=== PATIENT | female | born 1940 | race Caucasian/White ===

== ENCOUNTER → 2016-07-14 | Outpatient (CLI) | payer MEDICARE ==
--- NOTE | 2016-07-14 11:50 | FL ---
EXAMINATION TYPE: FL barium swallow DATE OF EXAM: 07/14/2016 CLINICAL HISTORY: Dysphagia, feels food getting stuck in the upper esophagus overlap month both solid s and liquids. TECHNIQUE: A double contrast esophagram is performed utilizing air and barium. A total of 48 second s of fluoroscopic time was utilized during procedure. COMPARISON: CTA chest July 22, 2013 FINDINGS: The esophagus shows some dysmotility particularly in the semiupright evaluation in emptying into the stomach. No evidence of hiatal hernia or stricture noted. No suspicious intraluminal mass or diverticulum is seen. No significant gastroesophageal reflux was seen during real time performance of this study. IMPRESSION: Some esophageal dysmotility otherwise unremarkable study.
== END | disposition home or self-care (01) ==
LOC: RADFLWHC 10:46
PROVIDERS: ATTEND Family Medicine
DX: K22.4 Dyskinesia of esophagus (principal)
CPT/HCPCS: 74220

== ENCOUNTER 2017-01-22 12:35 | Day surgery (SDC) | payer MEDICARE ==
[2017-01-21 13:31] VITALS: BMI 49.8
[~2017-01-22 12:35] MED LIST: DEXAMETHASONE SOD PHOSPHATE 4 MG/ML 1 ML VIAL IV ONE; FAMOTIDINE 20 MG/2 ML VIAL IV ONE; LACTATED RINGERS 1,000 ML IV SCH; ONDANSETRON 4 MG/2 ML VIAL IVP ONE; ceFAZolin 1,000 MG in DEXTROSE/WATER 1 50ML.BAG IV ONE; fentaNYL (PF) 50 MCG/ML 2 ML AMP IV PRN
[2017-01-22 13:32] LABS: Glucose,Whole Blood 100 mg/dL (75-99)
[2017-01-22 13:33] LABS: Basophils # (A) 0.1 k/uL (0-0.2); Basophils % (A) 1 %; CH 29.2; Eosinophils # (A) 0.4 k/uL (0-0.7); Eosinophils % (A) 4 %; HCT 42.4 % (34.0-46.0); HDW 2.42; HGB 13.6 gm/dL (11.4-16.0); Luc # (Auto) 0.11; Luc % (Auto) 1; Lymphocytes # (A) 2.1 k/uL (1.0-4.8); Lymphocytes % (A) 22 %; MCH 29.3 pg (25.0-35.0); MCV 91.8 fL (80.0-100.0); Mean Platelet Volume 7.3; Monocytes # (A) 0.6 k/uL (0-1.0); Monocytes % (A) 6 %; Neutrophils # (A) 6.4 k/uL (1.3-7.7); Neutrophils % (A) 67 %; RBC 4.62 m/uL (3.80-5.40); RDW 15.4 % (11.5-15.5); WBC 9.6 k/uL (3.8-10.6); WBC (Perox) 10.02
[2017-01-22] MEDS ORDERED: LIDOCAINE 1% 20 ML VIAL (10MG/ML) FOR IV START INTRADERMA ONE (13:33)
[2017-01-22] MEDS ORDERED: DEXAMETHASONE SOD PHOSPHATE 10 MG/ML 1 ML VIAL IV ONE (13:34)
[2017-01-22] MEDS ORDERED: fentaNYL (PF) 50 MCG/ML 2 ML AMP IV ONE (13:36)
[2017-01-22 13:45] LABS: ALT 37 U/L (9-52); AST 25 U/L (14-36); Alkaline Phosphatase 37 U/L (38-126); Anion Gap 9 mmol/L; Blood Urea Nitrogen 13 mg/dL (7-17); Calcium 9.7 mg/dL (8.4-10.2); Carbon Dioxide 30 mmol/L (22-30); Chloride 100 mmol/L (98-107); Glucose 105 mg/dL (74-99); Non-African American GFR(MDRD) >60 (>60 ml/min/1.73 sqM); Potassium 4.4 mmol/L (3.5-5.1); Sodium 139 mmol/L (137-145); Total Bilirubin 0.4 mg/dL (0.2-1.3); Total Protein 6.5 g/dL (6.3-8.2)
[2017-01-22] MEDS ORDERED: SODIUM CHLORIDE 0.9% 50 ML with ceFAZolin 1,000 MG IV ONE ×2 (13:59)
[2017-01-22] MEDS ORDERED: EPINEPHrine 1 MG/ML (MDV) 30 ML VIAL TOPICAL ONE (14:29)
--- NOTE | 2017-01-22 14:54 | P.OP ---
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 No pathology of the lungs were esophagus. No signs of any other tumors or masses of the head and neck. Lymphoma suspect. Procedure(s) Performed: Triple endoscopy with removal of a vallecular mass Anesthesia: GETA Surgeon: Amish Almanzar Estimated Blood Loss (ml): 20 Pathology: other (Vallecular mass) Condition: stable Disposition: PACU Indications for Procedure: This patient has had for aggressive dysphasia with associated cough. Examination reveals a large mass of the vallecula. Removal is recommended. Lymphoma suspect. Panendoscopy with removal of this mass was discussed and the patient wished to proceed forward. All risks, benefits, and alternative therapies were discussed. Consent was obtained and all questions were answered. Operative Findings: Large mass over 2 cm of the vallecula. Hard firm. Suspicious for lymphoma. Description of Procedure: This patient was taken to the operative room and placed in the supine position. A general inhalation anesthetic was administered to the patient by mask and subsequently intubated with a cuffed endotracheal tube by the department of anesthesia with a functioning IV line in place. Patient was monitored throughout the entire case by the department of anesthesia. Tooth guard was placed and a Jako laryngoscope was placed into the patient's mouth with care to avoid any trauma to the lips teeth gums and tongue. Mouth was opened tongue was depressed and the entire Kaveh and hypopharynx was evaluated including the piriform sinus epiglottic folds Ringwood cords postcricoid space vallecula epiglottis etc. this was placed on suspension on a Lewy and this large mass was identified. I removed the entire mass at his space which was attached to the lingual surface of the epiglottis into the vallecula. Hemostasis was obtained with use of topical adrenaline. After this large mass was removed with there is no visible mass left a bronchoscope was inserted into the patient's lungs and the lungs were evaluated with endoscopy. All 12 segments of the lungs were evaluated to the extent of visualization. There is no signs of any endobronchial lesions. The bronchoscope was removed and an esophagoscope was inserted and the entire length of the esophagus was evaluated. The esophagus was visualized from the upper to the lower esophageal sphincter the entire length was covered. All instrumentation was removed tooth guard was removed and the patient tolerated this well. Follow-up will be in the office in one week the patient is to contact me if any problems should arise.
[2017-01-22] MEDS ORDERED: HYDROmorphone 1 MG/ML 1 ML SYRINGE IVP ONE ×2 (15:05→15:24)
[2017-01-22] MEDS ORDERED: KETOROLAC 30 MG/ML 1 ML VIAL IVP ONE (15:06)
[2017-01-22 15:14] LABS: Glucose,Whole Blood 129 mg/dL (75-99)
[2017-01-22] MEDS ORDERED: ALBUTEROL NEBULIZED 2.5 MG/3 ML INHALATION STA (16:41)
[2017-01-22] MEDS ORDERED: ALBUTEROL NEBULIZED 2.5 MG/3 ML INHALATION PRN (17:18)
[2017-01-22] MEDS ORDERED: IBUPROFEN 600 MG TAB PO PRN (17:29)
[2017-01-22] MEDS: ACETAMINOPHEN TAB 500 MG TAB PO PRN (17:34)
[2017-01-22 17:44] LABS: Glucose,Whole Blood 201 mg/dL (75-99)
[2017-01-22] MEDS: INSULIN ASPART 100 UNIT/ML 1 ML 10 ML VIAL SQ SCH (17:55)
[2017-01-22 20:34] LABS: Glucose,Whole Blood 220 mg/dL (75-99)
[2017-01-22] MEDS: GABAPENTIN 400 MG CAP PO SCH ×2 (20:34→21:03)
[2017-01-22] MEDS: AMOXICILLIN 500 MG CAP PO SCH (20:34)
[2017-01-22] MEDS: VERAPAMIL 80 MG TAB PO SCH (20:34)
[2017-01-22] MEDS: OXYBUTYNIN CHLORIDE 5 MG TAB PO SCH (20:35)
[2017-01-22] MEDS: PRAZOSIN 1 MG CAP PO SCH (20:35)
[2017-01-22] MEDS ORDERED: LIDOCAINE VISCOUS 2% 15 ML CUP MUCOUS MEM PRN (20:42)
[2017-01-22] MEDS ORDERED: INSULIN DETEMIR 100 UNIT/ML 10 ML VIAL SQ SCH (21:00)
[2017-01-22] MEDS ORDERED: ATORVASTATIN 10 MG TAB PO SCH (21:00)
[2017-01-22] MEDS: IBUPROFEN 600 MG TAB PO SCH (21:07)
[2017-01-23] MEDS ORDERED: LEVOTHYROXINE 100 MCG TAB PO SCH (06:30)
[2017-01-23] MEDS ORDERED: INSULIN ASPART 100 UNIT/ML 1 ML 10 ML VIAL SQ SCH ×2 (07:30→12:30)
[2017-01-23 07:32] LABS: Glucose,Whole Blood 163 mg/dL (75-99)
[2017-01-23] MEDS: IBUPROFEN 600 MG TAB PO SCH ×2 (08:23→13:56)
[2017-01-23] MEDS: OXYBUTYNIN CHLORIDE 5 MG TAB PO SCH ×2 (08:23→16:29)
[2017-01-23] MEDS: PRAZOSIN 1 MG CAP PO SCH ×2 (08:24→16:29)
[2017-01-23] MEDS: VERAPAMIL 80 MG TAB PO SCH (08:24)
[2017-01-23] MEDS: AMOXICILLIN 500 MG CAP PO SCH (08:24)
[2017-01-23] MEDS: GABAPENTIN 400 MG CAP PO SCH ×2 (08:24→12:35)
[2017-01-23] MEDS ORDERED: FUROSEMIDE 40 MG TAB PO SCH (09:00)
[2017-01-23] MEDS ORDERED: LISINOPRIL 10 MG TAB PO SCH (09:00)
[2017-01-23] MEDS ORDERED: ALLOPURINOL 300 MG TAB PO SCH (09:00)
[2017-01-23] MEDS ORDERED: ATENOLOL 25 MG TAB PO SCH (09:00)
[2017-01-23 11:19] LABS: Glucose,Whole Blood 208 mg/dL (75-99)
[2017-01-23 12:16] LABS: Glucose,Whole Blood 199 mg/dL (75-99)
[2017-01-23 12:28] VITALS: RESP 18; TEMP 98.2
[2017-01-23] MEDS: ACETAMINOPHEN TAB 500 MG TAB PO PRN (12:35)
--- NOTE | 2017-01-23 14:55 | PN ---
PROGRESS NOTE DATE OF SERVICE: 01/23/17. CHIEF COMPLAINT: Respiratory failure. HISTORY OF PRESENT ILLNESS: This lady is feeling fine this morning. She has had no chest pain, shortness of breath, etc. She has had no bleeding. PHYSICAL EXAM: CHEST: Clear. Cardiac exam is normal. The abdomen is soft, nontender. IMPRESSION: 1. Respiratory failure. 2. Pickwickian syndrome. 3. Obesity. 4. Hypertension. 5. Diabetes. PLAN: Await further recommendations from Pulmonology. MMODL / IJN: [id number] /
--- NOTE | 2017-01-23 15:04 | HP ---
HISTORY AND PHYSICAL CHIEF COMPLAINT: Respiratory insufficiency. HISTORY OF PRESENT ILLNESS: This is another admission for this 77-year-old white female. She was in for an outpatient biopsy of a lesion on the epiglottis and had trouble with maintaining a good pulse ox. After surgery it was felt that she should be admitted. REVIEW OF SYSTEMS: She has had no confusion, syncope, neurologic deficits, change in vision or hearing, chest pain, palpitations, abdominal pain, etc. She has had no bleeding. Past medical history, family history, personal and social histories reveal that she has a significant problem with her weight, which causes a lot of difficulties for her. She is ALLERGIC to MACROBID, TETANUS, ISOPTIN AND SULFA. CURRENT MEDICATIONS: 1. Metformin 850 mg t.i.d. 2. Lantus 50 units once a day. 3. Prazosin 1 mg 3 times a day. 4. Glimepiride 4 mg once a day. 5. Levothyroxine 0.1 mg a day. 6. Verapamil CR 240 . 7. Allopurinol 300 mg once a day. 8. Atenolol 25 mg once a day. 9. Benazepril 10 mg once a day. 10.Lasix 20 mg once a day. 11.Lovastatin 20 mg at bedtime. 12.Vicodin 5 b.i.d. p.r.n. 13.Vitamin D 50,000 per month. 14.Humalog 4 units with breakfast, 6 with lunch and 10 with dinner. 15.Prilosec 20 mg once a day. 16.Gabapentin 400 mg 4 times a day. 17.Symbicort 160/4.5 two puffs twice a day. 18.Aspirin 81 mg. 19.Oxybutynin 5 mg 3 times a day. Remainder of the history is unremarkable. She used to smoke, but she does not any longer. PHYSICAL EXAMINATION: BMI is 50.5. Blood pressure is 150/56 with a pulse of 87, respirations of 34. She is afebrile. In general she appeared to be obese and slightly short of breath. Skin was slightly pale. Skin was dry. Head, ears, eyes, nose, mouth and throat were normal. Neck veins were not distended. It could be assessed. Carotids are normal. Ears were clear. Nose, mouth and throat were otherwise unremarkable. There was no blood seen in the throat. Chest was clear to auscultation and percussion. Cardiac exam demonstrated what sounded like sinus rhythm and no murmurs or extra sounds. The abdomen was very protuberant and nontender. Extremities were normal. Neurologically she was intact. ADMITTING DIAGNOSES: She is admitted to the hospital with the diagnoses: 1. Respiratory insufficiency. 2. Low pulse oximetry. 3. Obesity. 4. Possible pickwickian syndrome. 5. Hypertension. 6. Diabetes. PLAN: 1. Bed rest. 2. Monitor pulse ox. 3. Pulmonology consult. MMODL / IJN: [id number] /
--- NOTE | 2017-01-23 15:59 | XR ---
EXAMINATION TYPE: XR chest 1V DATE OF EXAM: 01/23/2017 COMPARISON: 12/27/2016 INDICATION: Hypoxemia TECHNIQUE: Single frontal view of the chest is obtained. FINDINGS: The heart size is enlarged. The pulmonary vasculature is normal. The lungs are clear. No suspicious infiltrates are evident. IMPRESSION: 1. Mild cardiomegaly.
[2017-01-23] MEDS ORDERED: NON-FORMULARY DRUG (Acetaminophen [Tylenol Arthritis] 1,300 MG) PO SCH (16:00)
[2017-01-23 16:05] VITALS: BP 191/80; PULSE 66
[2017-01-23 16:53] LABS: Glucose,Whole Blood 112 mg/dL (75-99)
[2017-01-23] MEDS: INSULIN ASPART 100 UNIT/ML 1 ML 10 ML VIAL SQ SCH (18:29)
--- NOTE | 2017-01-23 18:51 | P.CNPUL ---
History of Present Illness Consult date: 01/23/17 Reason for consult: hypoxemia History of present illness: This is a morbidly obese 77-year-old female patient with known history of obstructive sleep apnea and possibly component of a breast hypoventilation syndrome and history of COPD who was found to have a abnormal large vallecular mass and the patient was taken to the operating room by ENT and the patient underwent upper endoscopy and removal of the mass. The patient was supposed to get discharged home accordingly he was found to be hypoxic and for that reason she was kept in the hospital. If on a consultation was requested. The patient was placed on 2 L of oxygen by nasal cannula. With exertion she was desaturating as low as 83-84%. The patient claims that she has a pulse oximeter at home and typically she pulse ox is around 93-94%. She was a bit congested and she was having some increased wheezing more than the usual. She was not using incentive spirometer on a regular basis. Denied having any chest pain. No pleurisy. No hemoptysis no swelling in the lower extremities. Reported aspiration. An immediate chest x-ray was obtained and showed no acute abnormalities and it showed mild cardiomegaly. In fact by evening today the patient was already feeling better. Pulse ox on room air was up to 94-95%. However, she was still desaturating with activity although 2 L of October was enough to maintain above 90%. Despite all this, the patient was not having any new symptom and she felt rather stable. In terms of her COPD, the patient has been utilizing DuoNeb nebulized treatments around the clock on outpatient basis if she takes also Ventolin rescue inhaler. She has been compliant with her CPAP therapy was she did not bring his CPAP machine with her during this current hospitalization. She does not follow with stave machine tender on outpatient basis. Review of Systems Further review of system was done and the positive findings are almost above in history of present illness Past Medical History Past Medical History: Heart Failure, COPD, Diabetes Mellitus, Fibromyalgia, GERD /Reflux, Hyperlipidemia, Hypertension, Osteoarthritis (OA), Pneumonia, Skin Disorder, Sleep Apnea/CPAP/BIPAP, Thyroid Disorder Additional Past Medical History / Comment(s): COPD, obesity, obesity hypoventilation syndrome, obstructive sleep apnea, hiatal hernia, gout, psoriasis, cystic kidneys, sciatica, chronic back pain, fibromyalgia, diabetes mellitus, fibroid tumors per history, degenerative arthritis., And the patient also has had previous history of recurrent urine checked infections History of Any Multi-Drug Resistant Organisms: None Reported Past Surgical History: Tubal Ligation Additional Past Surgical History / Comment(s): D&C Past Anesthesia/Blood Transfusion Reactions: No Reported Reaction Past Psychological History: Anxiety Additional Psychological History / Comment(s): . Smoking Status: Former smoker Past Alcohol Use History: None Reported Additional Past Alcohol Use History / Comment(s): quit smoking 20 yrs ago, smoked for 30 yrs, 1 PPD Past Drug Use History: None Reported - Past Family History Mother Family Medical History: No Reported History Father Additional Family Medical History / Comment(s): pulmonary fibrosis Medications and Allergies Home Medications Medication Instructions Recorded Confirmed Type Albuterol Nebulized [Ventolin 2.5 mg INHALATION QID PRN 07/21/13 01/21/17 History Nebulized] Allopurinol [Zyloprim] 300 mg PO DAILY 07/21/13 01/21/17 History Atenolol [Tenormin] 25 mg PO DAILY 07/21/13 01/21/17 History Benazepril [Lotensin] 10 mg PO DAILY 07/21/13 01/21/17 History Gabapentin [Neurontin] 400 mg PO QID 07/21/13 01/21/17 History Insulin Glargine,Hum.rec.anlog 40 unit SQ HS 07/21/13 01/21/17 History [Lantus Solostar] Levothyroxine Sodium [Synthroid] 100 mcg PO DAILY 07/21/13 01/21/17 History Lovastatin [Mevacor] 20 mg PO HS 07/21/13 01/21/17 History Prazosin [Minipress] 1 mg PO TID 07/21/13 01/21/17 History Verapamil HCl [Verelan] 240 mg PO BID 07/21/13 01/21/17 History Glimepiride [Amaryl] 8 mg PO DAILY 05/06/14 01/21/17 History Oxybutynin Chloride [Ditropan] 5 mg PO TID 05/06/14 01/21/17 History metFORMIN HCL [Glucophage] 850 mg PO TID 05/06/14 01/21/17 History Acetaminophen [Tylenol Arthritis] 1,300 mg PO Q8HR 01/21/17 01/21/17 History Furosemide [Lasix] 40 mg PO DAILY 01/21/17 01/21/17 History Insulin Aspart [NovoLOG 2 unit SQ W/BRKFST 01/21/17 01/21/17 History (formulary)] Insulin Aspart [NovoLOG 7 unit SQ W/LUNCH 01/21/17 01/21/17 History (formulary)] Insulin Aspart [NovoLOG 10 unit SQ W/SUPPER 01/21/17 01/21/17 History (formulary)] Amoxicillin 1,000 mg PO BID #60 capsule 01/22/17 Rx Ibuprofen [Motrin] 600 mg PO Q6HR PRN #60 tab 01/22/17 Rx predniSONE 10 mg PO DIRECTED 9 Days #18 tab 01/23/17 Rx Allergies Allergy/AdvReac Type Severity Reaction Status Date / Time nitrofurantoin Allergy HIVES Verified 01/22/17 13:07 [From Macrobid] nitrofurantoin Allergy Rash/Hives Verified 01/22/17 13:07 macrocrystalline [From Macrobid] tetanus and diphtheria Allergy Swelling Verified 01/22/17 13:07 toxoids [tetanus & diphtheria toxoids] verapamil [From Isoptin] Allergy Rash/Hives Verified 01/22/17 13:07 Sulfa (Sulfonamide AdvReac Rash/Hives Verified 01/22/17 13:07 Antibiotics) Physical Exam Vitals: Vital Signs Temp Pulse Pulse Resp BP BP Pulse Ox 01/23/17 16:00 98.2 F 66 18 191/80 97 01/23/17 12:30 94 L 01/23/17 12:29 83 L 01/23/17 12:28 90 L 01/23/17 12:00 98.2 F 39 L 18 112/53 90 L 01/23/17 08:07 94 L 01/23/17 08:05 74 L 01/23/17 07:42 98.3 F 65 17 181/81 94 L 01/23/17 03:51 98.4 F 72 16 138/62 95 01/23/17 03:30 16 01/23/17 00:00 16 01/22/17 23:38 98.5 F 59 L 16 158/67 96 01/22/17 22:00 56 L 137/58 01/22/17 21:30 68 144/56 01/22/17 21:00 71 157/72 01/22/17 20:30 74 145/66 01/22/17 20:15 72 149/69 01/22/17 20:00 74 18 140/63 01/22/17 19:45 72 175/78 01/22/17 19:30 97.2 F L 76 18 137/85 95 Intake and Output 01/23/17 01/23/17 01/23/17 06:59 14:59 22:59 Other: Voiding Method Toilet # Voids 1 Obese, comfortable likely distress.Head exam was generally normal. There was no scleral icterus or corneal arcus. Mucous membranes were moist. Neck is short and supple and there is significant crowding of posterior pharynx. There is a little neck masses for now. Lung sounds are diminished bilaterally along with that there is some scattered expiratory wheezes throughout the lung barrios.Cardiac exam revealed the PMI to be normally situated and sized. The rhythm was regular and no extrasystoles were noted during several minutes of auscultation. The first and second heart sounds were normal and physiologic splitting of the second heart sound was noted. There were no murmurs, rubs, clicks, or gallops. Abdomen is obese soft nontender. No organomegaly. No direct tenderness rebound tensile guarding.Examination of the extremities revealed easily palpable radial, femoral and pedal pulses. There was no cyanosis , clubbing or edema. Neurologically the patient is awake and alert and there is no focal neurological deficit. Psychiatric the patient has appropriate mood and affect. Results - Laboratory Findings CBC and BMP: 01/22/17 13:24 01/22/17 13:24 Abnormal lab findings: Abnormal Labs 01/22/17 01/22/17 01/22/17 13:16 13:24 15:11 Glucose 105 H POC Glucose (mg/dL) 100 H 129 H Alkaline Phosphatase 37 L 01/22/17 01/22/17 01/23/17 17:43 20:31 07:28 Glucose POC Glucose (mg/dL) 201 H 220 H 163 H Alkaline Phosphatase 01/23/17 01/23/17 01/23/17 11:13 12:13 16:51 Glucose POC Glucose (mg/dL) 208 H 199 H 112 H Alkaline Phosphatase - Diagnostic Findings Chest x-ray: image reviewed Assessment and Plan Plan: Assessment 1 postoperative hypoxemia. I think that the patient was chronically hypoxemic and she admits that her room air pulse ox prior to her hospitalization was somewhat between drain to 94%. As such she has a component of chronic hypoxic respiratory failure in her oxygenation got worse following the procedure which included triple endoscopy and evacuation and excision of a vallecular lesion on the generator likely that the patient had developed postoperative atelectatic changes in lung bases contributing to her hypoxemia. No reported aspiration. Her COPD is slightly more active than the usual and this could be another contributing factor. Her chronic hypoxemia is most likely secondary to COPD and chronic obesity hypoventilation syndrome. 2 COPD 3 vallecular lesion, post resection awaiting pathology 4 morbid obesity 5 hypertension 6 fibromyalgia 7 diabetes mellitus 8 hypothyroidism 9 history of polycystic kidneys Plan The patient can be discharged home on DuoNeb neb last treatment [id number] , short course of prednisone burst taper starting with 30 mg for 3 days, 20 mg for 3 days and, grams for 3 days. Chest x-ray was reviewed and it shows no acute abnormalities. We'll arrange home O2 for this patient which I think it's ultimately going to be needed knowing that she has a tendency to become hypoxemic due to the above-mentioned comorbid conditions. We'll reevaluate her in the office in 2-3 weeks time and reassess the need for home O2. For now she can be discharged home on O2, portable tanks along with a prednisone burst taper. No evidence of any pneumonia. No evidence of any aspiration. No other comorbidities contributing to shortness of breath. Recommend taken the incentive spirometer home and performing it aggressively and this should also help with her oxygenation.
[2017-01-24] MEDS ORDERED: GLIMEPIRIDE 4 MG TAB PO SCH (09:00)
== END 2017-01-23 19:00 | disposition home health service (06) ==
LOC: OR 12:35 → 3OBS 14:56 → OR 01-23 19:00
PROVIDERS: ATTEND Otolaryngology
DX: J38.7 Other diseases of larynx (principal); E11.9 Type 2 diabetes mellitus without complications; I11.0 Hypertensive heart disease with heart failure; I50.9 Heart failure, unspecified; J96.11 Chronic respiratory failure with hypoxia; G47.33 Obstructive sleep apnea (adult) (pediatric); E66.2 Morbid (severe) obesity with alveolar hypoventilation; M79.7 Fibromyalgia; K21.9 Gastro-esophageal reflux disease without esophagitis; M19.90 Unspecified osteoarthritis, unspecified site; Z87.01 Personal history of pneumonia (recurrent); E07.9 Disorder of thyroid, unspecified; G89.29 Other chronic pain; K44.9 Diaphragmatic hernia without obstruction or gangrene; M10.9 Gout, unspecified; L40.9 Psoriasis, unspecified; N28.1 Cyst of kidney, acquired; M54.9 Dorsalgia, unspecified; Z99.89 Dependence on other enabling machines and devices; Z79.82 Long term (current) use of aspirin; Z79.4 Long term (current) use of insulin; Z79.899 Other long term (current) drug therapy; Z88.1 Allergy status to other antibiotic agents; Z88.2 Allergy status to sulfonamides; Z88.7 Allergy status to serum and vaccine; Z88.8 Allergy status to other drugs, medicaments and biological substances
CPT/HCPCS: 31540; 31622; 43191; 94640; 88305; 80053; 85025; 88342; 88331; 88341; 71010; J0171; J1100; J2405; J3010; J1885; J1170; J0690

== ENCOUNTER → 2017-03-06 | Outpatient (CLI) | payer MEDICARE ==
[2017-03-06 17:37] LABS: Blood Urea Nitrogen 14 mg/dL (7-17)
--- NOTE | 2017-03-07 21:48 | CT ---
EXAMINATION TYPE: CT ChestAbdPelvis w con DATE OF EXAM: 03/06/2017 COMPARISON: CTA chest July 22, 2013. CT abdomen September 28, 2009 HISTORY: Lymphoma. Suspect metastatic disease. Recent abnormal neck CT study with vallecula mass or l ymphoma discovered recently. CT DLP: 2582.5 mGycm. Automated Exposure Control for Dose Reduction was Utilized. CONTRAST: CT scan of the thorax, abdomen and pelvis is performed with IV Contrast, patient injected with 100ml mL of Omnipaque 300. FINDINGS: LUNGS: Dependent atelectasis is present in both lower lobes. There is no suspicious parenchymal nodul e or mass. There is no pleural effusion or pneumothorax seen bilaterally. The tracheobronchial talha e is patent. MEDIASTINUM: There are no greater than 1 cm hilar or mediastinal lymph nodes. There are stable sligh tly prominent but subcentimeter prevascular lymph nodes axial image 23. No pericardial effusion is se en. There is persistent mild cardiomegaly OTHER: No suspicious axillary adenopathy is seen.. LIVER/GB: Liver is diffusely hypodense consistent with fatty infiltration. PANCREAS: No significant abnormality is seen. SPLEEN: No significant abnormality is seen. ADRENALS: No significant abnormality is seen. KIDNEYS: There is some cortical thinning in both kidneys. There is simple appearing 1.5 cm cyst anter iorly mid pole level left kidney axial image 61 series 3 BOWEL: The oral contrast does not reach colonic level. There is no suspicious small or large bowel di latation. A few diverticula are seen in the left and sigmoid colon. There is no CT evidence for acute diverticulitis. GENITAL ORGANS: Heterogeneous slightly lobulated uterus is identified, there is 3.4 cm area likely re flecting subserosal fibroid, right ovarian lesion cannot be excluded on axial image 100. Pelvic ultra sound follow-up is advised to further evaluate. LYMPH NODES: No greater than 1cm abdominal or pelvic lymph nodes are appreciated. No suspicious groin adenopathy is noted. OSSEOUS STRUCTURES: There is exaggerated curvature in the thoracolumbar spine. There is moderate mult ilevel spurring and disc space narrowing. No suspicious destructive or lytic lesions are clearly iden tified. OTHER: No significant additional abnormality is seen. IMPRESSION: No suspicious adenopathy to suggest lymphoma involvement in the thorax abdomen or pelvis. Advise follow-up pelvic ultrasound for uterine or right ovarian abnormality.
== END | disposition home or self-care (01) ==
LOC: RADCTMAIN 16:58
PROVIDERS: ATTEND Internal Medicine Hematology & Oncology
DX: C82.01 Follicular lymphoma grade I, lymph nodes of head, face, and neck (principal)
CPT/HCPCS: 82565; 84520; 71260; 74177; 36415; Q9967

== ENCOUNTER → 2017-06-03 | Outpatient (CLI) | payer MEDICARE ==
--- NOTE | 2017-06-03 15:54 | US ---
EXAMINATION TYPE: US carotid duplex BILAT DATE OF EXAM: 06/03/2017 COMPARISON: NONE CLINICAL HISTORY: R09.89 CAROTID BRUIT. EXAM MEASUREMENTS: RIGHT: Peak Systolic Velocity (PSV) cm/sec ----- Right CCA: 70.6 ----- Right ICA: 178.0 ----- Right ECA: 73.3 ICA/CCA ratio: 2.5 RIGHT: End Diastole cm/sec ----- Right CCA: 14.0 ----- Right ICA: 40.9 ----- Right ECA: 16.3 LEFT: Peak Systolic Velocity (PSV) cm/sec ----- Left CCA: 79.7 ----- Left ICA: 121.5 ----- Left ECA: 121.5 ICA/CCA ratio: 1.5 LEFT: End Diastole cm/sec ----- Left CCA: 15.0 ----- Left ICA: 26.8 ----- Left ECA: 15.6 VERTEBRALS (direction of flow): Right Vertebral: Antegrade Left Vertebral: Antegrade Rhythm: Normal Mild amount of plaque visualized. Tortuous ICAs visualized bilaterally. Elevated velocities visualize d in the right ICA possibly due to tortuous vessel. Within the right neck, there is two hypoechoic areas visualized, the largest measuring 3.9 x 1.5 x 2 .3 cm, possible lymph nodes IMPRESSION: 1. There is plaque noted bilaterally with findings suggestive of a 50-69% stenosis involving the prox imal right ICA. However, there is a tortuous vasculature which can occasionally result in elevated ve locities. Therefore this could be correlated further with CTA of the carotid bifurcation to get a mel e assessment of the degree of stenosis. 2. There is evidence of pathologic lymphadenopathy within the right neck correlate clinically. Criteria for Assigning % of Stenosis / Diameter reduction (Estimation based on the indirect measurements of the internal carotid artery velocities (ICA PSV). 1. Normal (no stenosis)=ICA PSV < 125 cm/s: ratio < 2.0: ICA EDV<40 cm/s. 2. Less than 50% stenosis=ICA PSV < 125 cm/s: ratio < 2.0: ICA EDV<40 cm/s. 3. 50 to 69% stenosis=ICA PSV of 125 to 230 cm/s: ration 2.0 ? 4.0: ICA EDV 40-100 cm/s. 4. Greater than 70% stenosis to near occlusion= ICA PSV > 230 cm/s: ratio > 4.0: ICA EDV > 100 cm/s. 5. Near occlusion= ICA PSV velocities may be low or undetectable: variable ratio and ICA EDV. 6. Total occlusion=unable to detect flow.
== END | disposition home or self-care (01) ==
LOC: RADUSWWP 14:52
PROVIDERS: ATTEND Family Medicine
DX: I65.23 Occlusion and stenosis of bilateral carotid arteries (principal); R09.89 Other specified symptoms and signs involving the circulatory and respiratory systems; Z88.1 Allergy status to other antibiotic agents; Z88.7 Allergy status to serum and vaccine; Z88.8 Allergy status to other drugs, medicaments and biological substances
CPT/HCPCS: 93880

== ENCOUNTER 2017-10-13 12:59 | Emergency (ER) | payer MEDICARE ==
[2017-10-13 13:03] VITALS: RESP 20
[2017-10-13 13:51] LABS: HCT 40.5 % (34.0-46.0); HGB 12.6 gm/dL (11.4-16.0); Hypochromasia Slight; MCH 29.3 pg (25.0-35.0); MCHC 31.2 g/dL (31.0-37.0); MCV 94.2 fL (80.0-100.0); Mean Platelet Volume 6.9; Platelet Count 219 k/uL (150-450); RBC 4.31 m/uL (3.80-5.40); RDW 14.4 % (11.5-15.5); WBC 8.6 k/uL (3.8-10.6)
[2017-10-13 14:01] LABS: ALT 29 U/L (9-52); AST 21 U/L (14-36); Albumin 4.2 g/dL (3.5-5.0); Alkaline Phosphatase 46 U/L (38-126); Anion Gap 13 mmol/L; Blood Urea Nitrogen 23 mg/dL (7-17); Calcium 9.8 mg/dL (8.4-10.2); Carbon Dioxide 30 mmol/L (22-30); Chloride 96 mmol/L (98-107); Glucose 148 mg/dL (74-99); Potassium 4.9 mmol/L (3.5-5.1); Sodium 139 mmol/L (137-145); Total Bilirubin 0.3 mg/dL (0.2-1.3); Total Protein 6.8 g/dL (6.3-8.2)
[2017-10-13] MEDS ORDERED: FUROSEMIDE 10 MG/ML 4 ML VIAL IV STA (14:25)
--- NOTE | 2017-10-13 14:27 | ED ---
General Adult HPI - General Chief complaint: Extremity Problem,Nontraumatic Stated complaint: LEG SWELLING AND RASH Time Seen by Provider: 10/13/17 14:00 Source: patient, RN notes reviewed Mode of arrival: wheelchair Limitations: no limitations - History of Present Illness Initial comments: This is a 77-year-old female presents emergency Department complaining of bilateral leg swelling and redness over the last 4-5 days. Patient states it's progressing slowly getting worse. Patient states she's been trying to stay off her feet so it doesn't get worse but she is not elevating her legs all. Patient is not wearing WANDA hose. Patient is on Lasix are ready 40 mg once a day. Patient denies any fever chills. Patient states the distribution of the redness swelling is equal bilaterally. Patient denies any difficulty breathing or shortness of breath worsened normal. Patient denies any chest pain. Patient denies any lightheadedness dizziness or near syncopal episode. Patient denies any fever chills. - Related Data Home Medications Medication Instructions Recorded Confirmed Albuterol Nebulized [Ventolin 2.5 mg INHALATION RT-QID PRN 07/21/13 10/13/17 Nebulized] Allopurinol [Zyloprim] 300 mg PO DAILY 07/21/13 10/13/17 Atenolol [Tenormin] 25 mg PO DAILY 07/21/13 10/13/17 Benazepril [Lotensin] 10 mg PO DAILY 07/21/13 10/13/17 Gabapentin [Neurontin] 400 mg PO QID 07/21/13 10/13/17 Insulin Glargine,Hum.rec.anlog 40 unit SQ 07/21/13 10/13/17 [Lantus Solostar] Levothyroxine Sodium [Synthroid] 100 mcg PO DAILY 07/21/13 10/13/17 Lovastatin [Mevacor] 20 mg PO HS 07/21/13 10/13/17 Prazosin [Minipress] 1 mg PO TID 07/21/13 10/13/17 Verapamil HCl [Verelan] 240 mg PO BID 07/21/13 10/13/17 Glimepiride [Amaryl] 8 mg PO DAILY 05/06/14 10/13/17 Oxybutynin Chloride [Ditropan] 5 mg PO TID 05/06/14 10/13/17 metFORMIN HCL [Glucophage] 850 mg PO TID 05/06/14 10/13/17 Acetaminophen [Tylenol Arthritis] 1,300 mg PO Q8HR 01/21/17 10/13/17 Furosemide [Lasix] 40 mg PO DAILY 01/21/17 10/13/17 Insulin Aspart [NovoLOG 4 unit SQ W/BRKFST 01/21/17 10/13/17 (formulary)] Insulin Aspart [NovoLOG 7 unit SQ W/LUNCH 01/21/17 10/13/17 (formulary)] Insulin Aspart [NovoLOG 10 unit SQ W/SUPPER 01/21/17 10/13/17 (formulary)] Hydrochlorothiazide 25 mg PO DAILY 10/13/17 10/13/17 Ibuprofen 800 mg PO QID PRN 10/13/17 10/13/17 Omeprazole [PriLOSEC] 20 mg PO DAILY 10/13/17 10/13/17 Zolpidem [Ambien] 5 mg PO HS PRN 10/13/17 10/13/17 Allergies Allergy/AdvReac Type Severity Reaction Status Date / Time nitrofurantoin Allergy HIVES Verified 10/13/17 14:57 [From Macrobid] nitrofurantoin Allergy Rash/Hives Verified 10/13/17 14:57 macrocrystalline [From Macrobid] tetanus and diphtheria Allergy Swelling Verified 10/13/17 14:57 toxoids [tetanus & diphtheria toxoids] verapamil [From Isoptin] Allergy Rash/Hives Verified 10/13/17 14:57 Sulfa (Sulfonamide AdvReac Rash/Hives Verified 10/13/17 14:57 Antibiotics) Review of Systems ROS Statement: Those systems with pertinent positive or pertinent negative responses have been documented in the HPI. ROS Other: All systems not noted in ROS Statement are negative. Past Medical History Past Medical History: Heart Failure, COPD, Diabetes Mellitus, Fibromyalgia, GERD /Reflux, Hyperlipidemia, Hypertension, Osteoarthritis (OA), Pneumonia, Skin Disorder, Sleep Apnea/CPAP/BIPAP, Thyroid Disorder Additional Past Medical History / Comment(s): COPD, obesity, obesity hypoventilation syndrome, obstructive sleep apnea, hiatal hernia, gout, psoriasis, cystic kidneys, sciatica, chronic back pain, fibromyalgia, diabetes mellitus, fibroid tumors per history, degenerative arthritis., And the patient also has had previous history of recurrent urine checked infections History of Any Multi-Drug Resistant Organisms: None Reported Past Surgical History: Tubal Ligation Additional Past Surgical History / Comment(s): D&C Past Anesthesia/Blood Transfusion Reactions: No Reported Reaction Past Psychological History: Anxiety Smoking Status: Former smoker Past Alcohol Use History: None Reported Past Drug Use History: None Reported - Past Family History Mother Family Medical History: No Reported History Father Additional Family Medical History / Comment(s): pulmonary fibrosis General Exam - General Exam Comments Initial Comments: GENERAL: Patient is well-developed and well-nourished. Patient is nontoxic and well- hydrated and is in mild distress. ENT: Neck is soft and supple. No significant lymphadenopathy is noted. Oropharynx is clear. Moist mucous membranes. Neck has full range of motion without eliciting any pain. EYES: The sclera were anicteric and conjunctiva were pink and moist. Extraocular movements were intact and pupils were equal round and reactive to light. Eyelids were unremarkable. PULMONARY: Patient has some crackles in the bases bilaterally CARDIOVASCULAR: There is a regular rate and rhythm without any murmurs gallops or rubs. ABDOMEN: Soft and nontender with normal bowel sounds. No palpable organomegaly was noted. There is no palpable pulsatile mass. SKIN: Patient erythema of both legs from the ankle to about 40 split bilaterally. Patient also has 2+ edema bilaterally NEUROLOGIC: Patient is alert and oriented x3. Cranial nerves II through XII are grossly intact. Motor and sensory are also intact. Normal speech, volume and content. Symmetrical smile. MUSCULOSKELETAL: Normal extremities with adequate strength and full range of motion. LYMPHATICS: No significant lymphadenopathy is noted PSYCHIATRIC: Normal psychiatric evaluation. Limitations: no limitations Course Vital Signs 10/13/17 13:01 Temperature 98.5 F Pulse Rate 60 Respiratory 20 Rate Blood Pressure 150/86 O2 Sat by Pulse 92 L Oximetry Medical Decision Making - Medical Decision Making EKG shows normal sinus rhythm at 60 bpm [place] interval 264 QRS is 76 QT interval 412 QTC is 412. EKG shows no ST segment elevation or depression. Chest x-ray shows no acute abnormality. Patient was given Lasix in the emergency department. - Lab Data Result diagrams: 10/13/17 13:39 10/13/17 13:39 Lab Results 10/13/17 10/13/17 10/13/17 Range/Units 13:39 13:39 13:39 WBC 8.6 (3.8-10.6) k/uL RBC 4.31 (3.80-5.40) m/uL Hgb 12.6 (11.4-16.0) gm/dL Hct 40.5 (34.0-46.0) % MCV 94.2 (80.0-100.0) fL MCH 29.3 (25.0-35.0) pg MCHC 31.2 (31.0-37.0) g/dL RDW 14.4 (11.5-15.5) % Plt Count 219 (150-450) k/uL Hypochromasia Slight Sodium 139 (137-145) mmol/L Potassium 4.9 (3.5-5.1) mmol/L Chloride 96 L (98-107) mmol/L Carbon Dioxide 30 (22-30) mmol/L Anion Gap 13 mmol/L BUN 23 H (7-17) mg/dL Creatinine 0.66 (0.52-1.04) mg/dL Est GFR (CKD-EPI)AfAm >90 (>60 ml/min/1.73 sqM) Est GFR (CKD-EPI)NonAf 85 (>60 ml/min/1.73 sqM) Glucose 148 H (74-99) mg/dL Calcium 9.8 (8.4-10.2) mg/dL Magnesium 1.7 (1.6-2.3) mg/dL Total Bilirubin 0.3 (0.2-1.3) mg/dL AST 21 (14-36) U/L ALT 29 (9-52) U/L Alkaline Phosphatase 46 (38-126) U/L NT-Pro-B Natriuret Pep pg/mL Total Protein 6.8 (6.3-8.2) g/dL Albumin 4.2 (3.5-5.0) g/dL 10/13/17 Range/Units 13:39 WBC (3.8-10.6) k/uL RBC (3.80-5.40) m/uL Hgb (11.4-16.0) gm/dL Hct (34.0-46.0) % MCV (80.0-100.0) fL MCH (25.0-35.0) pg MCHC (31.0-37.0) g/dL RDW (11.5-15.5) % Plt Count (150-450) k/uL Hypochromasia Sodium (137-145) mmol/L Potassium (3.5-5.1) mmol/L Chloride (98-107) mmol/L Carbon Dioxide (22-30) mmol/L Anion Gap mmol/L BUN (7-17) mg/dL Creatinine (0.52-1.04) mg/dL Est GFR (CKD-EPI)AfAm (>60 ml/min/1.73 sqM) Est GFR (CKD-EPI)NonAf (>60 ml/min/1.73 sqM) Glucose (74-99) mg/dL Calcium (8.4-10.2) mg/dL Magnesium (1.6-2.3) mg/dL Total Bilirubin (0.2-1.3) mg/dL AST (14-36) U/L ALT (9-52) U/L Alkaline Phosphatase (38-126) U/L NT-Pro-B Natriuret Pep 202 pg/mL Total Protein (6.3-8.2) g/dL Albumin (3.5-5.0) g/dL Disposition Clinical Impression: Chronic cellulitis, Edema, peripheral Disposition: HOME SELF-CARE Condition: Good Additional Instructions: Patient should increase her Lasix to 40 mg twice a day for 3 days and follow-up with her physician. New. Patient is to return to the emergency department if the swelling is worse if there is any difficulty breathing or if there is any changes in the redness. Is patient prescribed a controlled substance at d/c from ED?: No Referrals: Aguilar Hays MD [Primary Care Provider] - 1-2 days Time of Disposition: 15:20
--- NOTE | 2017-10-13 14:55 | XR ---
EXAMINATION TYPE: XR chest 2V DATE OF EXAM: 10/13/2017 COMPARISON: 01/23/2017 INDICATION: Difficulty breathing TECHNIQUE: Frontal and lateral views of the chest are obtained. FINDINGS: The heart size is enlarged. The pulmonary vasculature is prominent. The lungs are clear. IMPRESSION: 1. No acute pulmonary process. 2. Cardiomegaly
[2017-10-13 16:00] VITALS: BP 156/69; PULSE 78; TEMP 98.3
== END 2017-10-13 15:30 | disposition home or self-care (01) ==
LOC: EC 12:59
DX: L03.116 Cellulitis of left lower limb (principal); L03.115 Cellulitis of right lower limb; I11.0 Hypertensive heart disease with heart failure; I50.9 Heart failure, unspecified; J44.9 Chronic obstructive pulmonary disease, unspecified; M10.9 Gout, unspecified; E11.9 Type 2 diabetes mellitus without complications; M79.7 Fibromyalgia; K21.9 Gastro-esophageal reflux disease without esophagitis; E78.5 Hyperlipidemia, unspecified; M19.90 Unspecified osteoarthritis, unspecified site; G47.33 Obstructive sleep apnea (adult) (pediatric); Z99.89 Dependence on other enabling machines and devices; Z87.2 Personal history of diseases of the skin and subcutaneous tissue; Z87.891 Personal history of nicotine dependence; Z79.4 Long term (current) use of insulin; Z79.899 Other long term (current) drug therapy; Z88.1 Allergy status to other antibiotic agents; Z88.7 Allergy status to serum and vaccine; Z88.8 Allergy status to other drugs, medicaments and biological substances; Z88.2 Allergy status to sulfonamides
CPT/HCPCS: 36415; 93005; 83880; 80053; 83735; 85027; 87040; 71046; 99284; 96374; J1940

== ENCOUNTER → 2017-12-22 | Outpatient (CLI) | payer MEDICARE ==
[2017-12-22 15:28] LABS: Blood Urea Nitrogen 19 mg/dL (7-17); Potassium 4.7 mmol/L (3.5-5.1)
== END | disposition home or self-care (01) ==
LOC: LABPAT 14:41
PROVIDERS: ATTEND Otolaryngology
DX: Z01.812 Encounter for preprocedural laboratory examination (principal); Z98.890 Other specified postprocedural states
CPT/HCPCS: 36415; 82565; 84132; 84520

== ENCOUNTER 2017-12-24 09:05 | Day surgery (SDC) | payer MEDICARE ==
[2017-12-21 11:36] VITALS: BMI 49.8
[~2017-12-24 09:05] MED LIST changes: +DEXAMETHASONE SOD PHOSPHATE 10 MG/ML 1 ML VIAL IV ONE; -DEXAMETHASONE SOD PHOSPHATE 4 MG/ML 1 ML VIAL IV ONE; +LIDOCAINE 1% 20 ML VIAL (10MG/ML) FOR IV START INTRADERMA PRN; +MIDAZOLAM 2 MG/2 ML VIAL IV PRN; +Pre Op ABX Message 1 EACH MISC MISCELLANE ONE; -ceFAZolin 1,000 MG in DEXTROSE/WATER 1 50ML.BAG IV ONE
[2017-12-24 10:30] LABS: Glucose,Whole Blood 135 mg/dL (75-99)
[2017-12-24] MEDS ORDERED: fentaNYL (PF) 50 MCG/ML 2 ML AMP IVP ONE (10:56)
[2017-12-24] MEDS ORDERED: DOXAPRAM 20 MG/ML 20 ML VIAL IV ONE (11:13)
[2017-12-24 12:23] VITALS: TEMP 97.2
--- NOTE | 2017-12-24 12:23 | P.OP ---
Date of Procedure: 12/24/17 Preoperative Diagnosis: Epiglottic mass Postoperative Diagnosis: Same Procedure(s) Performed: Direct microscopic laryngoscopy with removal of epiglottic mass Anesthesia: GETA Surgeon: Amish Almanzar Estimated Blood Loss (ml): 5 Pathology: other (epigottic mass) Condition: stable Disposition: PACU Indications for Procedure: This patient had previously been diagnosed with malignancy. The patient developed a growth on her epiglottis and removal was recommended for biopsy purposes. All risks, benefits, and alternative therapies were discussed. Consent was obtained and all questions were answered. 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 A general inhalation anesthetic was administered to the patient by mask and subsequently intubated with a cuffed endotracheal tube by the department of anesthesia with a functioning IV line in place. The patient was monitored throughout the entire case by the department of anesthesia. A tooth guard was placed over the upper gums and a Jako laryngoscope was placed into the patient' s mouth with care to avoid any trauma to the lips teeth gums or tongue. Mouth was opened to was depressed and the entire oropharynx and hypopharynx was evaluated. The base of tongue vallecula epiglottis lateral pharynx piriform sinuses vocal cords true and false vocal cords postcricoid space etc. was evaluated placed on suspension on a Lewy and under microscopic evaluation this mass was noted. I did remove the entire epiglottic mass in detail and consent as way as a fresh analysis to rule out lymphoma. This was not placed in formalin. The patient tolerated this well and was taken to postanesthesia recovery
[2017-12-24] MEDS ORDERED: ALBUTEROL NEBULIZED 2.5 MG/3 ML INHALATION ONE (12:32)
[2017-12-24] MEDS ORDERED: FUROSEMIDE 10 MG/ML 4 ML VIAL IV ONE (12:34)
[2017-12-24 12:56] LABS: Glucose,Whole Blood 173 mg/dL (75-99)
[2017-12-24 13:23] VITALS: RESP 16
[2017-12-24 14:04] VITALS: BP 138/90; PULSE 68
== END 2017-12-24 14:25 | disposition home or self-care (01) ==
LOC: OR 09:05
PROVIDERS: ATTEND Otolaryngology
DX: J38.7 Other diseases of larynx (principal); Z85.72 Personal history of non-Hodgkin lymphomas; K21.9 Gastro-esophageal reflux disease without esophagitis; M19.90 Unspecified osteoarthritis, unspecified site; E11.9 Type 2 diabetes mellitus without complications; J44.9 Chronic obstructive pulmonary disease, unspecified; E66.9 Obesity, unspecified; Z68.42 Body mass index [BMI] 45.0-49.9, adult; G47.33 Obstructive sleep apnea (adult) (pediatric); E07.9 Disorder of thyroid, unspecified; Z87.891 Personal history of nicotine dependence; I11.0 Hypertensive heart disease with heart failure; I50.9 Heart failure, unspecified; E78.5 Hyperlipidemia, unspecified; Z79.890 Hormone replacement therapy; Z79.4 Long term (current) use of insulin; Z99.81 Dependence on supplemental oxygen; Z79.899 Other long term (current) drug therapy; Z88.1 Allergy status to other antibiotic agents; Z88.2 Allergy status to sulfonamides
CPT/HCPCS: 31535; 88305; J1100; J1940; J2405; J3010

== ENCOUNTER → 2018-03-20 | Outpatient (CLI) | payer MEDICARE | END | disposition home or self-care (01) | LOC: RADPETMAIN 10:28 | PROVIDERS: ATTEND Internal Medicine Hematology & Oncology | DX: Z53.9 Procedure and treatment not carried out, unspecified reason (principal) ==

== ENCOUNTER → 2018-05-21 | Outpatient (CLI) | payer MEDICARE ==
--- NOTE | 2018-05-24 07:54 | PE ---
EXAMINATION TYPE: PET CT fusion skull to thigh DATE OF EXAM: 05/21/2018 COMPARISON: CT chest abdomen and pelvis March 06, 2017. 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 TECHNIQUE: Following the intravenous administration of 15.45 mCi of F-18 FDG, whole body images are performed from the skull base to the midthigh. Images are reviewed on the computer in the coronal, a xial, and sagittal planes. Reconstructed rotating images are created on independent workstation and reviewed on the computer. A noncontrast CT is performed in conjunction with the PET scan. Blood glucose level 168 SCAN: Initial Scan FINDINGS: Exam noted suboptimal secondary to patient's large body habitus. Mediastinal mean SUV: 1.24 Liver mean SUV: 2.76 SKULL BASE AND NECK: No areas of suspicious hypermetabolic uptake or adenopathy identified. CHEST, MEDIASTINUM, AND HILAR REGION: No areas of restricted hypermetabolic uptake. ABDOMEN AND PELVIS: Uptake in bowel and bladder is present. There is leakage of urine inferior to gerri dder noted. No suspicious adenopathy or hypermetabolic lymph nodes clearly are present. Liver and spl een are noted normal in size without suspicious focal hypermetabolic uptake. OSSEOUS STRUCTURES: No suspicious hypermetabolic uptake is present. OTHER CT: There is cardiomegaly. Dependent atelectasis bilateral lower lobes is present. Some cortical thinning in both kidneys is redemonstrated. Abdominal aorta is small in caliber with mild to moderate calcified plaque along the periphery. Some scattered pelvic phleboliths are present. Lobulated uterus is redemonstrated. Exaggerated kyphosis of thoracolumbar spine is redemonstrated with multilevel spurring. There is disc space narrowing and vacuum disc phenomenon at several levels in the lumbar spine. IMPRESSION: No suspicious adenopathy or hypermetabolic uptake to suggest metastatic disease or active neoplasm.
== END | disposition home or self-care (01) ==
LOC: RADPETMAIN 16:15
PROVIDERS: ATTEND Internal Medicine Hematology & Oncology
DX: C82.01 Follicular lymphoma grade I, lymph nodes of head, face, and neck (principal)
CPT/HCPCS: 78815; A9552

== ENCOUNTER 2018-08-19 14:53 | Inpatient (IN) | payer MEDICARE ==
[2018-08-19 14:58] LABS: Glucose,Whole Blood 66 mg/dL (75-99)
--- NOTE | 2018-08-19 15:37 | ED ---
General Adult HPI - General Chief complaint: Altered Mental Status Stated complaint: Hypoglycemia, altered Time Seen by Provider: 08/19/18 15:00 Source: patient, family, EMS, RN notes reviewed Mode of arrival: EMS Limitations: no limitations - History of Present Illness Initial comments: This is a 78-year-old female presents emergency Department with a past medical history significant for diabetes. Patient comes in today because she was altered mentally. Patient had the ambulance called by her son and EMS arrived they did a blood glucose and found her level to be 41. Patient does admit that she was not eating enough because she has lost her appetite recently. Patient states she took her insulin but then did not eat a very big lunch. Patient denies any symptoms prior to or after. Patient denies chest pain difficulty breathing shortness of breath. Patient denies any abdominal pain patient denies any nausea or vomiting per patient denies headache patient denies numbness weakness per patient denies lightheadedness or dizziness. Patient states she has pedal edema but she always does and is normal today. Patient states currently she feels at her baseline. - Related Data Home Medications Medication Instructions Recorded Confirmed Albuterol Nebulized [Ventolin 2.5 mg INHALATION RT-QID PRN 07/21/13 08/19/18 Nebulized] Allopurinol [Zyloprim] 300 mg PO DAILY 07/21/13 08/19/18 Atenolol [Tenormin] 25 mg PO DAILY 07/21/13 08/19/18 Benazepril [Lotensin] 10 mg PO DAILY 07/21/13 08/19/18 Gabapentin [Neurontin] 400 mg PO QID 07/21/13 08/19/18 Insulin Glargine,Hum.rec.anlog 30 unit SQ 07/21/13 08/19/18 [Lantus Solostar] Levothyroxine Sodium [Synthroid] 100 mcg PO DAILY 07/21/13 08/19/18 Lovastatin [Mevacor] 20 mg PO 07/21/13 08/19/18 Prazosin [Minipress] 1 mg PO TID 07/21/13 08/19/18 Glimepiride [Amaryl] 4 mg PO AC-BID 05/06/14 08/19/18 metFORMIN HCL [Glucophage] 850 mg PO TID 05/06/14 08/19/18 Furosemide [Lasix] 40 mg PO DAILY 01/21/17 08/19/18 Omeprazole [PriLOSEC] 20 mg PO BID 10/13/17 08/19/18 INSULIN LISPRO (HumaLOG) [HumaLOG] 10 units SQ AC-TID 08/19/18 08/19/18 Verapamil HCl [Verapamil ER] 240 mg PO BID 08/19/18 08/19/18 Allergies Allergy/AdvReac Type Severity Reaction Status Date / Time nitrofurantoin Allergy Rash/Hives Verified 08/19/18 15:57 Sulfa (Sulfonamide Allergy Rash/Hives Verified 08/19/18 15:57 Antibiotics) STEROIDS AdvReac Hallucinati Uncoded 08/19/18 15:57 ons Review of Systems ROS Statement: Those systems with pertinent positive or pertinent negative responses have been documented in the HPI. ROS Other: All systems not noted in ROS Statement are negative. Past Medical History Past Medical History: Cancer, Heart Failure, COPD, Diabetes Mellitus, Fibromyalg ia, GERD/Reflux, Hyperlipidemia, Hypertension, Osteoarthritis (OA), Pneumonia, Skin Disorder, Sleep Apnea/CPAP/BIPAP, Thyroid Disorder Additional Past Medical History / Comment(s): COPD, obesity, obesity hypoventilation syndrome, lymphoma, obstructive sleep apnea, hiatal hernia, gout, psoriasis, cystic kidneys, sciatica, chronic back pain, , diabetes mellitus, fibroid tumors per history, degenerative arthritis., And the patient also has had previous history of recurrent urine infections History of Any Multi-Drug Resistant Organisms: None Reported Past Surgical History: Tubal Ligation Additional Past Surgical History / Comment(s): D&C, tumor removed from throat Past Anesthesia/Blood Transfusion Reactions: No Reported Reaction, Postoperative Nausea & Vomiting (PONV) Past Psychological History: Anxiety Smoking Status: Former smoker Past Alcohol Use History: None Reported Past Drug Use History: None Reported - Past Family History Mother Family Medical History: No Reported History Father Additional Family Medical History / Comment(s): pulmonary fibrosis General Exam - General Exam Comments Initial Comments: GENERAL: Patient is well-developed and well-nourished. Patient is nontoxic and well- hydrated and is in no acute distress. ENT: Neck is soft and supple. No significant lymphadenopathy is noted. Oropharynx is clear. Moist mucous membranes. Neck has full range of motion without eliciting any pain. EYES: The sclera were anicteric and conjunctiva were pink and moist. Extraocular movements were intact and pupils were equal round and reactive to light. Eyelids were unremarkable. PULMONARY: Unlabored respirations. Good breath sounds bilaterally. No audible rales rhonchi or wheezing was noted. CARDIOVASCULAR: Patient is bradycardic at 50 beats a minute ABDOMEN: Soft and nontender with normal bowel sounds. Patient is morbidly obese SKIN: Skin is clear with no lesions or rashes and otherwise unremarkable. NEUROLOGIC: Patient is alert and oriented x3. Cranial nerves II through XII are grossly intact. Motor and sensory are also intact. Normal speech, volume and content. Symmetrical smile. MUSCULOSKELETAL: Normal extremities with adequate strength and full range of motion. 2+ edema bilaterally LYMPHATICS: No significant lymphadenopathy is noted PSYCHIATRIC: Normal psychiatric evaluation. Limitations: no limitations Course Vital Signs 08/19/18 08/19/18 08/19/18 14:57 15:03 16:26 Temperature 97.4 F L 97.4 F L Pulse Rate 52 L 52 L 53 L Respiratory 16 16 18 Rate Blood Pressure 122/44 122/44 109/44 O2 Sat by Pulse 99 99 98 Oximetry 08/19/18 08/19/18 17:00 18:15 Temperature Pulse Rate 50 L 55 L Respiratory 18 18 Rate Blood Pressure 109/45 109/70 O2 Sat by Pulse 98 98 Oximetry Medical Decision Making - Medical Decision Making EKG shows a third-degree block with a junctional rhythm at 53 bpm QRS is 90 QT interval 418 QTC is 392. Patient's EKG shows no ST segment elevation or depr ession. Patient was able to the emergency department keep her sugar up. I spoke with Dr. Lopez and he agreed to admit the patient admitted the patient I spoke with Dr. Rangel he will see the patient for the third-degree heart block and wanted me to stop the beta david and verapamil - Lab Data Result diagrams: 08/19/18 15:13 08/19/18 15:13 Lab Results 08/19/18 08/19/18 08/19/18 Range/Units 14:55 15:13 15:13 WBC 10.4 (3.8-10.6) k/uL RBC 3.74 L (3.80-5.40) m/uL Hgb 10.7 L (11.4-16.0) gm/dL Hct 35.0 (34.0-46.0) % MCV 93.6 (80.0-100.0) fL MCH 28.6 (25.0-35.0) pg MCHC 30.6 L (31.0-37.0) g/dL RDW 15.6 H (11.5-15.5) % Plt Count 214 (150-450) k/uL Neutrophils % 80 % Lymphocytes % 13 % Monocytes % 5 % Eosinophils % 1 % Basophils % 0 % Neutrophils # 8.3 H (1.3-7.7) k/uL Lymphocytes # 1.3 (1.0-4.8) k/uL Monocytes # 0.5 (0-1.0) k/uL Eosinophils # 0.1 (0-0.7) k/uL Basophils # 0.0 (0-0.2) k/uL Hypochromasia Moderate PT (9.0-12.0) sec INR (<1.2) APTT (22.0-30.0) sec Sodium 139 (137-145) mmol/L Potassium 5.4 H (3.5-5.1) mmol/L Chloride 103 (98-107) mmol/L Carbon Dioxide 25 (22-30) mmol/L Anion Gap 11 mmol/L BUN 51 H (7-17) mg/dL Creatinine 1.16 H (0.52-1.04) mg/dL Est GFR (CKD-EPI)AfAm 52 (>60 ml/min/1.73 sqM) Est GFR (CKD-EPI)NonAf 45 (>60 ml/min/1.73 sqM) Glucose 32 L* (74-99) mg/dL POC Glucose (mg/dL) 66 L (75-99) mg/dL POC Glu Piping Drafter ID Fior Muhammad Calcium 8.3 L (8.4-10.2) mg/dL Total Bilirubin 0.3 (0.2-1.3) mg/dL AST 26 (14-36) U/L ALT 21 (9-52) U/L Alkaline Phosphatase 48 (38-126) U/L Troponin I (0.000-0.034) ng/mL Total Protein 5.8 L (6.3-8.2) g/dL Albumin 3.5 (3.5-5.0) g/dL Urine Color Urine Appearance (Clear) Urine pH (5.0-8.0) Ur Specific [place] (1.001-1.035) Urine Protein (Negative) Urine Glucose (UA) (Negative) Urine Ketones (Negative) Urine Blood (Negative) Urine Nitrite (Negative) Urine Bilirubin (Negative) Urine Urobilinogen (<2.0) mg/dL Ur Leukocyte Esterase (Negative) Urine RBC (0-5) /hpf Urine WBC (0-5) /hpf Ur Squamous Epith Cells (0-4) /hpf Urine Bacteria (None) /hpf Hyaline Casts (0-2) /lpf Urine Mucus (None) /hpf Urine Opiates Screen (NotDetected) Ur Oxycodone Screen (NotDetected) Urine Methadone Screen (NotDetected) Ur Propoxyphene Screen (NotDetected) Ur Barbiturates Screen (NotDetected) U Tricyclic Antidepress (NotDetected) Ur Phencyclidine Scrn (NotDetected) Ur Amphetamines Screen (NotDetected) U Methamphetamines Scrn (NotDetected) U Benzodiazepines Scrn (NotDetected) Urine Cocaine Screen (NotDetected) U Marijuana (THC) Screen (NotDetected) 08/19/18 08/19/18 08/19/18 Range/Units 15:13 15:13 16:19 WBC (3.8-10.6) k/uL RBC (3.80-5.40) m/uL Hgb (11.4-16.0) gm/dL Hct (34.0-46.0) % MCV (80.0-100.0) fL MCH (25.0-35.0) pg MCHC (31.0-37.0) g/dL RDW (11.5-15.5) % Plt Count (150-450) k/uL Neutrophils % % Lymphocytes % % Monocytes % % Eosinophils % % Basophils % % Neutrophils # (1.3-7.7) k/uL Lymphocytes # (1.0-4.8) k/uL Monocytes # (0-1.0) k/uL Eosinophils # (0-0.7) k/uL Basophils # (0-0.2) k/uL Hypochromasia PT 10.2 (9.0-12.0) sec INR 0.9 (<1.2) APTT 23.2 (22.0-30.0) sec Sodium (137-145) mmol/L Potassium (3.5-5.1) mmol/L Chloride (98-107) mmol/L Carbon Dioxide (22-30) mmol/L Anion Gap mmol/L BUN (7-17) mg/dL Creatinine (0.52-1.04) mg/dL Est GFR (CKD-EPI)AfAm (>60 ml/min/1.73 sqM) Est GFR (CKD-EPI)NonAf (>60 ml/min/1.73 sqM) Glucose (74-99) mg/dL POC Glucose (mg/dL) 52 L (75-99) mg/dL POC Glu Piping Drafter ID Mitzi Cole Calcium (8.4-10.2) mg/dL Total Bilirubin (0.2-1.3) mg/dL AST (14-36) U/L ALT (9-52) U/L Alkaline Phosphatase (38-126) U/L Troponin I <0.012 (0.000-0.034) ng/mL Total Protein (6.3-8.2) g/dL Albumin (3.5-5.0) g/dL Urine Color Urine Appearance (Clear) Urine pH (5.0-8.0) Ur Specific [place] (1.001-1.035) Urine Protein (Negative) Urine Glucose (UA) (Negative) Urine Ketones (Negative) Urine Blood (Negative) Urine Nitrite (Negative) Urine Bilirubin (Negative) Urine Urobilinogen (<2.0) mg/dL Ur Leukocyte Esterase (Negative) Urine RBC (0-5) /hpf Urine WBC (0-5) /hpf Ur Squamous Epith Cells (0-4) /hpf Urine Bacteria (None) /hpf Hyaline Casts (0-2) /lpf Urine Mucus (None) /hpf Urine Opiates Screen (NotDetected) Ur Oxycodone Screen (NotDetected) Urine Methadone Screen (NotDetected) Ur Propoxyphene Screen (NotDetected) Ur Barbiturates Screen (NotDetected) U Tricyclic Antidepress (NotDetected) Ur Phencyclidine Scrn (NotDetected) Ur Amphetamines Screen (NotDetected) U Methamphetamines Scrn (NotDetected) U Benzodiazepines Scrn (NotDetected) Urine Cocaine Screen (NotDetected) U Marijuana (THC) Screen (NotDetected) 08/19/18 08/19/18 08/19/18 Range/Units 16:45 16:45 16:56 WBC (3.8-10.6) k/uL RBC (3.80-5.40) m/uL Hgb (11.4-16.0) gm/dL Hct (34.0-46.0) % MCV (80.0-100.0) fL MCH (25.0-35.0) pg MCHC (31.0-37.0) g/dL RDW (11.5-15.5) % Plt Count (150-450) k/uL Neutrophils % % Lymphocytes % % Monocytes % % Eosinophils % % Basophils % % Neutrophils # (1.3-7.7) k/uL Lymphocytes # (1.0-4.8) k/uL Monocytes # (0-1.0) k/uL Eosinophils # (0-0.7) k/uL Basophils # (0-0.2) k/uL Hypochromasia PT (9.0-12.0) sec INR (<1.2) APTT (22.0-30.0) sec Sodium (137-145) mmol/L Potassium (3.5-5.1) mmol/L Chloride (98-107) mmol/L Carbon Dioxide (22-30) mmol/L Anion Gap mmol/L BUN (7-17) mg/dL Creatinine (0.52-1.04) mg/dL Est GFR (CKD-EPI)AfAm (>60 ml/min/1.73 sqM) Est GFR (CKD-EPI)NonAf (>60 ml/min/1.73 sqM) Glucose (74-99) mg/dL POC Glucose (mg/dL) 108 H (75-99) mg/dL POC Glu Piping Drafter ID Calcium (8.4-10.2) mg/dL Total Bilirubin (0.2-1.3) mg/dL AST (14-36) U/L ALT (9-52) U/L Alkaline Phosphatase (38-126) U/L Troponin I (0.000-0.034) ng/mL Total Protein (6.3-8.2) g/dL Albumin (3.5-5.0) g/dL Urine Color Yellow Urine Appearance Clear (Clear) Urine pH 5.0 (5.0-8.0) Ur Specific [place] 1.014 (1.001-1.035) Urine Protein Negative (Negative) Urine Glucose (UA) Negative (Negative) Urine Ketones Negative (Negative) Urine Blood Negative (Negative) Urine Nitrite Positive H (Negative) Urine Bilirubin Negative (Negative) Urine Urobilinogen <2.0 (<2.0) mg/dL Ur Leukocyte Esterase Small H (Negative) Urine RBC 1 (0-5) /hpf Urine WBC 12 H (0-5) /hpf Ur Squamous Epith Cells 2 (0-4) /hpf Urine Bacteria Rare H (None) /hpf Hyaline Casts 24 H (0-2) /lpf Urine Mucus Rare H (None) /hpf Urine Opiates Screen Not Detected (NotDetected) Ur Oxycodone Screen Not Detected (NotDetected) Urine Methadone Screen Not Detected (NotDetected) Ur Propoxyphene Screen Not Detected (NotDetected) Ur Barbiturates Screen Not Detected (NotDetected) U Tricyclic Antidepress Not Detected (NotDetected) Ur Phencyclidine Scrn Not Detected (NotDetected) Ur Amphetamines Screen Not Detected (NotDetected) U Methamphetamines Scrn Not Detected (NotDetected) U Benzodiazepines Scrn Not Detected (NotDetected) Urine Cocaine Screen Not Detected (NotDetected) U Marijuana (THC) Screen Not Detected (NotDetected) 08/19/18 Range/Units 17:52 WBC (3.8-10.6) k/uL RBC (3.80-5.40) m/uL Hgb (11.4-16.0) gm/dL Hct (34.0-46.0) % MCV (80.0-100.0) fL MCH (25.0-35.0) pg MCHC (31.0-37.0) g/dL RDW (11.5-15.5) % Plt Count (150-450) k/uL Neutrophils % % Lymphocytes % % Monocytes % % Eosinophils % % Basophils % % Neutrophils # (1.3-7.7) k/uL Lymphocytes # (1.0-4.8) k/uL Monocytes # (0-1.0) k/uL Eosinophils # (0-0.7) k/uL Basophils # (0-0.2) k/uL Hypochromasia PT (9.0-12.0) sec INR (<1.2) APTT (22.0-30.0) sec Sodium (137-145) mmol/L Potassium (3.5-5.1) mmol/L Chloride (98-107) mmol/L Carbon Dioxide (22-30) mmol/L Anion Gap mmol/L BUN (7-17) mg/dL Creatinine (0.52-1.04) mg/dL Est GFR (CKD-EPI)AfAm (>60 ml/min/1.73 sqM) Est GFR (CKD-EPI)NonAf (>60 ml/min/1.73 sqM) Glucose (74-99) mg/dL POC Glucose (mg/dL) 102 H (75-99) mg/dL POC Glu Piping Drafter ID Fior Muhammad Calcium (8.4-10.2) mg/dL Total Bilirubin (0.2-1.3) mg/dL AST (14-36) U/L ALT (9-52) U/L Alkaline Phosphatase (38-126) U/L Troponin I (0.000-0.034) ng/mL Total Protein (6.3-8.2) g/dL Albumin (3.5-5.0) g/dL Urine Color Urine Appearance (Clear) Urine pH (5.0-8.0) Ur Specific [place] (1.001-1.035) Urine Protein (Negative) Urine Glucose (UA) (Negative) Urine Ketones (Negative) Urine Blood (Negative) Urine Nitrite (Negative) Urine Bilirubin (Negative) Urine Urobilinogen (<2.0) mg/dL Ur Leukocyte Esterase (Negative) Urine RBC (0-5) /hpf Urine WBC (0-5) /hpf Ur Squamous Epith Cells (0-4) /hpf Urine Bacteria (None) /hpf Hyaline Casts (0-2) /lpf Urine Mucus (None) /hpf Urine Opiates Screen (NotDetected) Ur Oxycodone Screen (NotDetected) Urine Methadone Screen (NotDetected) Ur Propoxyphene Screen (NotDetected) Ur Barbiturates Screen (NotDetected) U Tricyclic Antidepress (NotDetected) Ur Phencyclidine Scrn (NotDetected) Ur Amphetamines Screen (NotDetected) U Methamphetamines Scrn (NotDetected) U Benzodiazepines Scrn (NotDetected) Urine Cocaine Screen (NotDetected) U Marijuana (THC) Screen (NotDetected) Critical Care Time Critical Care Time: Yes Total Critical Care Time: 35 Disposition Clinical Impression: Hypoglycemia, Urinary tract infection, Third degree heart block Disposition: ADMITTED IP TO THIS HOSP Referrals: Aguilar Hays MD [Primary Care Provider] - 1-2 days Time of Disposition: 18:42
[2018-08-19 16:03] LABS: Basophils % (A) 0 %; Eosinophils # (A) 0.1 k/uL (0-0.7); Eosinophils % (A) 1 %; HGB 10.7 gm/dL (11.4-16.0); Hypochromasia Moderate; Lymphocytes # (A) 1.3 k/uL (1.0-4.8); Lymphocytes % (A) 13 %; MCH 28.6 pg (25.0-35.0); MCHC 30.6 g/dL (31.0-37.0); MCV 93.6 fL (80.0-100.0); Mean Platelet Volume 7.3; Monocytes # (A) 0.5 k/uL (0-1.0); Monocytes % (A) 5 %; Neutrophils # (A) 8.3 k/uL (1.3-7.7); Neutrophils % (A) 80 %; Platelet Count 214 k/uL (150-450); RBC 3.74 m/uL (3.80-5.40); RDW 15.6 % (11.5-15.5); WBC 10.4 k/uL (3.8-10.6)
[2018-08-19 16:09] LABS: Albumin 3.5 g/dL (3.5-5.0); Calcium 8.3 mg/dL (8.4-10.2); Total Bilirubin 0.3 mg/dL (0.2-1.3); Total Protein 5.8 g/dL (6.3-8.2)
[2018-08-19 16:12] LABS: INR 0.9 (<1.2); Partial Thromboplastin Time 23.2 sec (22.0-30.0); Prothrombin Time 10.2 sec (9.0-12.0)
[2018-08-19 16:15] LABS: Potassium 5.4 mmol/L (3.5-5.1)
[2018-08-19 16:20] LABS: Glucose,Whole Blood 52 mg/dL (75-99)
[2018-08-19] MEDS ORDERED: DEXTROSE 50% SYRINGE 50 ML IVP STA (16:20)
[2018-08-19] MEDS ORDERED: ACETAMINOPHEN TAB 325 MG TAB PO STA (16:25)
--- NOTE | 2018-08-19 16:41 | XR ---
EXAMINATION TYPE: XR chest 2V DATE OF EXAM: 08/19/2018 COMPARISON: 10/13/2017 HISTORY: Hypoglycemia. Altered mental status. TECHNIQUE: Frontal and lateral views of the chest are obtained. FINDINGS: Heart appears enlarged. There is mild pulmonary congestion. There are chest leads. There i s no definite pleural effusion. There is some coarsening of the lung markings. IMPRESSION: Cardiomegaly and mild pulmonary fibrosis. No overt heart failure. No significant change.
[2018-08-19 16:57] LABS: Glucose,Whole Blood 108 mg/dL (75-99)
[2018-08-19 17:15] LABS: Appearance,Urine Clear (Clear); Bacteria,Urine Rare /hpf; Bilirubin,Urine Negative (Negative); Blood,Urine Negative (Negative); Color,Urine Yellow; Glucose,Urine (UA) Negative (Negative); Hyaline Casts,Urine 24 /lpf (0-2); Ketones,Urine Negative (Negative); Leukocyte Esterase,Urine Small (Negative); Mucus,Urine Rare /hpf; Nitrite,Urine Positive (Negative); Protein,Urine Negative (Negative); RBC,Urine 1 /hpf (0-5); Specific Gravity,Urine 1.014 (1.001-1.035); Squamous Epithelial Cell,Urine 2 /hpf (0-4); Urobilinogen,Urine <2.0 mg/dL (<2.0); WBC,Urine 12 /hpf (0-5)
[2018-08-19 17:17] LABS: Amphetamine Screen,Urine Not Detected (NotDetected); Barbiturate Screen,Urine Not Detected (NotDetected); Benzodiazepines Screen,Urine Not Detected (NotDetected); Cocaine Screen,Urine Not Detected (NotDetected); Methadone Screen, Urine Not Detected (NotDetected); Opiate Screen,Urine Not Detected (NotDetected); Oxycodone Screen, Urine Not Detected (NotDetected); Phencyclidine Screen,Urine Not Detected (NotDetected); Tricyclic Antidepressant,Urine Not Detected (NotDetected); Urn Cannabinoid Scrn Not Detected (NotDetected)
[2018-08-19] MEDS ORDERED: cefTRIAXone IN SWFI 1,000 MG/10 ML SYRINGE IVP STA (17:24)
[2018-08-19 17:53] LABS: Glucose,Whole Blood 102 mg/dL (75-99)
[2018-08-19] MEDS ORDERED: SODIUM CHLORIDE 0.9% 1,000 ML IV ONE (19:04)
[2018-08-19 20:17] LABS: T4, Free (Free Thyroxine) 1.08 ng/dL (0.78-2.19)
[2018-08-19 20:48] LABS: Glucose,Whole Blood 113 mg/dL (75-99)
[2018-08-19 21:39] LABS: Glucose,Whole Blood 107 mg/dL (75-99)
[2018-08-19] MEDS ORDERED: ACETAMINOPHEN TAB 500 MG TAB PO PRN (22:04)
[2018-08-19] MEDS: metFORMIN 850 MG TAB PO SCH (22:31)
[2018-08-19] MEDS ORDERED: Magnesium Replacement Protocol 1 EACH MISC MISCELLANE PRN (22:50)
[2018-08-19] MEDS: MAGNESIUM SULFATE-D5W PMX 1 GM in DEXTROSE/WATER 1 100ML.BAG IVPB SCH (23:09)
[2018-08-19] MEDS: GABAPENTIN 400 MG CAP PO SCH (23:09)
[2018-08-20] MEDS: MAGNESIUM SULFATE-D5W PMX 1 GM in DEXTROSE/WATER 1 100ML.BAG IVPB SCH ×2 (00:50→02:00)
[2018-08-20 00:57] LABS: Glucose,Whole Blood 137 mg/dL (75-99)
[2018-08-20] MEDS: ALBUTEROL NEBULIZED 2.5 MG/3 ML INHALATION PRN ×3 (01:08→11:20)
[2018-08-20] MEDS ORDERED: FUROSEMIDE 10 MG/ML 4 ML VIAL IV STA (05:47)
[2018-08-20 06:03] LABS: Glucose,Whole Blood 101 mg/dL (75-99)
[2018-08-20] MEDS: LEVOTHYROXINE 100 MCG TAB PO SCH (06:03)
--- NOTE | 2018-08-20 08:53 | P.CRDCN ---
History of Present Illness Consult date: 08/20/18 Requesting physician: Aguilar Hays Reason for Consult (text): Complete heart block Chief complaint: Mental status changes History of present illness: This is a pleasant 78-year-old female with history of hypertension, diabetes, hyperlipidemia, sleep apnea, COPD, psoriasis, presented to the hospital with altered mental status. Her son called EMS, on arrival her blood sugar was checked which came back to be in the range of 40. Patient had taken her insulin but had not been eating enough at home because of decreased appetite. She denies any symptoms of abdominal discomfort, no chest discomfort or palpitations, denies any dizziness or lightheadedness. Chest x-ray showed cardiomegaly and mild pulmonary fibrosis. EKG on presentation here showed a significant sinus bradycardia with evidence of a junctional escape beats . Blood pressure on arrival 120/40 with a heart rate of 50, 99% on room air. White blood cell count 10.4, hemoglobin 10.7, platelet count 214, sodium 139, potassium 5.4, BUN 51 and creatinine 1.1. Glucose on arrival 32, magnesium 1.4, 2.3 this morning. Troponin 0.012. TSH 5.3 free T4 1.0. at the time of my examination this morning, patient is alert and oriented, symptom-free. This morning patient is in a normal sinus rhythm. Past Medical History Past Medical History: Cancer, Heart Failure, COPD, Diabetes Mellitus, Fibromyalgia, GERD/Reflux, Hyperlipidemia, Hypertension, Osteoarthritis (OA), Pneumonia, Skin Disorder, Sleep Apnea/CPAP/BIPAP, Thyroid Disorder Additional Past Medical History / Comment(s): COPD, obesity, obesity hypoventilation syndrome, lymphoma, obstructive sleep apnea, hiatal hernia, gout, psoriasis, cystic kidneys, sciatica, chronic back pain, , diabetes mellitus, fibroid tumors per history, degenerative arthritis., And the patient also has had previous history of recurrent urine infections History of Any Multi-Drug Resistant Organisms: None Reported Past Surgical History: Tubal Ligation Additional Past Surgical History / Comment(s): D&C, tumor removed from throat Past Anesthesia/Blood Transfusion Reactions: No Reported Reaction, Postoperative Nausea & Vomiting (PONV) Past Psychological History: Anxiety Additional Psychological History / Comment(s): . Smoking Status: Former smoker Past Alcohol Use History: None Reported Additional Past Alcohol Use History / Comment(s): quit smoking 20 yrs ago, smoked for 30 yrs, 1 PPD Past Drug Use History: None Reported - Past Family History Mother Family Medical History: No Reported History Father Additional Family Medical History / Comment(s): pulmonary fibrosis Medications and Allergies Home Medications Medication Instructions Recorded Confirmed Type Albuterol Nebulized [Ventolin 2.5 mg INHALATION RT-QID PRN 07/21/13 08/19/18 History Nebulized] Allopurinol [Zyloprim] 300 mg PO DAILY 07/21/13 08/19/18 History Atenolol [Tenormin] 25 mg PO DAILY 07/21/13 08/19/18 History Benazepril [Lotensin] 10 mg PO DAILY 07/21/13 08/19/18 History Gabapentin [Neurontin] 400 mg PO QID 07/21/13 08/19/18 History Insulin Glargine,Hum.rec.anlog 30 unit SQ HS 07/21/13 08/19/18 History [Lantus Solostar] Levothyroxine Sodium [Synthroid] 100 mcg PO DAILY 07/21/13 08/19/18 History Lovastatin [Mevacor] 20 mg PO HS 07/21/13 08/19/18 History Prazosin [Minipress] 1 mg PO TID 07/21/13 08/19/18 History Glimepiride [Amaryl] 4 mg PO AC-BID 05/06/14 08/19/18 History metFORMIN HCL [Glucophage] 850 mg PO TID 05/06/14 08/19/18 History Furosemide [Lasix] 40 mg PO DAILY 01/21/17 08/19/18 History Omeprazole [PriLOSEC] 20 mg PO BID 10/13/17 08/19/18 History Acetaminophen [Tylenol] 500 mg PO Q6H PRN 08/19/18 08/19/18 History Ascorbic Acid [Vitamin C] 1 tab PO DAILY 08/19/18 08/19/18 History Cyclobenzaprine [Flexeril] 1 tab PO Q8HR PRN 08/19/18 08/19/18 History INSULIN LISPRO (HumaLOG) [HumaLOG] 10 units SQ AC-TID 08/19/18 08/19/18 History Verapamil HCl [Verapamil ER] 240 mg PO BID 08/19/18 08/19/18 History Allergies Allergy/AdvReac Type Severity Reaction Status Date / Time nitrofurantoin Allergy Rash/Hives Verified 08/19/18 15:57 Sulfa (Sulfonamide Allergy Rash/Hives Verified 08/19/18 15:57 Antibiotics) STEROIDS AdvReac Hallucinati Uncoded 08/19/18 15:57 ons Physical Exam Vitals: Vital Signs Temp Pulse Pulse Resp BP BP Pulse Ox 08/20/18 06:26 73 18 08/20/18 06:19 77 18 08/20/18 04:10 97.9 F 69 22 166/84 98 08/20/18 01:15 62 16 08/20/18 01:08 64 16 08/19/18 23:49 63 21 107/57 98 08/19/18 22:12 97.8 F 43 L 22 98/59 99 08/19/18 20:48 98 F 53 L 16 117/36 99 08/19/18 19:57 97.8 F 43 L 22 98/59 99 08/19/18 18:15 55 L 18 109/70 98 08/19/18 17:00 50 L 18 109/45 98 08/19/18 16:26 53 L 18 109/44 98 08/19/18 15:03 97.4 F L 52 L 16 122/44 99 08/19/18 14:57 97.4 F L 52 L 16 122/44 99 Intake and Output 08/19/18 08/20/18 08/20/18 22:59 06:59 14:59 Intake Total 530 300 Balance 530 300 Intake: IV 50 Sodium Chloride 0.9% 1, 50 000 ml @ 50 mls/hr IV . Q20H [facility] Rx#:[id number] Intake, IV Titration 300 Amount Magnesium Sulfate-D5w Pmx 300 1 gm In Dextrose/Water 1 100ml.bag @ 100 mls/hr IVPB Q1H [facility] Rx#: [id number] Oral 480 Other: Voiding Method Bedside Commode # Voids 1 # Bowel Movements 1 Weight 120.5 kg PHYSICAL EXAMINATION: GENERAL: This is a 78-year-old female in no acute distress at the time of my examination HEENT: Head is atraumatic, normocephalic. Pupils equal, round. Sclera anicteric. Conjunctiva are clear. Mucous membranes of the mouth are moist. Neck is supple. There is no elevated jugular venous pressure.No carotid bruit is heard. HEART EXAMINATION: Heart S1, S2 soft systolic murmur is heard . CHEST EXAMINATION: Lungs are clear to auscultation and precussion. No chest wall tenderness is noted on palpation or with deep breathing. ABDOMEN: Soft, obese, nontender. Bowel sounds are heard. No organomegaly noted. EXTREMITIES: 2+ peripheral pulses with evidence of peripheral edema and no calf tenderness noted. NEUROLOGIC patient is awake, alert and oriented 3 . . Results 08/19/18 15:13 08/19/18 15:13 Cardiac Enzymes 08/19/18 08/19/18 Range/Units 15:13 15:13 AST 26 (14-36) U/L Troponin I <0.012 (0.000-0.034) ng/mL Coagulation 08/19/18 Range/Units 15:13 PT 10.2 (9.0-12.0) sec APTT 23.2 (22.0-30.0) sec CBC 08/19/18 Range/Units 15:13 WBC 10.4 (3.8-10.6) k/uL RBC 3.74 L (3.80-5.40) m/uL Hgb 10.7 L (11.4-16.0) gm/dL Hct 35.0 (34.0-46.0) % Plt Count 214 (150-450) k/uL Comprehensive Metabolic Panel 08/19/18 Range/Units 15:13 Sodium 139 (137-145) mmol/L Potassium 5.4 H (3.5-5.1) mmol/L Chloride 103 (98-107) mmol/L Carbon Dioxide 25 (22-30) mmol/L BUN 51 H (7-17) mg/dL Creatinine 1.16 H (0.52-1.04) mg/dL Glucose 32 L* (74-99) mg/dL Calcium 8.3 L (8.4-10.2) mg/dL AST 26 (14-36) U/L ALT 21 (9-52) U/L Alkaline Phosphatase 48 (38-126) U/L Total Protein 5.8 L (6.3-8.2) g/dL Albumin 3.5 (3.5-5.0) g/dL Current Medications Generic Name Dose Route Start Last Admin Trade Name Freq PRN Reason Stop Dose Admin Acetaminophen 650 mg 08/20/18 01:02 Tylenol Tab PO Q6HR PRN Fever and/ or Pain Albuterol Sulfate 2.5 mg 08/19/18 22:04 08/20/18 06:18 Ventolin Nebulized INHALATION 2.5 mg RT-QID PRN Administration Shortness Of Breath Allopurinol 300 mg 08/20/18 09:00 Zyloprim PO DAILY [facility] Gabapentin 400 mg 08/19/18 22:15 08/19/18 23:09 Neurontin PO 400 mg QID [facility] Administration Ceftriaxone Sodium 1 gm/ 50 mls @ 100 mls/hr 08/20/18 09:00 Sodium Chloride IVPB Q24HR [facility] Sodium Chloride 1,000 mls @ 50 mls/hr 08/19/18 19:04 08/19/18 20:57 Saline 0.9% IV 08/20/18 15:03 50 mls/hr .Q20H [facility] Administration Levothyroxine Sodium 100 mcg 08/20/18 06:30 08/20/18 06:03 Synthroid PO 100 mcg DAILY@0630 [facility] Administration Metformin HCl 850 mg 08/19/18 22:30 08/19/18 22:31 Glucophage PO Not Given TID [facility] Miscellaneous Information 1 each 08/19/18 22:50 Magnesium Per Protocol MISCELLANE DAILY PRN Per Protocol Protocol Pantoprazole Sodium 40 mg 08/20/18 09:00 Protonix PO BID [facility] Intake and Output 08/19/18 08/20/18 08/20/18 22:59 06:59 14:59 Intake Total 530 300 Balance 530 300 Intake: IV 50 Sodium Chloride 0.9% 1, 50 000 ml @ 50 mls/hr IV . Q20H [facility] Rx#:[id number] Intake, IV Titration 300 Amount Magnesium Sulfate-D5w Pmx 300 1 gm In Dextrose/Water 1 100ml.bag @ 100 mls/hr IVPB Q1H [facility] Rx#: [id number] Oral 480 Other: Voiding Method Bedside Commode # Voids 1 # Bowel Movements 1 Weight 120.5 kg 08/19/18 15:13 08/19/18 15:13 EKG Interpretations (text) Initial EKG on presentation here showed a complete heart block Assessment and Plan Plan: Assessment and plan #1 hyperglycemia with associated mental status changes #2 severe sinus bradycardia with evidence of a junctional escape beats #3 hypothyroidism #4 hypertension #5 hyperlipidemia #6 diabetes #7 sleep apnea #8 COPD #9 GERD #10 hypomagnesemia Plan TSH level came back at 5.3, recommend increasing the dose of Synthroid. Beta david and verapamil have been placed on hold. Obtain echocardiogram with Doppler study. Further recommendations to follow. DNP note has been reviewed, I agree with a documented findings and plan of care. Patient was seen and examined.
[2018-08-20] MEDS: ACETAMINOPHEN TAB 325 MG TAB PO PRN ×2 (10:10→22:57)
[2018-08-20] MEDS: PANTOPRAZOLE 40 MG TABLET PO SCH ×2 (10:11→20:59)
[2018-08-20] MEDS: ALLOPURINOL 300 MG TAB PO SCH (10:11)
[2018-08-20] MEDS: GABAPENTIN 400 MG CAP PO SCH ×4 (10:11→20:59)
[2018-08-20] MEDS: metFORMIN 850 MG TAB PO SCH ×3 (10:11→20:59)
--- NOTE | 2018-08-20 11:23 | PN ---
PROGRESS NOTE CHIEF COMPLAINTS: 1. Bradycardia and idioventricular rhythm. 2. Hypoglycemia. HISTORY OF PRESENT ILLNESS: This lady is improved in the sense that her pulse is now up in the 60s and her blood pressure is elevated. She is extremely dyspneic, however. She was given a dose of IV Lasix and is now diuresing profusely. PHYSICAL EXAM: Skin is dry. She is pale. Chest demonstrates extensive rales and rhonchi throughout with inspiratory and expiratory wheezing and prolonged expiratory phase. Cardiac exam is unchanged. IMPRESSION: 1. Hypoglycemia. 2. Arrhythmia. 3. Acute congestive heart failure. 4. Chronic congestive heart failure. PLAN: 1. Continue with diuresis. 2. Await Cardiology evaluation. MMODL / IJN: [id number] /
--- NOTE | 2018-08-20 11:29 | HP ---
HISTORY AND PHYSICAL CHIEF COMPLAINT: Weakness, hypoglycemia and bradycardia. HISTORY OF PRESENT ILLNESS: This is another admission for this 78-year-old white female. She is an insulin dependent diabetic. She has had a history of lymphoma of the throat. She came into the emergency room with a blood sugar of 30, but she is also found to have a pulse between 30 and 40 and looked like idioventricular rhythm according to the emergency room physician. She denied any chest pain, shortness of breath, etc. She was admitted. REVIEW OF SYSTEMS: She has had no focal neurologic deficits, change in vision or hearing, chest pain, cough, hemoptysis, sputum production, murmurs, rheumatic fever, orthopnea, PND, abdominal pain, nausea, vomiting, hematemesis, melena, hematochezia, jaundice, hematuria, frequency, urgency, renal failure, etc. Past medical history, family history and personal and social histories reveal that she cannot take Macrobid, tetanus, sulfa. She is on Humalog 4 units for breakfast, 6 at lunch and 10 bedtime along with metformin 850 mg t.i.d., levothyroxine 0.1 mg once a day, paresis 1 mg t.i.d., glimepiride 4 mg twice a day, lovastatin 20 at bedtime, verapamil 240 mg twice a day, atenolol 25 mg once a day, Benazepril 10 mg once a day, Allopurinol 300 mg once a day, Pepcid 20 mg once a day, vitamin D, Lasix 40 mg once a day, Lantus 50 units once a day, omeprazole 20 mg once a day, gabapentin 400 four times a day, Symbicort 160/4.5 two puffs twice a day, aspirin 81 mg a day, oxybutynin 5 mg t.i.d. Remainder of her history is unremarkable. She used to smoke but does not any longer. She does not abuse alcohol. She is quite obese. She is very immobile. PHYSICAL EXAM: Blood pressure is 101/60 with a pulse now in the 60s. She is afebrile and respirations were 36. In general, she appeared to be pale, obese and very short of breath. Skin was dry, lymph nodes not enlarged. Head, ears, eyes, nose, mouth, and throat were normal. Neck veins could not be assessed. Thyroid was not enlarged. Carotids seem to be normal. Chest demonstrated inspiratory and expiratory wheezing with extensive rales and rhonchi. Cardiac exam demonstrated a grade 1/6 systolic murmur with a rate in the 60s now. S3 and S4 could not be appreciated. The abdomen is protuberant and soft. The extremities demonstrated about 3+ edema. Neurologically. she is intact. She is admitted to the hospital diagnoses: 1. Hypoglycemia. 2. Insulin-dependent type 2 diabetes mellitus. 3. Bradycardia and DTO ventricular rhythm. 4. Probable acute congestive heart failure. 5. Chronic congestive heart failure. 6. Obesity. PLAN: 1. Bed rest. 2. IV fluids. 3. Correct hypoglycemia with IV glucose infusion. 4. Cardiology consult. 5. Echocardiogram. 6. BNP. MMMARIANGELL / YUMIKON: [id number] /
[2018-08-20 11:59] LABS: Glucose,Whole Blood 209 mg/dL (75-99)
[2018-08-20 16:29] LABS: Glucose,Whole Blood 151 mg/dL (75-99)
[2018-08-20 19:12] LABS: Hemoglobin A1C 5.9 % (4.0-6.0)
[2018-08-20 20:48] LABS: Glucose,Whole Blood 137 mg/dL (75-99)
[2018-08-21] MEDS: ALBUTEROL NEBULIZED 2.5 MG/3 ML INHALATION PRN (02:03)
[2018-08-21] MEDS: ACETAMINOPHEN TAB 325 MG TAB PO PRN ×2 (04:53→10:36)
[2018-08-21 06:18] LABS: Glucose,Whole Blood 109 mg/dL (75-99)
[2018-08-21] MEDS: LEVOTHYROXINE 100 MCG TAB PO SCH (08:33)
[2018-08-21] MEDS: GABAPENTIN 400 MG CAP PO SCH ×4 (08:50→20:37)
[2018-08-21] MEDS: metFORMIN 850 MG TAB PO SCH ×3 (08:50→20:37)
[2018-08-21] MEDS: PANTOPRAZOLE 40 MG TABLET PO SCH ×2 (08:50→20:37)
[2018-08-21] MEDS: ALLOPURINOL 300 MG TAB PO SCH (08:50)
[2018-08-21] MEDS ORDERED: SPIRONOLACTONE 25 MG TAB PO STA (09:52)
[2018-08-21] MEDS ORDERED: SACUBITRIL/VALSARTAN 24 MG-26 MG TABLET PO SCH (10:00)
[2018-08-21] MEDS ORDERED: amLODIPine 10 MG TAB PO SCH (10:45)
[2018-08-21] MEDS: ALBUTEROL NEBULIZED 2.5 MG/3 ML INHALATION SCH ×3 (11:26→20:47)
[2018-08-21 11:36] LABS: Basophils % (A) 0 %; Eosinophils # (A) 0.1 k/uL (0-0.7); Eosinophils % (A) 1 %; HCT 34.1 % (34.0-46.0); HGB 10.2 gm/dL (11.4-16.0); Hypochromasia Moderate; Lymphocytes % (A) 11 %; MCH 28.2 pg (25.0-35.0); MCHC 29.9 g/dL (31.0-37.0); MCV 94.3 fL (80.0-100.0); Mean Platelet Volume 6.8; Monocytes # (A) 0.4 k/uL (0-1.0); Monocytes % (A) 5 %; Neutrophils # (A) 7.4 k/uL (1.3-7.7); Neutrophils % (A) 82 %; Platelet Count 227 k/uL (150-450); RBC 3.62 m/uL (3.80-5.40); WBC 9.1 k/uL (3.8-10.6)
[2018-08-21 11:42] LABS: ALT 21 U/L (9-52); AST 16 U/L (14-36); African American GFR (CKD) >90 (>60 ml/min/1.73 sqM); Albumin 3.4 g/dL (3.5-5.0); Alkaline Phosphatase 48 U/L (38-126); Anion Gap 7 mmol/L; Blood Urea Nitrogen 20 mg/dL (7-17); Carbon Dioxide 34 mmol/L (22-30); Chloride 99 mmol/L (98-107); Glucose 285 mg/dL (74-99); Potassium 5.5 mmol/L (3.5-5.1); Sodium 140 mmol/L (137-145); Total Bilirubin 0.3 mg/dL (0.2-1.3); Total Protein 5.6 g/dL (6.3-8.2)
[2018-08-21 11:58] LABS: Glucose,Whole Blood 229 mg/dL (75-99)
--- NOTE | 2018-08-21 12:08 | XR ---
EXAMINATION TYPE: XR chest 2V DATE OF EXAM: 08/21/2018 COMPARISON: 08/19/2018 INDICATION: CHF TECHNIQUE: Frontal and lateral views of the chest are obtained. FINDINGS: The heart size is mildly prominent. The pulmonary vasculature is mildly prominent. No suspicious consolidations are evident. There is mild increased diffuse lung markings which could b e related to some mild pulmonary edema.. Clinical correlation recommended. IMPRESSION: 1. Clinical correlation recommended for mild CHF. Findings are slightly progressive from comparison.
--- NOTE | 2018-08-21 12:25 | PN ---
PROGRESS NOTE CHIEF COMPLAINT: Hypoglycemia, arrhythmia, and shortness of breath with heart failure. HISTORY OF PRESENT ILLNESS: This lady remains quite dyspneic, although she does feel a little bit better. She is diuresing slowly. Blood sugars are adequate. BNP is slightly elevated. Echocardiogram is pending. REVIEW OF SYSTEMS: She denies headaches, chest pain, abdominal pain, nausea, vomiting, etc. She is still very dyspneic. PHYSICAL EXAM: Vital signs are normal. Head, ears, eyes, nose, mouth, and throat are normal. Chest demonstrates rales and rhonchi bilaterally with expiratory wheezing and rhonchi. Cardiac exam is now sinus rhythm with a murmur. Abdomen is protuberant and soft. Extremities are unchanged. IMPRESSION: 1. Hypoglycemia. 2. Type 2 diabetes mellitus. 3. Bradycardia with idioventricular rhythm. 4. Obesity. 5. History of lymphoma of the larynx. 6. Reactive airway disease. 7. Acute congestive heart failure, probably diastolic. PLAN: 1. Updrafts. 2. Order physical therapy. 3. Repeat chest x-ray and labs. 4. Daily weights. 5. DVT prophylaxis with heparin. 6. Start Lasix orally. 7. Entresto b.i.d. 8. Aldactone 25 once a day. MMODL / IJN: [id number] /
--- NOTE | 2018-08-21 13:05 | P.PN ---
Subjective Progress Note Date: 08/21/18 This is a pleasant 78-year-old female with history of hypertension, diabetes, hyperlipidemia, sleep apnea, COPD, psoriasis, presented to the hospital with altered mental status. Her son called EMS, on arrival her blood sugar was checked which came back to be in the range of 40. Patient had taken her insulin but had not been eating enough at home because of decreased appetite. She denies any symptoms of abdominal discomfort, no chest discomfort or palpitations, denies any dizziness or lightheadedness. Chest x-ray showed cardiomegaly and mild pulmonary fibrosis. EKG on presentation here showed a significant sinus bradycardia with evidence of a junctional escape beats . Blood pressure on arrival 120/40 with a heart rate of 50, 99% on room air. White blood cell count 10.4, hemoglobin 10.7, platelet count 214, sodium 139, potassium 5.4, BUN 51 and creatinine 1.1. Glucose on arrival 32, magnesium 1.4, 2.3 this morning. Troponin 0.012. TSH 5.3 free T4 1.0. at the time of my exam ination this morning, patient is alert and oriented, symptom-free. This morning patient is in a normal sinus rhythm. 08/21: Patient complains of continued shortness of breath and lower extremity edema. She states she does not feel that the edema has improved She denies any chest pain. She states that she has been urinating with female catheter in place and this was emptied frequently yesterday and through the night. Daily weight today is not documented. She has been afebrile, heart rate 87, pulse ox 90% on 3 L nasal cannula, blood pressure 167/70. infrastructure developer overnight has been a heart rate in the 80s to low 100s. Sinus rhythm and sinus tachycardia. Bradycardia seems to have resolved. Gen: This is a 78-year-old morbidly obese female. She is sitting on the edge of the bed. No acute distress is noted. HEENT: Head is atraumatic, normocephalic. Pupils equal, round. Sclerae is anicteric. NECK: Supple. No JVD. No lymphadenopathy. No thyromegaly. LUNGS: Clear to auscultation. No intercostal retractions. HEART: Regular rate and rhythm. Systolic murmur. ABDOMEN: Soft. Bowel sounds are present. No masses. No tenderness. EXTREMITIES: 2+ pedal edema. No calf tenderness. Dorsalis pedis +2 bilaterally. Chronic skin changes noted to the lower extremities. NEUROLOGICAL: Patient is awake, alert and oriented x3. Cranial nerves 2 through 12 are grossly intact. Assessment: Sinus bradycardia with evidence of junctional escape beats, improved Hyperglycemia with associated mental status changes Hypertension Hyperlipidemia Diabetes mellitus type 2 Sleep apnea on CPAP Plan: Agree with Lasix transitioned to oral 40 mg twice daily Discontinue Entresto and spironolactone as they are contraindicated with hyperkalemia. Depending on repeat lab work, Aldactone may be resumed tomorrow. Start amlodipine 10 mg daily. Patient may require beta david to be resumed, we will continue to monitor. A follow-up on echocardiogram results TSH and free T4 Of further regimen patient's follow based upon clinical course. Nurse practitioner note has been reviewed, I agree with documented findings and plan of care. Patient was seen and examined. Objective - Vital Signs Vital signs: Vital Signs Temp 99.4 F 08/21/18 08:00 Pulse 87 08/21/18 08:00 Resp 20 08/21/18 08:00 BP 167/70 08/21/18 08:00 Pulse Ox 90 L 08/21/18 08:00 Intake & Output 08/20/18 08/21/18 08/21/18 18:59 06:59 18:59 Intake Total 720 240 Output Total 1500 500 Balance -780 -500 240 Intake: Oral 720 240 Output: Urine 1500 500 - Labs CBC & Chem 7: 08/21/18 11:01 08/21/18 11:01 Labs: Abnormal Lab Results - Last 24 Hours (Table) 08/20/18 08/20/18 08/20/18 Range/Units 11:32 16:21 20:46 POC Glucose (mg/dL) 209 H 151 H 137 H (75-99) mg/dL 08/21/18 Range/Units 06:17 POC Glucose (mg/dL) 109 H (75-99) mg/dL
[2018-08-21 13:09] LABS: T4, Free (Free Thyroxine) 0.87 ng/dL (0.78-2.19)
[2018-08-21] MEDS: HEPARIN SODIUM,PORCINE 5,000 UNIT/ML 1 ML VIAL SQ SCH (15:24)
[2018-08-21] MEDS: FUROSEMIDE 40 MG TAB PO SCH (15:24)
[2018-08-21 16:50] LABS: Glucose,Whole Blood 179 mg/dL (75-99)
[2018-08-21] MEDS: CARVEDILOL 6.25 MG TAB PO SCH (17:24)
[2018-08-21 20:35] LABS: Glucose,Whole Blood 163 mg/dL (75-99)
[2018-08-22] MEDS: HEPARIN SODIUM,PORCINE 5,000 UNIT/ML 1 ML VIAL SQ SCH ×4 (01:11→23:59)
[2018-08-22 05:41] LABS: Glucose,Whole Blood 181 mg/dL (75-99)
[2018-08-22] MEDS: CARVEDILOL 6.25 MG TAB PO SCH ×2 (06:26→17:31)
[2018-08-22] MEDS: LEVOTHYROXINE 100 MCG TAB PO SCH (06:26)
[2018-08-22 07:02] LABS: African American GFR (CKD) >90 (>60 ml/min/1.73 sqM); Anion Gap 8 mmol/L; Blood Urea Nitrogen 17 mg/dL (7-17); Carbon Dioxide 32 mmol/L (22-30); Chloride 99 mmol/L (98-107); Glucose 165 mg/dL (74-99); Sodium 139 mmol/L (137-145)
--- NOTE | 2018-08-22 08:11 | P.PN ---
Subjective Progress Note Date: 08/22/18 This is a pleasant 78-year-old female with history of hypertension, diabetes, hyperlipidemia, sleep apnea, COPD, psoriasis, presented to the hospital with altered mental status. Her son called EMS, on arrival her blood sugar was checked which came back to be in the range of 40. Patient had taken her insulin but had not been eating enough at home because of decreased appetite. She denies any symptoms of abdominal discomfort, no chest discomfort or palpitations, denies any dizziness or lightheadedness. Chest x-ray showed cardiomegaly and mild pulmonary fibrosis. EKG on presentation here showed a significant sinus bradycardia with evidence of a junctional escape beats . Blood pressure on arrival 120/40 with a heart rate of 50, 99% on room air. White blood cell count 10.4, hemoglobin 10.7, platelet count 214, sodium 139, potassium 5.4, BUN 51 and creatinine 1.1. Glucose on arrival 32, magnesium 1.4, 2.3 this morning. Troponin 0.012. TSH 5.3 free T4 1.0. at the time of my exam ination this morning, patient is alert and oriented, symptom-free. This morning patient is in a normal sinus rhythm. 08/21: Patient complains of continued shortness of breath and lower extremity edema. She states she does not feel that the edema has improved She denies any chest pain. She states that she has been urinating with female catheter in place and this was emptied frequently yesterday and through the night. Daily weight today is not documented. She has been afebrile, heart rate 87, pulse ox 90% on 3 L nasal cannula, blood pressure 167/70. threat monitoring analyst overnight has been a heart rate in the 80s to low 100s. Sinus rhythm and sinus tachycardia. Bradycardia seems to have resolved. 08/22: Patient continues to complain of shortness of breath with continued lower extremity edema. Patient is found sitting at the edge of the bed. She does not appear to be dyspneic at rest. Yesterday afternoon, blood pressure was up to 197/79 despite use of amlodipine and Coreg 6.125 mg twice daily was added. Blood pressure this morning is still elevated at 156/89, heart rate in the 70s, playground monitor has been a sinus rhythm in the 80s and 90s overnight. Amlodipine will be discontinued and patient started on Procardia XL 90 mg daily. Pulse ox 96% on 4 L. Patient's baseline is 3 L at home. Patient is finding the bed and recliner very uncomfortable for her back and knees and is anxious to be discharged home. Chest x-ray from yesterday reveals mild CHF. Finding slightly progressive from comparison. Daughter relates that patient seems to have more shortness of breath when using the CPAP and states that the mask is loose on her face. Advised that this needs to be evaluated and new mask most likely provided by [place]. No hypoxic episodes were noted at nighttime. Repeat lab work reveals sodium 139, potassium not reported as specimen hemolyzed, chloride 99, CO2 32, BUN 17 creatinine 0.59. TSH 4.860, free T4 0.87, cortisol level 31. Gen: This is a 78-year-old morbidly obese female. She is sitting on the edge of the bed. No acute distress is noted. daughter is at bedside. HEENT: Head is atraumatic, normocephalic. Pupils equal, round. Sclerae is anicteric. NECK: Supple. No JVD. No lymphadenopathy. No thyromegaly. LUNGS: Fine crackles to the bilateral bases. No intercostal retractions. HEART: Regular rate and rhythm. Systolic murmur. ABDOMEN: Soft. Bowel sounds are present. No masses. No tenderness. EXTREMITIES: 2+ pedal edema. No calf tenderness. Dorsalis pedis +2 bilaterally. Chronic skin changes noted to the lower extremities. NEUROLOGICAL: Patient is awake, alert and oriented x3. Cranial nerves 2 through 12 are grossly intact. Assessment: Sinus bradycardia with evidence of junctional escape beats, improved Hyperglycemia with associated mental status changes Hypertension Hyperlipidemia Diabetes mellitus type 2 Sleep apnea on CPAP Plan: Continue Lasix oral 40 mg twice daily Discontinue Entresto and spironolactone as they are contraindicated with hyperkalemia. Depending on repeat lab work, Aldactone may be resumed tomorrow. Discontinue amlodipine 10 mg daily. Continue Coreg 6.25 mg twice daily as started yesterday afternoon, and start Procardia XL 90 mg daily. Follow-up on echocardiogram results TSH and free T4 abnormal, primary to address. Further recommendations to follow based upon clinical course. Nurse practitioner note has been reviewed, I agree with documented findings and plan of care. Patient was seen and examined. Objective - Vital Signs Vital signs: Vital Signs Temp 98.4 F 08/22/18 04:00 Pulse 86 08/22/18 04:00 Resp 20 08/22/18 04:00 BP 156/89 08/22/18 04:00 Pulse Ox 96 08/22/18 04:00 Intake & Output 08/21/18 08/22/18 08/22/18 18:59 06:59 18:59 Intake Total 830 Output Total 1001 Balance 830 -1001 Intake: IV 60 Sodium Chloride 0.9% 1, 60 000 ml @ 50 mls/hr IV . Q20H [facility] Rx#:[id number] Intake, IV Titration 50 Amount cefTRIAXone 1 gm In 50 Sodium Chloride 0.9% 50 ml @ 100 mls/hr IVPB Q24HR [facility] Rx#:[id number] Oral 720 Output: Urine 1001 Other: Voiding Method Bedside Commode - Labs CBC & Chem 7: 08/21/18 11:01 08/22/18 05:30 Labs: Abnormal Lab Results - Last 24 Hours (Table) 08/21/18 08/21/18 08/21/18 Range/Units 11:01 11:01 11:57 RBC 3.62 L (3.80-5.40) m/uL Hgb 10.2 L (11.4-16.0) gm/dL MCHC 29.9 L (31.0-37.0) g/dL RDW 16.0 H (11.5-15.5) % Potassium 5.5 H (3.5-5.1) mmol/L Carbon Dioxide 34 H (22-30) mmol/L BUN 20 H (7-17) mg/dL Glucose 285 H (74-99) mg/dL POC Glucose (mg/dL) 229 H (75-99) mg/dL Total Protein 5.6 L (6.3-8.2) g/dL Albumin 3.4 L (3.5-5.0) g/dL TSH 4.860 H (0.465-4.680) mIU/L 08/21/18 08/21/18 08/22/18 Range/Units 16:49 20:34 05:30 RBC (3.80-5.40) m/uL Hgb (11.4-16.0) gm/dL MCHC (31.0-37.0) g/dL RDW (11.5-15.5) % Potassium (3.5-5.1) mmol/L Carbon Dioxide 32 H (22-30) mmol/L BUN (7-17) mg/dL Glucose 165 H (74-99) mg/dL POC Glucose (mg/dL) 179 H 163 H (75-99) mg/dL Total Protein (6.3-8.2) g/dL Albumin (3.5-5.0) g/dL TSH (0.465-4.680) mIU/L 08/22/18 Range/Units 05:40 RBC (3.80-5.40) m/uL Hgb (11.4-16.0) gm/dL MCHC (31.0-37.0) g/dL RDW (11.5-15.5) % Potassium (3.5-5.1) mmol/L Carbon Dioxide (22-30) mmol/L BUN (7-17) mg/dL Glucose (74-99) mg/dL POC Glucose (mg/dL) 181 H (75-99) mg/dL Total Protein (6.3-8.2) g/dL Albumin (3.5-5.0) g/dL TSH (0.465-4.680) mIU/L
[2018-08-22] MEDS: PANTOPRAZOLE 40 MG TABLET PO SCH ×2 (08:18→20:53)
[2018-08-22] MEDS: FUROSEMIDE 40 MG TAB PO SCH ×2 (08:18→16:44)
[2018-08-22] MEDS: ALLOPURINOL 300 MG TAB PO SCH (08:18)
[2018-08-22] MEDS: ACETAMINOPHEN TAB 325 MG TAB PO PRN ×2 (08:18→20:53)
[2018-08-22] MEDS: metFORMIN 850 MG TAB PO SCH ×3 (08:18→20:52)
[2018-08-22] MEDS: NIFEdipine XL 90 MG TAB.ER.24 PO SCH (08:18)
[2018-08-22] MEDS: GABAPENTIN 400 MG CAP PO SCH ×4 (08:18→20:53)
[2018-08-22] MEDS: ALBUTEROL NEBULIZED 2.5 MG/3 ML INHALATION SCH ×4 (09:50→20:35)
[2018-08-22 12:15] LABS: Glucose,Whole Blood 165 mg/dL (75-99)
[2018-08-22 17:15] LABS: Glucose,Whole Blood 178 mg/dL (75-99)
[2018-08-22 20:08] LABS: Glucose,Whole Blood 214 mg/dL (75-99)
[2018-08-23] MEDS: ALBUTEROL NEBULIZED 2.5 MG/3 ML INHALATION PRN (02:33)
[2018-08-23 06:06] LABS: Glucose,Whole Blood 181 mg/dL (75-99)
[2018-08-23] MEDS: CARVEDILOL 6.25 MG TAB PO SCH ×2 (06:08→17:24)
[2018-08-23] MEDS: LEVOTHYROXINE 100 MCG TAB PO SCH (06:08)
[2018-08-23] MEDS: ALBUTEROL NEBULIZED 2.5 MG/3 ML INHALATION SCH ×4 (08:42→19:41)
[2018-08-23] MEDS: HEPARIN SODIUM,PORCINE 5,000 UNIT/ML 1 ML VIAL SQ SCH ×2 (09:26→16:14)
[2018-08-23] MEDS: GABAPENTIN 400 MG CAP PO SCH ×4 (09:26→21:03)
[2018-08-23] MEDS: FUROSEMIDE 40 MG TAB PO SCH ×2 (09:26→16:14)
[2018-08-23] MEDS: metFORMIN 850 MG TAB PO SCH ×3 (09:26→21:03)
[2018-08-23] MEDS: ALLOPURINOL 300 MG TAB PO SCH (09:26)
[2018-08-23] MEDS: PANTOPRAZOLE 40 MG TABLET PO SCH ×2 (09:26→21:03)
[2018-08-23] MEDS: NIFEdipine XL 90 MG TAB.ER.24 PO SCH (09:26)
--- NOTE | 2018-08-23 09:55 | ECHOF ---
Referral Reason:heart block MEASUREMENTS -------- HEIGHT: 129.5 cm WEIGHT: 120.2 kg BP: RVIDd: 3.7 cm (< 3.3) IVSd: 1.2 cm (0.6 - 1.1) LVIDd: 4.8 cm (3.9 - 5.3) LVPWd: 1.4 cm (0.6 - 1.1) IVSs: 1.5 cm LVIDs: 2.3 cm LVPWs: 1.5 cm LAESV Index (A-L): 38.40 ml/m Ao Diam: 2.6 cm (2.0 - 3.7) AV Cusp: 1.4 cm (1.5 - 2.6) LA Diam: 3.7 cm (2.7 - 3.8) MV EXCURSION: 23.080 mm (> 18.000) MV EF SLOPE: 97 mm/s (70 - 150) EPSS: 0.8 cm MV E Agusto: 0.97 m/s MV DecT: 159 ms MV A Agusto: 0.97 m/s MV E/A Ratio: 1.00 AV maxP.37 mmHg AV meanP.48 mmHg RAP: 5.00 mmHg RVSP: 55.73 mmHg FINDINGS -------- Sinus rhythm. This was a technically adequate study. The left ventricular size is normal. There is mild concentric left ventricular hypertrophy. Overa ll left ventricular systolic function is normal with, an EF between 55 - 60 %. Increased LAP Grade 2 Diastolic Dysfunction. The right ventricle is mildly enlarged. LA is moderately dilated 34-39 ml/m2 The right atrial size is normal. Aortic valve is trileaflet and is moderately thickened. There is moderate aortic stenosis present. Peak/mean gradient across the Aortic Valve is 44.37mmHg / 21.48mmHg. The mitral valve is normal. The mitral valve leaflets are mildly thickened. Mild mitral regurgita tion is present. The tricuspid valve appears structurally normal. Mild tricuspid regurgitation present. There is m oderate pulmonary hypertension. The right ventricular systolic pressure, as measured by Doppler, is 55.73mmHg. There is no pulmonic regurgitation present. The aortic root size is normal. Normal inferior vena cava with normal inspiratory collapse consistent with estimated right atrial pre ssure of 5 mmHg. There is no pericardial effusion. CONCLUSIONS -------- 1. Sinus rhythm. 2. This was a technically adequate study. 3. The left ventricular size is normal. 4. There is mild concentric left ventricular hypertrophy. 5. Overall left ventricular systolic function is normal with, an EF between 55 - 60 %. 6. Increased LAP Grade 2 Diastolic Dysfunction. 7. The right ventricle is mildly enlarged. 8. LA is moderately dilated 34-39 ml/m2 9. The right atrial size is normal. 10. Aortic valve is trileaflet and is moderately thickened. 11. There is moderate aortic stenosis present. 12. Peak/mean gradient across the Aortic Valve is 44.37mmHg / 21.48mmHg. 13. The mitral valve is normal. 14. The mitral valve leaflets are mildly thickened. 15. Mild mitral regurgitation is present. 16. The tricuspid valve appears structurally normal. 17. Mild tricuspid regurgitation present. 18. There is moderate pulmonary hypertension. 19. The right ventricular systolic pressure, as measured by Doppler, is 55.73mmHg. 20. There is no pulmonic regurgitation present. 21. The aortic root size is normal. 22. Normal inferior vena cava with normal inspiratory collapse consistent with estimated right atrial pressure of 5 mmHg. 23. There is no pericardial effusion. MEDICAL TECHNOLOGIST: Renata Escamilla RDCS
[2018-08-23 12:03] LABS: Glucose,Whole Blood 195 mg/dL (75-99)
--- NOTE | 2018-08-23 14:28 | CDI ---
Documentation Clarification Form Date: 08/23/2018 2:06:48 PM From: Amaya Barahona RN, CCDS Phone: [phone] Admit Date: 08/19/2018 7:04:00 PM Patient Name: Sierra Marquez Visit Number: [id number] Discharge Date: ATTENTION: The Clinical Documentation Specialists (CDI) and [facility] Coding Staff appreciate your assistance in clarifying documentation. Please respond to the clarification below the line at the bottom and electronically sign. The CDI & [facility] Coding staff will review the response and follow-up if needed. Please note: Queries are made part of the Legal Health Record. If you have any questions, please contact the author of this message via ITS. Dr. Aguilar Hays Altered Mental Status was documented in the ED and Cardiology evaluation and further clarification is needed. History/Risk Factors: Heart Failure, COPD, Diabetes Mellitus, Hypertension, Clinical Indicators: 78-year-old female who present to ED because she was altered mentally. Her blood glucose was found by EMS to be 41. Patient does admit to not eating enough because she has lost her appetite recently. Vital signs on admission 122/44 52 16 97.4 99 % RA EKG shows a third-degree block with a junctional rhythm at 53 bpm Labs: Glucose 32, 66, 102, 107, 137, 101 Treatment: Monitor BS Glucophage PO In your professional opinion, please clarify the etiology of the Altered Mental Status, if known. Metabolic Encephalopathy due to Hypoglycemia Other condition (please specify) Unable to determine (Last Revision: May 2017) MTDD
--- NOTE | 2018-08-23 15:21 | P.PN ---
Subjective 78-year-old female presenting with altered mental status and low blood sugar. However she was also bradycardic at that time with junctional escape beats secondary to sick sinus syndrome blood pressure is normal TSH 5.3, dose of Synthroid increased. Beta blockers and verapamil were discontinued Started on carvedilol 6.25 mg twice daily, Lasix 40 mg by mouth twice a day and nifedipine 90 mg by mouth daily long-acting 147/62 mmHg Breath sounds are clear no rhonchi no crackles but she is not short of breath now. Pulse rate in the 80s Heart sounds are normal is a ejection systolic murmur is audible Abdomen soft Extremity is warm Hemoglobin 10.2, platelet count 227,000 Sodium 139 potassium 4.9 BUN 17 and creatinine 0.59 Impression Altered mental status secondary to hypoglycemia She was also bradycardic on beta blockers and Central blockers Metoprolol and verapamil was stopped. Procardia plus carvedilol was used She has a resting comfortably in bed today. She does not appear short of breath she has no chest discomfort dizziness or lightheadedness 2-D echo and Doppler study shows mild left ventricular hypertrophy with preserved LV systolic function 55-60% RV is mildly enlarged Moderate aortic stenosis. Gradient 40 Marcus and his mercury mean gradient 21 mmHg Suggest Watch blood pressure and if needed the dose of Procardia may be increased 120 mg by mouth daily Continue monitoring on telemetry for bradycardia Follow Dr. Licona as an outpatient Patient go home from a cardiac standpoint for the next 24-48 hours Objective - Vital Signs Vital signs: Vital Signs Temp 98.6 F 08/23/18 07:40 Pulse 82 08/23/18 15:16 Resp 18 08/23/18 11:48 BP 151/63 08/23/18 11:48 Pulse Ox 93 L 08/23/18 11:48 Intake & Output 08/22/18 08/23/18 08/23/18 18:59 06:59 18:59 Intake Total 240 240 480 Output Total 200 1700 500 Balance 40 -1460 -20 Weight 125.5 kg Intake: Oral 240 240 480 Output: Urine 200 1700 500 Other: Voiding Method Incontinent Incontinent - Labs CBC & Chem 7: 08/21/18 11:01 08/22/18 16:39 Labs: Abnormal Lab Results - Last 24 Hours (Table) 08/22/18 08/22/18 08/23/18 Range/Units 17:14 20:06 06:05 POC Glucose (mg/dL) 178 H 214 H 181 H (75-99) mg/dL 08/23/18 Range/Units 12:00 POC Glucose (mg/dL) 195 H (75-99) mg/dL
--- NOTE | 2018-08-23 16:20 | PN ---
PROGRESS NOTE DATE OF SERVICE: 08/22/2018 CHIEF COMPLAINT: Persistent shortness of breath. HISTORY OF PRESENT ILLNESS: This lady is still having a lot of difficulty with dyspnea. She has had no pain. She has had no fever, chills, hemoptysis, etc. We are still waiting on the echocardiogram report. PHYSICAL EXAMINATION: Breath sounds are very poor throughout. She has poor inspiratory effort. There are scattered rales throughout and occasional rhonchi. Cardiac exam is unchanged. Her heart rate is in the 60s and 70s. The abdomen is very protuberant, soft and nontender. Extremities are normal. IMPRESSION: 1. Hypoglycemia. 2. ventricular rhythm with bradycardia. 3. Congestive heart failure. 4. Morbid obesity. PLAN: 1. Await results of echocardiogram. 2. Continue efforts to try to increase her activity. REGGIEL / YUMIKON: [id number] /
[2018-08-23 17:04] LABS: Glucose,Whole Blood 184 mg/dL (75-99)
--- NOTE | 2018-08-23 18:26 | PN ---
PROGRESS NOTE CHIEF COMPLAINT: Persistent shortness of breath. HISTORY OF PRESENT ILLNESS: This lady has continued to feel extremely dyspneic. She apparently had acute difficulty breathing during the night. She denies any cough, hemoptysis, pleuritic chest pain, palpitations, etc. PHYSICAL EXAMINATION: Her vital signs are normal. Pulse is good. She is afebrile. On exam, she has extremely poor breath sounds throughout on both sides with extensive rales, rhonchi and prolonged expiratory phase with wheezing. Cardiac exam is unremarkable. The abdomen is protuberant, soft, nontender. She is very inactive. IMPRESSION: 1. Hypoglycemia. 2. Bradycardia with idioventricular rhythm. 3. Morbid obesity. 4. Congestive heart failure. PLAN: Continue efforts to try to improve her respiratory function while considering whether she will be able to go back home or not after this hospitalization. MICHI / ELENA: [id number] /
[2018-08-23 20:37] LABS: Glucose,Whole Blood 218 mg/dL (75-99)
[2018-08-23] MEDS: ACETAMINOPHEN TAB 325 MG TAB PO PRN (21:03)
[2018-08-24] MEDS: HEPARIN SODIUM,PORCINE 5,000 UNIT/ML 1 ML VIAL SQ SCH ×4 (01:13→23:05)
[2018-08-24 05:55] LABS: Glucose,Whole Blood 158 mg/dL (75-99)
[2018-08-24] MEDS: LEVOTHYROXINE 100 MCG TAB PO SCH (06:09)
[2018-08-24] MEDS: CARVEDILOL 6.25 MG TAB PO SCH ×2 (06:10→17:10)
[2018-08-24] MEDS: ALBUTEROL NEBULIZED 2.5 MG/3 ML INHALATION SCH ×4 (08:45→21:46)
[2018-08-24] MEDS: GABAPENTIN 400 MG CAP PO SCH ×4 (09:02→21:49)
[2018-08-24] MEDS: PANTOPRAZOLE 40 MG TABLET PO SCH ×2 (09:02→21:49)
[2018-08-24] MEDS: NIFEdipine XL 90 MG TAB.ER.24 PO SCH (09:02)
[2018-08-24] MEDS: ALLOPURINOL 300 MG TAB PO SCH (09:02)
[2018-08-24] MEDS: FUROSEMIDE 40 MG TAB PO SCH ×2 (09:03→16:42)
[2018-08-24] MEDS: metFORMIN 850 MG TAB PO SCH ×3 (09:03→21:49)
--- NOTE | 2018-08-24 10:59 | CDI ---
Documentation Clarification Form Date: 08/24/2018 10:33:51 AM From: Amaya Barahona RN, CCDS Admit Date: 08/19/2018 7:04:00 PM Patient Name: Sierra Marquez Visit Number: [id number] Discharge Date: ATTENTION: The Clinical Documentation Specialists (CDI) and [facility] Coding Staff appreciate your assistance in clarifying documentation. Please respond to the clarification below the line at the bottom and electronically sign. The CDI & [facility] Coding staff will review the response and follow-up if needed. Please note: Queries are made part of the Legal Health Record. If you have any questions, please contact the author of this message via ITS. Dr. Aguilar Hays The patient presented with the following respiratory symptoms: extremely dyspnea and difficulty breathing. History/Risk Factors: Morbid obesity, Congestive heart failure diastolic, COPD, Diabetes Mellitus, Hypertension, Sleep Apnea/CPAP/BIBAP, Former smoker Clinical Indicators: 78-year-old female who presents with hypoglycemia. On 08/21/18 Patient complains of continued shortness of breath and lower extremity edema, pulse ox 90 % on 3/L nasal cannula, blood pressure 167/70. She had 2+ pedal edema. Chest demonstrates extensive rales and rhonchi throughout with inspiratory and expiratory wheezing and prolonged expiratory phase. Pulse ox: 84 % 5/L NC, 93 % 4/L NC, 92 % 3/L NC HR 103 Chest x-ray: : Clinical correlation recommended for mild CHF. Treatment: IV Lasix (change to po) Breathing tx: Ventolin Nebulized Monitor O2 Sat's In your professional opinion, can you please clarify if these findings signify one of the following conditions? Acute Hypoxic Respiratory Failure Acute Hypercapnia Respiratory Failure Other Diagnosis, please specify Unable to determine (Last Revision: May 2017) MTDD
[2018-08-24 12:17] LABS: Glucose,Whole Blood 175 mg/dL (75-99)
--- NOTE | 2018-08-24 12:57 | PN ---
PROGRESS NOTE CHIEF COMPLAINT: Hypoglycemia and arrhythmia. HISTORY OF PRESENT ILLNESS: This lady is doing much better. Shortness of breath is improved. She is increasing her activity. REVIEW OF SYSTEMS: She has had no chest pain, fever, chills, etc. She has had no nausea, vomiting. She has been having some cramps in the lower extremities. Echocardiogram is back and demonstrates aortic stenosis with diastolic dysfunction, but a good ejection fraction. PHYSICAL EXAM: Chest is improved. There are fewer rales and rhonchi. Breath sounds are greatly improved posteriorly. Cardiac exam is unchanged. Abdomen is soft, nontender. IMPRESSION: 1. Hypoglycemia. 2. Type 2 diabetes. 3. Bradycardia with idioventricular rhythm-resolved. 4. Diastolic heart failure. 5. Aortic stenosis. 6. Obesity. PLAN: Continue to progress her activity and discharge once she is less short of breath and more ambulatory. MICHI / ELENA: [id number] /
--- NOTE | 2018-08-24 14:41 | P.PN ---
Subjective Progress Note Date: 08/24/18 This is a pleasant 78-year-old female with history of hypertension, diabetes, hyperlipidemia, sleep apnea, COPD, psoriasis, presented to the hospital with altered mental status. Her son called EMS, on arrival her blood sugar was checked which came back to be in the range of 40. Patient had taken her insulin but had not been eating enough at home because of decreased appetite. She denies any symptoms of abdominal discomfort, no chest discomfort or palpitations, denies any dizziness or lightheadedness. Chest x-ray showed cardiomegaly and mild pulmonary fibrosis. EKG on presentation here showed a significant sinus bradycardia with evidence of a junctional escape beats . Blood pressure on arrival 120/40 with a heart rate of 50, 99% on room air. White blood cell count 10.4, hemoglobin 10.7, platelet count 214, sodium 139, potassium 5.4, BUN 51 and creatinine 1.1. Glucose on arrival 32, magnesium 1.4, 2.3 this morning. Troponin 0.012. TSH 5.3 free T4 1.0. at the time of my exam ination this morning, patient is alert and oriented, symptom-free. This morning patient is in a normal sinus rhythm. 08/24/2018 Patient was seen and examined this morning, overall doing well. Blood pressure 140/60 with a heart rate in the 80s. Objective - Vital Signs Vital signs: Vital Signs Temp 98.3 F 08/24/18 11:13 Pulse 86 08/24/18 12:45 Resp 20 08/24/18 11:13 BP 178/65 08/24/18 11:13 Pulse Ox 93 L 08/24/18 11:13 Intake & Output 08/23/18 08/24/18 08/24/18 18:59 06:59 18:59 Intake Total 702 290 Output Total 500 250 600 Balance 202 -250 -310 Weight 120.5 kg Intake: Intake, IV Titration 50 Amount cefTRIAXone 1 gm In 50 Sodium Chloride 0.9% 50 ml @ 100 mls/hr IVPB Q24HR [facility] Rx#:[id number] Oral 702 240 Output: Urine 500 250 600 Other: Voiding Method Incontinent # Voids 1 # Bowel Movements 1 - Exam PHYSICAL EXAMINATION: GENERAL: This is a 78-year-old female in no acute distress at the time of my examination HEENT: Head is atraumatic, normocephalic. Pupils equal, round. Sclera anicteric. Conjunctiva are clear. Mucous membranes of the mouth are moist. Neck is supple. There is no elevated jugular venous pressure.No carotid bruit is heard. HEART EXAMINATION: Heart S1, S2 soft systolic murmur is heard . CHEST EXAMINATION: Lungs are clear to auscultation and precussion. No chest wall tenderness is noted on palpation or with deep breathing. ABDOMEN: Soft, obese, nontender. Bowel sounds are heard. No organomegaly noted. EXTREMITIES: 2+ peripheral pulses with evidence of peripheral edema and no calf tenderness noted. NEUROLOGIC patient is awake, alert and oriented 3 . - Labs CBC & Chem 7: 08/21/18 11:01 08/22/18 16:39 Labs: Abnormal Lab Results - Last 24 Hours (Table) 08/23/18 08/23/18 08/24/18 Range/Units 16:58 20:36 05:54 POC Glucose (mg/dL) 184 H 218 H 158 H (75-99) mg/dL 08/24/18 Range/Units 12:12 POC Glucose (mg/dL) 175 H (75-99) mg/dL Assessment and Plan Plan: Assessment and plan #1 hyperglycemia with associated mental status changes #2 severe sinus bradycardia with evidence of a junctional escape beats #3 hypothyroidism #4 hypertension #5 hyperlipidemia #6 diabetes #7 sleep apnea #8 COPD #9 GERD #10 hypomagnesemia Plan Cardiology's perspective, we'll recommend to continue the patient on current medications. She may be able to be discharged home once cleared by primary, we will make a follow-up appointment in the office post discharge. DNP note has been reviewed, I agree with a documented findings and plan of care. Patient was seen and examined.
[2018-08-24 17:29] LABS: Glucose,Whole Blood 169 mg/dL (75-99)
[2018-08-24 21:43] LABS: Glucose,Whole Blood 184 mg/dL (75-99)
[2018-08-24] MEDS: ACETAMINOPHEN TAB 325 MG TAB PO PRN (21:50)
[2018-08-25] MEDS: LEVOTHYROXINE 100 MCG TAB PO SCH (06:59)
[2018-08-25] MEDS: CARVEDILOL 6.25 MG TAB PO SCH (06:59)
[2018-08-25 07:17] LABS: Glucose,Whole Blood 165 mg/dL (75-99)
[2018-08-25] MEDS: ALBUTEROL NEBULIZED 2.5 MG/3 ML INHALATION SCH ×2 (07:55→11:36)
[2018-08-25 09:31] VITALS: RESP 16; TEMP 98.2
[2018-08-25] MEDS: FUROSEMIDE 40 MG TAB PO SCH (09:40)
[2018-08-25] MEDS: GABAPENTIN 400 MG CAP PO SCH ×2 (09:40→13:08)
[2018-08-25] MEDS: HEPARIN SODIUM,PORCINE 5,000 UNIT/ML 1 ML VIAL SQ SCH (09:40)
[2018-08-25] MEDS: PANTOPRAZOLE 40 MG TABLET PO SCH (09:40)
[2018-08-25] MEDS: NIFEdipine XL 90 MG TAB.ER.24 PO SCH (09:40)
[2018-08-25] MEDS: metFORMIN 850 MG TAB PO SCH (09:41)
[2018-08-25] MEDS: ALLOPURINOL 300 MG TAB PO SCH (09:41)
[2018-08-25] MEDS: ACETAMINOPHEN TAB 325 MG TAB PO PRN (09:45)
[2018-08-25 11:33] VITALS: BMI 53.8
[2018-08-25 12:01] LABS: Glucose,Whole Blood 208 mg/dL (75-99)
[2018-08-25 12:29] VITALS: BP 167/75; PULSE 80
--- NOTE | 2018-08-25 14:47 | P.PN ---
Subjective Progress Note Date: 08/25/18 This is a pleasant 78-year-old female with history of hypertension, diabetes, hyperlipidemia, sleep apnea, COPD, psoriasis, presented to the hospital with altered mental status. Her son called EMS, on arrival her blood sugar was checked which came back to be in the range of 40. Patient had taken her insulin but had not been eating enough at home because of decreased appetite. She denies any symptoms of abdominal discomfort, no chest discomfort or palpitations, denies any dizziness or lightheadedness. Chest x-ray showed cardiomegaly and mild pulmonary fibrosis. EKG on presentation here showed a significant sinus bradycardia with evidence of a junctional escape beats . Blood pressure on arrival 120/40 with a heart rate of 50, 99% on room air. White blood cell count 10.4, hemoglobin 10.7, platelet count 214, sodium 139, potassium 5.4, BUN 51 and creatinine 1.1. Glucose on arrival 32, magnesium 1.4, 2.3 this morning. Troponin 0.012. TSH 5.3 free T4 1.0. at the time of my exam ination this morning, patient is alert and oriented, symptom-free. This morning patient is in a normal sinus rhythm. 08/24/2018 Patient was seen and examined this morning, overall doing well. Blood pressure 140/60 with a heart rate in the 80s. 08/25/2018 Patient seen and examined this morning, hemodynamically stable. Cleared for discharge. Objective - Vital Signs Vital signs: Vital Signs Temp 98.2 F 08/25/18 08:25 Pulse 80 08/25/18 12:05 Resp 16 08/25/18 12:05 BP 167/75 08/25/18 12:05 Pulse Ox 97 08/25/18 12:05 Intake & Output 08/24/18 08/25/18 08/25/18 18:59 06:59 18:59 Intake Total 512 360 Output Total 600 900 Balance -88 -540 Weight 121 kg 121 kg Intake: Intake, IV Titration 50 Amount cefTRIAXone 1 gm In 50 Sodium Chloride 0.9% 50 ml @ 100 mls/hr IVPB Q24HR [facility] Rx#:[id number] Oral 462 360 Output: Urine 600 900 Other: Voiding Method Incontinent Incontinent # Voids 1 # Bowel Movements 1 - Exam PHYSICAL EXAMINATION: GENERAL: This is a 78-year-old female in no acute distress at the time of my examination HEENT: Head is atraumatic, normocephalic. Pupils equal, round. Sclera anicteric. Conjunctiva are clear. Mucous membranes of the mouth are moist. Neck is supple. There is no elevated jugular venous pressure.No carotid bruit is heard. HEART EXAMINATION: Heart S1, S2 soft systolic murmur is heard . CHEST EXAMINATION: Lungs are clear to auscultation and precussion. No chest wall tenderness is noted on palpation or with deep breathing. ABDOMEN: Soft, obese, nontender. Bowel sounds are heard. No organomegaly noted. EXTREMITIES: 2+ peripheral pulses with evidence of peripheral edema and no calf tenderness noted. NEUROLOGIC patient is awake, alert and oriented 3 . - Labs CBC & Chem 7: 08/21/18 11:01 08/22/18 16:39 Labs: Abnormal Lab Results - Last 24 Hours (Table) 08/24/18 08/24/18 08/25/18 Range/Units 17:23 21:41 06:50 POC Glucose (mg/dL) 169 H 184 H 165 H (75-99) mg/dL 08/25/18 Range/Units 11:56 POC Glucose (mg/dL) 208 H (75-99) mg/dL Assessment and Plan Plan: Assessment and plan #1 hyperglycemia with associated mental status changes #2 severe sinus bradycardia with evidence of a junctional escape beats #3 hypothyroidism #4 hypertension #5 hyperlipidemia #6 diabetes #7 sleep apnea #8 COPD #9 GERD #10 hypomagnesemia Plan Cardiology's perspective, we'll recommend to continue the patient on current medications. She may be able to be discharged home once cleared by primary, we will make a follow-up appointment in the office post discharge. DNP note has been reviewed, I agree with a documented findings and plan of care. Patient was seen and examined.
--- NOTE | 2018-08-26 05:38 | DS ---
DISCHARGE SUMMARY CHIEF COMPLAINT: Hypoglycemia, idioventricular rhythm with bradycardia. HISTORY OF PRESENT ILLNESS AND PHYSICAL EXAM: The details of this lady's history and physical can be found in the initial workup. LABORATORY STUDIES: While she was in a hospital she had laboratory studies, details of which can be found in the laboratory section of her chart. COURSE IN HOSPITAL: After admission, she was placed on bedrest, started on intravenous fluids. Her hypoglycemia was corrected and she reverted to normal sinus rhythm with a normal pulse rate. She continued to have difficulty with shortness of breath, which was thought more to be due to congestive heart failure than anything else. This steadily was managed and breathing improved and she started to move about and doing much better and it was felt that she could go home on . She will go home on her usual diet and activity. She will be sent home without any medications for her blood sugar at this time. She will be set up with home nursing and we will see her in several days in the office. FINAL DIAGNOSES: 1. Hypoglycemia, iatrogenic. 2. Idioventricular rhythm with bradycardia. 3. Congestive heart failure. 4. Obesity. OPERATIONS: None. CONSULTATION: Cardiology. She is improved. MMODL / IJN: [id number] /
--- NOTE | 2018-08-26 07:24 | MISC ---
MISCELLANOUS REPORT QUERY Altered mental status. Other condition would be hypoglycemia. Could be acute hypoxic respiratory failure. MMODL / IJN: [id number] /
== END 2018-08-25 14:08 | disposition home or self-care (01) | DRG 637 ==
LOC: EC 14:53 → 3SCARD 19:04
PROVIDERS: ADMIT Family Medicine; ATTEND Family Medicine
DX: E11.649 Type 2 diabetes mellitus with hypoglycemia without coma (principal); I50.31 Acute diastolic (congestive) heart failure; J96.01 Acute respiratory failure with hypoxia; I44.2 Atrioventricular block, complete; N39.0 Urinary tract infection, site not specified; Z68.43 Body mass index [BMI] 50.0-59.9, adult; I11.0 Hypertensive heart disease with heart failure; E66.01 Morbid (severe) obesity due to excess calories; I49.5 Sick sinus syndrome; R00.1 Bradycardia, unspecified; E03.9 Hypothyroidism, unspecified; E78.5 Hyperlipidemia, unspecified; E83.42 Hypomagnesemia; G47.33 Obstructive sleep apnea (adult) (pediatric); I35.0 Nonrheumatic aortic (valve) stenosis; J44.9 Chronic obstructive pulmonary disease, unspecified; J84.10 Pulmonary fibrosis, unspecified; K21.9 Gastro-esophageal reflux disease without esophagitis; L40.9 Psoriasis, unspecified; M19.90 Unspecified osteoarthritis, unspecified site; Z79.4 Long term (current) use of insulin; Z79.890 Hormone replacement therapy; Z79.899 Other long term (current) drug therapy; Z85.72 Personal history of non-Hodgkin lymphomas; Z87.891 Personal history of nicotine dependence; Z88.0 Allergy status to penicillin; Z88.2 Allergy status to sulfonamides; Z88.8 Allergy status to other drugs, medicaments and biological substances; Z98.51 Tubal ligation status; Z83.6 Family history of other diseases of the respiratory system
CPT/HCPCS: 36415; 71046; 80048; 80053; 80306; 81001; 82533; 83036; 83735; 83880; 84132; 84439; 84443; 84484; 85025; 85610; 85730; 93005; 93306; 94640; 94760; 96374; 96375; 99291

== ENCOUNTER 2019-12-22 08:08 | Emergency (ER) | payer MEDICARE ==
--- NOTE | 2019-12-22 09:27 | CT ---
EXAMINATION TYPE: CT lumbar spine wo con DATE OF EXAM: 12/22/2019 9:19 AM COMPARISON: PET CT May 21, 2018. Prior whole-body CT March 06, 2017 HISTORY: Back pain. History of lymphoma. CT DLP: 1957.6 mGycm Automated exposure control for dose reduction was used. Unenhanced CT of the lumbar spine was performed. Bone and soft tissue window settings are submitted as well as coronal and sagittal reconstructions. There are 5 lumbar-type vertebra. Dextroconvex scoliosis centered at L3 level. There is slight grade 1 retrolisthesis L2 on L3 and L3 on L4. There is slight grade 1 anterolisthesis L5 on S1. Vertebral b tristan heights are maintained. Moderate to advanced disc space narrowing with vacuum disc phenomenon summer ng with endplate sclerosis and moderate to severe spurring seen left L3-L4 level. Mild disc space loida rowing posterior L5-S1 level. Multilevel vacuum disc phenomenon near the thoracolumbar junction. Mild -to-moderate multilevel anterior and lateral spurring. More moderate spurring in the lower thoracic s pine. No acute fracture or dislocation seen. Axial images at T12-L1 level show posterior bony projection or spur effacing the anterior thecal sac correlating with sagittal image 31. Patent bilateral neural foramina. Axial images at L1-L2 and L2-L3 levels are within normal limits. Axial images at L3-L4 level show spondylolisthesis with broad-based posterior spur disc complex effac ing anterior thecal sac. There is mild facet arthropathy and ligamentum flavum hypertrophy. There is effacement of the posterior lateral thecal sac on axial image 50. There is fairly moderate bilateral neural foraminal narrowing. Axial images at L4-L5 level show moderate facet degenerative changes and ligament flavum hypertrophy placing posterior lateral thecal sac. There is [id number] broad disc bulge effacing anterior th ecal sac. There is mild bilateral anterior inferior neural foraminal narrowing. Axial images at L5-S1 level show moderate to advanced facet arthropathy bilaterally. There is small c entral disc protrusion. Patent bilateral neural foramina. IMPRESSION: Multilevel degenerative changes greatest at L3-L4 level as detailed above. No acute findings are evident.
[2019-12-22] MEDS ORDERED: hydrALAZINE HCL 20 MG/ML 1 ML VIAL IVP STA (09:50)
[2019-12-22 10:07] LABS: Basophils # (A) 0.1 k/uL (0-0.2); Basophils % (A) 0 %; Eosinophils # (A) 0.3 k/uL (0-0.7); Eosinophils % (A) 2 %; HCT 41.5 % (34.0-46.0); HGB 13.4 gm/dL (11.4-16.0); Lymphocytes # (A) 1.7 k/uL (1.0-4.8); Lymphocytes % (A) 13 %; MCH 30.2 pg (25.0-35.0); MCHC 32.2 g/dL (31.0-37.0); MCV 93.9 fL (80.0-100.0); Mean Platelet Volume 7.3; Monocytes # (A) 0.5 k/uL (0-1.0); Monocytes % (A) 4 %; Neutrophils # (A) 10.5 k/uL (1.3-7.7); Neutrophils % (A) 80 %; Platelet Count 233 k/uL (150-450); RBC 4.42 m/uL (3.80-5.40); RDW 13.9 % (11.5-15.5); WBC 13.1 k/uL (3.8-10.6)
--- NOTE | 2019-12-22 10:11 | ED ---
Fall HPI - General Chief Complaint: Fall Stated Complaint: L lower leg weakness Time Seen by Provider: 12/22/19 08:19 Source: patient, EMS Mode of arrival: EMS - History of Present Illness Initial Comments: 79 yo female presenting for cc of leg swelling, leg weakness, recent fall. Patient states she has chronic left leg weaknes, she statse it has been that way for years. She states approximately 2 nights ago she woke up and was wearing a very smooth night gown causing her to slide out of the bed onto her bottom. Patient states that she did not hit her head, have LOC, or neck injury. States that she had new low back pain. Patient states her leg weakness seems about the same, but her legs are starting to feel heavy from increasing swelling that has been developing over the past year, patient states that her PCP is aware and she takes lasix, she denies known heart failure. denies new SOB, states chronic with ambulatino, denies chest pain, loss of bowel/bladder control, urinary retention sensation deficits or inability to ambulate. Patient denies cancer, IVDU or fevers. Denies URI symptoms or urinary symptoms. Pt feels the leg weakness may be due to the increased swelling. She is pleasant on arrival in no acute distress. - Related Data Home Medications Medication Instructions Recorded Confirmed Allopurinol [Zyloprim] 300 mg PO DAILY 07/21/13 12/22/19 Gabapentin [Neurontin] 400 mg PO QID 07/21/13 12/22/19 Insulin Glargine,Hum.rec.anlog 50 unit SQ HS 07/21/13 12/22/19 [Lantus Solostar] Levothyroxine Sodium [Synthroid] 100 mcg PO DAILY 07/21/13 12/22/19 Lovastatin [Mevacor] 20 mg PO HS 07/21/13 12/22/19 metFORMIN HCL [Glucophage] 850 mg PO TID 05/06/14 12/22/19 Furosemide [Lasix] 40 mg PO BID 01/21/17 12/22/19 Omeprazole [PriLOSEC] 20 mg PO BID 10/13/17 12/22/19 Acetaminophen [Tylenol] 500 mg PO TID PRN 08/19/18 12/22/19 INSULIN LISPRO (HumaLOG) [humaLOG] 14 units SQ AC-TID 08/19/18 12/22/19 Ergocalciferol (Vitamin D2) 1,250 mcg PO QMONTHLY 12/22/19 12/22/19 [Drisdol] Glimepiride [Amaryl] 8 mg PO DAILY 12/22/19 12/22/19 Losartan Potassium [Cozaar] 25 mg PO DAILY 12/22/19 12/22/19 NIFEdipine [NIFEdipine ER 90 mg PO DAILY 12/22/19 12/22/19 (Osmotic)] Naproxen [Naprosyn] 500 mg PO Q12HR PRN 12/22/19 12/22/19 Spironolactone [Aldactone] 25 mg PO DAILY 12/22/19 12/22/19 Zolpidem [Ambien] 5 mg PO HS PRN 12/22/19 12/22/19 carvediloL [Carvedilol] 25 mg PO BID 12/22/19 12/22/19 traMADol HCl [Ultram] 50 mg PO Q6HR PRN 12/22/19 12/22/19 traZODone HCL [Desyrel] 50 - 100 mg PO HS 12/22/19 12/22/19 Previous Rx's Medication Instructions Recorded HYDROcodone/APAP 5-325MG [Howe 1 tab PO Q6HR PRN 3 Days #12 tab 12/22/19 5-325] Allergies Allergy/AdvReac Type Severity Reaction Status Date / Time nitrofurantoin Allergy Rash/Hives Verified 12/22/19 09:56 Sulfa (Sulfonamide Allergy Rash/Hives Verified 12/22/19 09:56 Antibiotics) STEROIDS AdvReac Hallucinati Uncoded 12/22/19 09:56 ons Review of Systems ROS Statement: Those systems with pertinent positive or pertinent negative responses have been documented in the HPI. ROS Other: All systems not noted in ROS Statement are negative. Past Medical History Past Medical History: Cancer, Heart Failure, COPD, Diabetes Mellitus, Fibromyalgia, GERD/Reflux, Hyperlipidemia, Hypertension, Osteoarthritis (OA), Pneumonia, Skin Disorder, Sleep Apnea/CPAP/BIPAP, Thyroid Disorder Additional Past Medical History / Comment(s): COPD, obesity, obesity hypoventilation syndrome, lymphoma, obstructive sleep apnea, hiatal hernia, gout, psoriasis, cystic kidneys, sciatica, chronic back pain, , diabetes mellit us, fibroid tumors per history, degenerative arthritis., And the patient also has had previous history of recurrent urine infections History of Any Multi-Drug Resistant Organisms: None Reported Past Surgical History: Tubal Ligation Additional Past Surgical History / Comment(s): D&C, tumor removed from throat Past Anesthesia/Blood Transfusion Reactions: No Reported Reaction, Postoperative Nausea & Vomiting (PONV) Past Psychological History: Anxiety Smoking Status: Never smoker Past Alcohol Use History: None Reported Past Drug Use History: None Reported - Past Family History Mother Family Medical History: No Reported History Father Additional Family Medical History / Comment(s): pulmonary fibrosis General Exam - General Exam Comments Initial Comments: General: The patient is awake and alert, in no distress Eye: +3 mm pupils are equal, round and reactive to light, extra-ocular movements are intact. No nystagmus. There is normal conjunctiva bilaterally. No signs of icterus. Ears, nose, mouth and throat: There are moist mucous membranes and no oral lesions. Neck: The neck is supple, there is no tenderness or JVD. Cardiovascular: There is a regular rate and rhythm. No murmur, rub or gallop is appreciated. Respiratory: Lungs are clear to auscultation, respirations are non-labored, breath sounds are equal. No wheezes, stridor, rales, or rhonchi. Gastrointestinal: Soft, non-distended, non-tender abdomen without masses or organomegaly noted. There is no rebound or guarding present. : Normal rectal tone, normal sensation perineum Musculoskeletal: Normal inspection of the back, no midline tenderness, some mild paraspinal of lumbarNormal ROM, no tenderness. Strength 5/5 of the LE b/l,. Sensation intact of the LE b/l including the saddle region. Radial pulses equal bilaterally 2+. Can weight bear and ambulate with a walker. Neurological: A&O x 3. CN II-XII intact grossly, There are no obvious motor or sensory deficits. Coordination appears grossly intact. Speech is normal. Skin: Skin is warm and dry and no rashes or lesions are noted. Psychiatric: Cooperative, appropriate mood & affect, normal judgment. Limitations: physical limitation Course Vital Signs 12/22/19 12/22/19 12/22/19 08:19 09:21 09:30 Temperature 98.3 F Pulse Rate 68 Respiratory 20 Rate Blood Pressure 176/70 163/107 163/107 O2 Sat by Pulse 95 98 Oximetry 12/22/19 12/22/19 12/22/19 09:36 10:00 10:02 Temperature Pulse Rate 67 67 Respiratory 18 15 Rate Blood Pressure 163/107 163/107 161/76 O2 Sat by Pulse 98 99 Oximetry 12/22/19 12/22/19 12/22/19 10:30 11:00 11:34 Temperature 97.6 F Pulse Rate 71 74 Respiratory 18 16 Rate Blood Pressure 161/76 159/68 179/87 O2 Sat by Pulse 99 97 Oximetry Medical Decision Making - Medical Decision Making 79yo presenting for fall, back and hip pain. NO fx. Some mid disc herniation noted. No weakness appreciated on exam, pt can weight bear and ambulate. SHe does think the edema is causing increased leg weight and causing her to feel weak. No CP/SOB. CXR clear. BNP wnl. Patient has rectal tone, leg sensation, perineum and saddle sensation. Patient pain improved and I feel she is stable for discharge with pcp f/u. Diego agreeable, wants to go home. Dr. Subramanian agreeable to care plan. Ventricular rate 67 bpm, NC interval 166 small seconds, QRS ration 84 ms, QT/QTC 396/418 ms. This is normal sinus there is no ST elevation or depression nonspecific changes - Lab Data Result diagrams: 12/22/19 09:31 12/22/19 09:31 Lab Results 12/22/19 12/22/19 12/22/19 Range/Units 09:31 09:31 09:31 WBC 13.1 H (3.8-10.6) k/uL RBC 4.42 (3.80-5.40) m/uL Hgb 13.4 (11.4-16.0) gm/dL Hct 41.5 (34.0-46.0) % MCV 93.9 (80.0-100.0) fL MCH 30.2 (25.0-35.0) pg MCHC 32.2 (31.0-37.0) g/dL RDW 13.9 (11.5-15.5) % Plt Count 233 (150-450) k/uL MPV 7.3 Neutrophils % 80 % Lymphocytes % 13 % Monocytes % 4 % Eosinophils % 2 % Basophils % 0 % Neutrophils # 10.5 H (1.3-7.7) k/uL Lymphocytes # 1.7 (1.0-4.8) k/uL Monocytes # 0.5 (0-1.0) k/uL Eosinophils # 0.3 (0-0.7) k/uL Basophils # 0.1 (0-0.2) k/uL PT 10.2 (9.0-12.0) sec INR 1.0 (<1.2) APTT 23.1 (22.0-30.0) sec Sodium 135 L (137-145) mmol/L Potassium 4.4 (3.5-5.1) mmol/L Chloride 93 L (98-107) mmol/L Carbon Dioxide 36 H (22-30) mmol/L Anion Gap 6 mmol/L BUN 15 (7-17) mg/dL Creatinine 0.63 (0.52-1.04) mg/dL Est GFR (CKD-EPI)AfAm >90 (>60 ml/min/1.73 sqM) Est GFR (CKD-EPI)NonAf 85 (>60 ml/min/1.73 sqM) Glucose 224 H (74-99) mg/dL Calcium 9.4 (8.4-10.2) mg/dL Magnesium 1.5 L (1.6-2.3) mg/dL Total Bilirubin 0.6 (0.2-1.3) mg/dL AST 28 (14-36) U/L ALT 15 (4-34) U/L Alkaline Phosphatase 52 (38-126) U/L Troponin I (0.000-0.034) ng/mL NT-Pro-B Natriuret Pep pg/mL Total Protein 6.9 (6.3-8.2) g/dL Albumin 4.2 (3.5-5.0) g/dL 12/22/19 12/22/19 Range/Units 09:31 09:31 WBC (3.8-10.6) k/uL RBC (3.80-5.40) m/uL Hgb (11.4-16.0) gm/dL Hct (34.0-46.0) % MCV (80.0-100.0) fL MCH (25.0-35.0) pg MCHC (31.0-37.0) g/dL RDW (11.5-15.5) % Plt Count (150-450) k/uL MPV Neutrophils % % Lymphocytes % % Monocytes % % Eosinophils % % Basophils % % Neutrophils # (1.3-7.7) k/uL Lymphocytes # (1.0-4.8) k/uL Monocytes # (0-1.0) k/uL Eosinophils # (0-0.7) k/uL Basophils # (0-0.2) k/uL PT (9.0-12.0) sec INR (<1.2) APTT (22.0-30.0) sec Sodium (137-145) mmol/L Potassium (3.5-5.1) mmol/L Chloride (98-107) mmol/L Carbon Dioxide (22-30) mmol/L Anion Gap mmol/L BUN (7-17) mg/dL Creatinine (0.52-1.04) mg/dL Est GFR (CKD-EPI)AfAm (>60 ml/min/1.73 sqM) Est GFR (CKD-EPI)NonAf (>60 ml/min/1.73 sqM) Glucose (74-99) mg/dL Calcium (8.4-10.2) mg/dL Magnesium (1.6-2.3) mg/dL Total Bilirubin (0.2-1.3) mg/dL AST (14-36) U/L ALT (4-34) U/L Alkaline Phosphatase (38-126) U/L Troponin I <0.012 (0.000-0.034) ng/mL NT-Pro-B Natriuret Pep 85 pg/mL Total Protein (6.3-8.2) g/dL Albumin (3.5-5.0) g/dL Disposition Clinical Impression: Low back pain, Fall, Leg swelling Disposition: HOME SELF-CARE Condition: Good Instructions (If sedation given, give patient instructions): Leg Edema (ED), Lumbar Radiculopathy (ED) Additional Instructions: Please use medication as discussed. Please follow-up with family doctor in the next 2 days. Recommend orthopedic spine follow-up. Please return to emergency room if the symptoms increase or worsen or for any other concerns. Prescriptions: HYDROcodone/APAP 5-325MG [Howe 5-325] 1 tab PO Q6HR PRN 3 Days #12 tab PRN Reason: Pain Is patient prescribed a controlled substance at d/c from ED?: Yes When asked, does pt state using other controlled substances?: No If prescribed controlled substance>3 days was MAPS reviewed?: Prescribed <3 Days If opioid is for acute pain is fill amount 7 days or less?: Yes If Rx opioid, was Start Talking consent form obtained?: Yes Referrals: Aguilar Hays MD [Primary Care Provider] - 1-2 days Sim Narvaez DO [Doctor of Osteopathic Medicine] - 1-2 days Time of Disposition: 11:30
[2019-12-22 10:20] LABS: ALT 15 U/L (4-34); AST 28 U/L (14-36); African American GFR (CKD) >90 (>60 ml/min/1.73 sqM); Albumin 4.2 g/dL (3.5-5.0); Alkaline Phosphatase 52 U/L (38-126); Anion Gap 6 mmol/L; Blood Urea Nitrogen 15 mg/dL (7-17); Calcium 9.4 mg/dL (8.4-10.2); Carbon Dioxide 36 mmol/L (22-30); Chloride 93 mmol/L (98-107); Glucose 224 mg/dL (74-99); Magnesium 1.5 mg/dL (1.6-2.3); Non-African American GFR(CKD) 85 (>60 ml/min/1.73 sqM); Potassium 4.4 mmol/L (3.5-5.1); Sodium 135 mmol/L (137-145); Total Bilirubin 0.6 mg/dL (0.2-1.3); Total Protein 6.9 g/dL (6.3-8.2)
[2019-12-22 10:33] LABS: Partial Thromboplastin Time 23.1 sec (22.0-30.0); Prothrombin Time 10.2 sec (9.0-12.0)
--- NOTE | 2019-12-22 10:48 | XR ---
EXAMINATION TYPE: XR chest 2V DATE OF EXAM: 12/22/2019 COMPARISON: Chest x-ray August 21, 2018. HISTORY: CHF and shortness of breath. TECHNIQUE: Frontal and lateral views of the chest are obtained. FINDINGS: There is chronic medical changes without suspicious new focal air space opacity, pleural e ffusion, or pneumothorax seen. Cardiomegaly redemonstrated. Multilevel spurring of thoracic spine aga in seen. IMPRESSION: Cardiomegaly and chronic changes without acute pulmonary process.
[2019-12-22] MEDS ORDERED: HYDROcodone/APAP 5-325MG 1 EACH TAB PO STA (10:52)
--- NOTE | 2019-12-22 10:52 | XR ---
EXAMINATION TYPE: XR Hip LT and AP Pelvis DATE OF EXAM: 12/22/2019 COMPARISON: CT 03/06/2017 PET/CT 05/21/2018 HISTORY: Lymphoma, metastasis TECHNIQUE: A single AP view of the pelvis is obtained. Two views of the left hip are obtained. FINDINGS: There is no acute fracture/dislocation evident in the pelvis. The hip and sacroiliac join ts appear symmetric and unremarkable. The overlying soft tissue appears unremarkable. Two views of left hip show no acute fracture or dislocation. No focal lytic or sclerotic lesion seen in the proximal left femur. The overlying soft tissue is unremarkable. Degenerative disc changes n oted in the lower lumbar spine. IMPRESSION: There is no acute fracture or dislocation in the pelvis or left hip. Bone scan may be of increased sensitivity or alternatively consider MRI
[2019-12-22 11:37] VITALS: TEMP 97.6
[2019-12-22 12:50] VITALS: BP 154/72; PULSE 70; RESP 18
== END 2019-12-22 12:57 | disposition home or self-care (01) ==
LOC: EC 08:08
DX: M51.26 Other intervertebral disc displacement, lumbar region (principal); R60.0 Localized edema; F41.9 Anxiety disorder, unspecified; E11.9 Type 2 diabetes mellitus without complications; M79.7 Fibromyalgia; K21.9 Gastro-esophageal reflux disease without esophagitis; M10.9 Gout, unspecified; I50.9 Heart failure, unspecified; E78.5 Hyperlipidemia, unspecified; I11.0 Hypertensive heart disease with heart failure; M19.90 Unspecified osteoarthritis, unspecified site; G47.33 Obstructive sleep apnea (adult) (pediatric); E07.9 Disorder of thyroid, unspecified; Z99.89 Dependence on other enabling machines and devices; Z79.4 Long term (current) use of insulin; Z79.890 Hormone replacement therapy; Z79.899 Other long term (current) drug therapy; Z79.1 Long term (current) use of non-steroidal anti-inflammatories (NSAID); W06.XXXA Fall from bed, initial encounter; Y92.003 Bedroom of unspecified non-institutional (private) residence as the place of occurrence of the external cause; Z88.2 Allergy status to sulfonamides; Z88.8 Allergy status to other drugs, medicaments and biological substances; E66.9 Obesity, unspecified; Z68.43 Body mass index [BMI] 50.0-59.9, adult
CPT/HCPCS: 36415; 93005; 83880; 80053; 83735; 84484; 85025; 85610; 85730; 73502; 71046; 72131; 96374; 99284; J0360

== ENCOUNTER 2019-12-26 13:39 | Observation (INO) | payer MEDICARE ==
[2019-12-26] MEDS ORDERED: METOCLOPRAMIDE 5 MG/ML 2 ML VIAL IVP STA (13:46)
[2019-12-26] MEDS ORDERED: MECLIZINE 12.5 MG TAB PO STA (13:46)
--- NOTE | 2019-12-26 13:48 | ED ---
General Adult HPI - General Stated complaint: Nausea, Dizzy Time Seen by Provider: 12/26/19 13:41 Source: patient, EMS Mode of arrival: EMS Limitations: physical limitation - History of Present Illness Initial comments: Dictation was produced using [employer] dictation software. please excuse any grammatical, word or spelling errors. This patient was cared for during a federal and state declared state of emergency secondary to Covid 19 Chief Complaint: 79-year-old female presents with dizziness and nausea History of Present Illness: 79-year-old female she presents today with dizziness and nausea. Patient states she's been feeling this way for 2-3 weeks. She called her primary care physician on the phone today and was told to come to the emergency department. She called EMS and patient was brought here. She denies any new pain complaints per she has history of chronic knee pain and back pain that she states has not changed recently. She hasn't had any vomiting. No diarrhea. No abdominal pain. She does report that the room feels it spinning and also that she feels as though she feels lightheaded. Patient reports being in the hospital recently for knee pain. The ROS documented in this emergency department record has been reviewed and con firmed by me. Those systems with pertinent positive or negative responses have been documented in the HPI. All other systems are other negative and/or noncontributory. PHYSICAL EXAM: General Impression: Alert and oriented x3, not in acute distress HEENT: Normocephalic atraumatic, extra-ocular movements intact, pupils equal and reactive to light bilaterally, mucous membranes moist. Cardiovascular: Heart regular rate and rhythm Chest: Able to complete full sentences, no retractions, no tachypnea Abdomen: abdomen soft, non-tender, non-distended, no organomegaly Musculoskeletal: Pulses present and equal in all extremities, no peripheral edema Motor: no focal deficits noted Neurological: CN II-XII grossly intact, no focal motor or sensory deficits noted, no nystagmus, no truncal ataxia, no extremity ataxia Skin: Intact with no visualized rashes Psych: Normal affect and mood ED course: 79 y old female presents today with dizziness and nausea. [vital signs] Vital signs upon arrival are within acceptable limits. Laboratory evaluation obtained. CBC within acceptable limits. Metabolic panel is within acceptable limits however magnesium slightly depressed at 1.4. Patient given magnesium oxide tabs. Case is discussed with Dr. Hays who reports that patient has been having frequent falls at home. She is a fall risk and he would prefer the patient be admitted to the hospital for likely placement with assistance. - Related Data Home Medications Medication Instructions Recorded Confirmed Allopurinol [Zyloprim] 300 mg PO DAILY 07/21/13 12/26/19 Gabapentin [Neurontin] 400 mg PO QID 07/21/13 12/26/19 Insulin Glargine,Hum.rec.anlog 45 unit SQ HS 07/21/13 12/26/19 [Lantus Solostar] Levothyroxine Sodium [Synthroid] 100 mcg PO DAILY 07/21/13 12/26/19 Lovastatin [Mevacor] 20 mg PO HS 07/21/13 12/26/19 metFORMIN HCL [Glucophage] 850 mg PO TID 05/06/14 12/26/19 Furosemide [Lasix] 40 mg PO BID 01/21/17 12/26/19 Omeprazole [PriLOSEC] 20 mg PO BID 10/13/17 12/26/19 Acetaminophen [Tylenol] 500 mg PO TID PRN 08/19/18 12/26/19 INSULIN LISPRO (HumaLOG) [humaLOG] 15 units SQ AC-TID 08/19/18 12/26/19 Ergocalciferol (Vitamin D2) 1,250 mcg PO QMONTHLY 12/22/19 12/26/19 [Drisdol] Glimepiride [Amaryl] 8 mg PO DAILY 12/22/19 12/26/19 Losartan Potassium [Cozaar] 25 mg PO HS 12/22/19 12/26/19 NIFEdipine [NIFEdipine ER 90 mg PO DAILY 12/22/19 12/26/19 (Osmotic)] Spironolactone [Aldactone] 25 mg PO DAILY 12/22/19 12/26/19 carvediloL [Carvedilol] 25 mg PO BID 12/22/19 12/26/19 traMADol HCl [Ultram] 50 mg PO HS PRN 12/22/19 12/26/19 traZODone HCL [Desyrel] 50 - 100 mg PO HS 12/22/19 12/26/19 Previous Rx's Medication Instructions Recorded HYDROcodone/APAP 5-325MG [[place] 1 tab PO Q6HR PRN 3 Days #12 tab 12/22/19 5-325] Allergies Allergy/AdvReac Type Severity Reaction Status Date / Time nitrofurantoin Allergy Rash/Hives Verified 12/26/19 13:47 Sulfa (Sulfonamide Allergy Rash/Hives Verified 12/26/19 13:47 Antibiotics) STEROIDS AdvReac Hallucinati Uncoded 12/26/19 13:47 ons Review of Systems ROS Statement: Those systems with pertinent positive or pertinent negative responses have been documented in the HPI. ROS Other: All systems not noted in ROS Statement are negative. Past Medical History Past Medical History: Cancer, Heart Failure, COPD, Diabetes Mellitus, Fibromyalgia, GERD/Reflux, Hyperlipidemia, Hypertension, Osteoarthritis (OA), Pneumonia, Skin Disorder, Sleep Apnea/CPAP/BIPAP, Thyroid Disorder Additional Past Medical History / Comment(s): COPD, obesity, obesity hypoventilation syndrome, lymphoma, obstructive sleep apnea, hiatal hernia, g out, psoriasis, cystic kidneys, sciatica, chronic back pain, , diabetes mellitus, fibroid tumors per history, degenerative arthritis., And the patient also has had previous history of recurrent urine infections History of Any Multi-Drug Resistant Organisms: None Reported Past Surgical History: Tubal Ligation Additional Past Surgical History / Comment(s): D&C, tumor removed from throat Past Anesthesia/Blood Transfusion Reactions: No Reported Reaction, Postoperative Nausea & Vomiting (PONV) Past Psychological History: Anxiety Smoking Status: Former smoker Past Alcohol Use History: None Reported Past Drug Use History: None Reported - Past Family History Mother Family Medical History: No Reported History Father Additional Family Medical History / Comment(s): pulmonary fibrosis General Exam Limitations: physical limitation Course Vital Signs 12/26/19 13:40 Temperature 99.3 F Pulse Rate 73 Respiratory 18 Rate Blood Pressure 159/65 O2 Sat by Pulse 97 Oximetry Medical Decision Making - Lab Data Result diagrams: 12/26/19 14:01 12/26/19 14:01 Lab Results 12/26/19 12/26/19 Range/Units 14:01 14:01 WBC 11.5 H (3.8-10.6) k/uL RBC 4.71 (3.80-5.40) m/uL Hgb 13.7 (11.4-16.0) gm/dL Hct 43.4 (34.0-46.0) % MCV 92.1 (80.0-100.0) fL MCH 29.2 (25.0-35.0) pg MCHC 31.7 (31.0-37.0) g/dL RDW 14.3 (11.5-15.5) % Plt Count 276 (150-450) k/uL MPV 7.7 Neutrophils % 75 % Lymphocytes % 17 % Monocytes % 4 % Eosinophils % 2 % Basophils % 1 % Neutrophils # 8.6 H (1.3-7.7) k/uL Lymphocytes # 2.0 (1.0-4.8) k/uL Monocytes # 0.5 (0-1.0) k/uL Eosinophils # 0.3 (0-0.7) k/uL Basophils # 0.1 (0-0.2) k/uL Sodium 136 L (137-145) mmol/L Potassium 4.2 (3.5-5.1) mmol/L Chloride 93 L (98-107) mmol/L Carbon Dioxide 33 H (22-30) mmol/L Anion Gap 10 mmol/L BUN 10 (7-17) mg/dL Creatinine 0.62 (0.52-1.04) mg/dL Est GFR (CKD-EPI)AfAm >90 (>60 ml/min/1.73 sqM) Est GFR (CKD-EPI)NonAf 86 (>60 ml/min/1.73 sqM) Glucose 178 H (74-99) mg/dL Calcium 9.4 (8.4-10.2) mg/dL Magnesium 1.4 L (1.6-2.3) mg/dL Total Bilirubin 0.7 (0.2-1.3) mg/dL AST 28 (14-36) U/L ALT 18 (4-34) U/L Alkaline Phosphatase 59 (38-126) U/L Total Protein 7.3 (6.3-8.2) g/dL Albumin 4.5 (3.5-5.0) g/dL Disposition Clinical Impression: Dizziness Disposition: ADMITTED IP TO THIS [facility] Condition: Fair Referrals: Aguilar Hays MD [Primary Care Provider] - 1-2 days Decision Time: 15:16
[2019-12-26 14:23] LABS: Basophils # (A) 0.1 k/uL (0-0.2); Basophils % (A) 1 %; Eosinophils # (A) 0.3 k/uL (0-0.7); Eosinophils % (A) 2 %; HCT 43.4 % (34.0-46.0); HGB 13.7 gm/dL (11.4-16.0); Lymphocytes % (A) 17 %; MCH 29.2 pg (25.0-35.0); MCHC 31.7 g/dL (31.0-37.0); MCV 92.1 fL (80.0-100.0); Mean Platelet Volume 7.7; Monocytes # (A) 0.5 k/uL (0-1.0); Monocytes % (A) 4 %; Neutrophils # (A) 8.6 k/uL (1.3-7.7); Neutrophils % (A) 75 %; Platelet Count 276 k/uL (150-450); RBC 4.71 m/uL (3.80-5.40); RDW 14.3 % (11.5-15.5); WBC 11.5 k/uL (3.8-10.6)
[2019-12-26 14:34] LABS: ALT 18 U/L (4-34); AST 28 U/L (14-36); African American GFR (CKD) >90 (>60 ml/min/1.73 sqM); Albumin 4.5 g/dL (3.5-5.0); Alkaline Phosphatase 59 U/L (38-126); Anion Gap 10 mmol/L; Blood Urea Nitrogen 10 mg/dL (7-17); Calcium 9.4 mg/dL (8.4-10.2); Carbon Dioxide 33 mmol/L (22-30); Chloride 93 mmol/L (98-107); Glucose 178 mg/dL (74-99); Magnesium 1.4 mg/dL (1.6-2.3); Non-African American GFR(CKD) 86 (>60 ml/min/1.73 sqM); Potassium 4.2 mmol/L (3.5-5.1); Sodium 136 mmol/L (137-145); Total Bilirubin 0.7 mg/dL (0.2-1.3); Total Protein 7.3 g/dL (6.3-8.2)
[2019-12-26] MEDS ORDERED: MAGNESIUM OXIDE 400 MG TAB PO STA (14:55)
[2019-12-26] MEDS ORDERED: ONDANSETRON 4 MG/2 ML VIAL IVP STA (14:59)
[2019-12-26] MEDS ORDERED: NALOXONE 0.4 MG/ML 1 ML VIAL IV PRN (15:14)
[2019-12-26] MEDS ORDERED: ACETAMINOPHEN TAB 500 MG TAB PO PRN ×2 (15:34→21:00)
[2019-12-26] MEDS: ACETAMINOPHEN TAB 325 MG TAB PO PRN (15:39)
[2019-12-26 17:14] LABS: Glucose,Whole Blood 166 mg/dL (75-99)
[2019-12-26] MEDS ORDERED: GABAPENTIN 400 MG CAP PO SCH (18:00)
[2019-12-26] MEDS ORDERED: traMADol 50 MG TAB PO PRN (21:00)
[2019-12-26 21:18] LABS: Glucose,Whole Blood 124 mg/dL (75-99)
[2019-12-26] MEDS: metFORMIN 850 MG TAB PO SCH (22:42)
[2019-12-26] MEDS: GABAPENTIN 400 MG CAP PO SCH (22:42)
[2019-12-27] MEDS ORDERED: LEVOTHYROXINE 100 MCG TAB PO SCH (06:30)
[2019-12-27 06:32] LABS: Glucose,Whole Blood 131 mg/dL (75-99)
[2019-12-27] MEDS: ACETAMINOPHEN TAB 325 MG TAB PO PRN (06:33)
[2019-12-27] MEDS ORDERED: carvediloL 12.5 MG TAB PO SCH (07:30)
[2019-12-27] MEDS: INSULIN ASPART (NovoLOG) 100 UNIT/ML VIAL SQ SCH ×2 (08:49→12:58)
[2019-12-27] MEDS: GABAPENTIN 400 MG CAP PO SCH ×2 (08:49→12:59)
[2019-12-27] MEDS: metFORMIN 850 MG TAB PO SCH (08:50)
[2019-12-27] MEDS ORDERED: NIFEdipine XL 90 MG TAB.ER.24 PO SCH (09:00)
[2019-12-27] MEDS ORDERED: FUROSEMIDE 40 MG TAB PO SCH (09:00)
[2019-12-27] MEDS ORDERED: SPIRONOLACTONE 25 MG TAB PO SCH (09:00)
[2019-12-27] MEDS ORDERED: HYDROcodone/APAP 5-325MG 1 EACH TAB PO PRN (09:00)
[2019-12-27] MEDS ORDERED: GLIMEPIRIDE 4 MG TAB PO SCH (09:00)
[2019-12-27 10:08] VITALS: TEMP 98
[2019-12-27 12:43] LABS: Glucose,Whole Blood 162 mg/dL (75-99)
[2019-12-27 15:25] VITALS: BP 152/78; PULSE 74; RESP 18
--- NOTE | 2019-12-27 17:27 | HP ---
HISTORY AND PHYSICAL CHIEF COMPLAINT: Failure to thrive with frequent falls. HISTORY OF PRESENT ILLNESS: This is another admission for this 79-year-old obese and poorly motivated white female with congestive heart failure, hypertension and diabetes. She is extremely inactive. She is becoming progressively more weak and frequently falls at home. Whenever she does, nobody can get her up and they have to either call the ambulance or the Fire Department. Apparently, this has been going on over a period of several days and I was asked to call and talk to the patient. She admitted that she was not able to manage at home and she agreed to go to the hospital for admission, physical therapy and she was told that she would have to go into facility for rehab. REVIEW OF SYSTEMS: She has had no focal neurologic deficits, syncope, difficulty with vision, hearing, chest pain, cough, hemoptysis, angina, orthopnea, PND, abdominal pain, nausea, vomiting, hematemesis, melena, hematochezia, jaundice, hepatitis, renal failure, incontinence, nocturia, frequency, urgency, dysuria, hematuria, etc. Past medical history, family history and personal and social histories are otherwise all unremarkable and noncontributory other than the the extensive list of medications that she is on. She does not smoke or drink. PHYSICAL EXAMINATION: Blood pressure is 142/80 with a pulse of 70, respirations of 16, she is afebrile. In general, she appeared to be obese. Skin color is normal, skin was dry. Head, ears, eyes, nose, mouth, and throat were normal. The chest is clear. Breath sounds are poor. Cardiac exam demonstrates sinus rhythm and no murmurs or extra sounds. The abdomen is protuberant, soft. There are no masses or tenderness. Extremities demonstrate stasis dermatitis. Neurologically she is intact. She is admitted to the hospital diagnosis: 1. Frequent falls. 2. Obesity. 3. Poor physical conditioning and failure to thrive. 4. Hypertension. 5. Diabetes. 6. Congestive heart failure. PLAN: 1. Bed rest. 2. IV fluids. 3. Physical therapy. 4. Discharge planning. MMNIKOLE / ELENA: [id number] /
--- NOTE | 2019-12-27 19:32 | DS ---
DISCHARGE SUMMARY CHIEF COMPLAINT: Frequent falling and general debility with obesity. HISTORY OF PRESENT ILLNESS AND PHYSICAL EXAMINATION: Details of this lady's history and physical can be found in the initial workup. LABORATORY STUDIES: While she was in the hospital, she had laboratory studies, details of which can be found in the laboratory section of her chart. COURSE IN THE HOSPITAL: After admission, she was placed on bedrest, started on intravenous fluids and it was planned that she would have physical therapy and an evaluation to look for other reasons for her falling after which she was told that she should go to [facility] for physical therapy and rehabilitation. She had agreed to this before coming to the hospital, but once in, she has steadfastly refused. Arrangements were made for her to go home with the care of her family and visiting nurses. FINAL DIAGNOSES: 1. Frequent falls. 2. General debility. 3. Obesity. 4. Congestive heart failure. 5. Diabetes. 6. Hypertension. OPERATIONS: None. CONSULTATIONS: None. She was not improved. MMNIKOLE / YUMIKON: [id number] /
[2019-12-27] MEDS ORDERED: LOSARTAN 25 MG TAB PO SCH (21:00)
[2019-12-27] MEDS ORDERED: INSULIN DETEMIR (LEVEMIR) 100 UNIT/ML SYR SQ SCH (21:00)
[2019-12-27] MEDS ORDERED: traZODone HCL 50 MG TAB PO SCH (21:00)
== END 2019-12-27 17:51 | disposition home health service (06) ==
LOC: EC 13:39 → 3NCARDOBS 15:40
PROVIDERS: ADMIT Family Medicine; ATTEND Family Medicine
DX: R42 Dizziness and giddiness (principal); R11.0 Nausea; R62.7 Adult failure to thrive; G89.29 Other chronic pain; M54.9 Dorsalgia, unspecified; M25.569 Pain in unspecified knee; E83.42 Hypomagnesemia; R29.6 Repeated falls; I11.0 Hypertensive heart disease with heart failure; I50.9 Heart failure, unspecified; J44.9 Chronic obstructive pulmonary disease, unspecified; E11.9 Type 2 diabetes mellitus without complications; M79.7 Fibromyalgia; K21.9 Gastro-esophageal reflux disease without esophagitis; E78.5 Hyperlipidemia, unspecified; M19.90 Unspecified osteoarthritis, unspecified site; K44.9 Diaphragmatic hernia without obstruction or gangrene; M10.9 Gout, unspecified; L40.9 Psoriasis, unspecified; Q61.9 Cystic kidney disease, unspecified; M54.30 Sciatica, unspecified side; F41.9 Anxiety disorder, unspecified; R53.1 Weakness; I87.2 Venous insufficiency (chronic) (peripheral); R53.81 Other malaise; Z79.899 Other long term (current) drug therapy; Z79.890 Hormone replacement therapy; Z79.4 Long term (current) use of insulin; Z79.891 Long term (current) use of opiate analgesic; Z88.2 Allergy status to sulfonamides; Z88.1 Allergy status to other antibiotic agents; Z87.01 Personal history of pneumonia (recurrent); Z99.89 Dependence on other enabling machines and devices; E66.2 Morbid (severe) obesity with alveolar hypoventilation; Z68.43 Body mass index [BMI] 50.0-59.9, adult; Z87.891 Personal history of nicotine dependence; Z85.72 Personal history of non-Hodgkin lymphomas; Z91.81 History of falling; Z83.6 Family history of other diseases of the respiratory system
CPT/HCPCS: 96374; 96375; 99285; 36415; 93005; 97530; 97162; 97535; 97166; 80053; 83735; 85025; G0378 ×2; J2765; J2405

== ENCOUNTER 2019-12-28 11:11 | Inpatient (IN) | payer MEDICARE ==
[2019-12-28 12:02] LABS: Basophils # (A) 0.1 k/uL (0-0.2); Basophils % (A) 1 %; Eosinophils # (A) 0.2 k/uL (0-0.7); Eosinophils % (A) 2 %; HCT 45.1 % (34.0-46.0); HGB 14.4 gm/dL (11.4-16.0); Lymphocytes # (A) 1.7 k/uL (1.0-4.8); Lymphocytes % (A) 14 %; MCH 30.2 pg (25.0-35.0); MCV 94.5 fL (80.0-100.0); Mean Platelet Volume 8.1; Monocytes # (A) 0.5 k/uL (0-1.0); Monocytes % (A) 4 %; Neutrophils # (A) 9.6 k/uL (1.3-7.7); Neutrophils % (A) 78 %; Platelet Count 258 k/uL (150-450); RBC 4.77 m/uL (3.80-5.40); RDW 14.2 % (11.5-15.5); WBC 12.2 k/uL (3.8-10.6)
[2019-12-28 12:16] LABS: Albumin 4.2 g/dL (3.5-5.0); Calcium 9.4 mg/dL (8.4-10.2); Partial Thromboplastin Time 22.6 sec (22.0-30.0); Potassium 3.9 mmol/L (3.5-5.1); Prothrombin Time 10.5 sec (9.0-12.0); Total Bilirubin 0.6 mg/dL (0.2-1.3)
--- NOTE | 2019-12-28 12:48 | XR ---
EXAMINATION TYPE: XR chest 2V DATE OF EXAM: 12/28/2019 COMPARISON: 12/22/2019 HISTORY: Shortness of breath TECHNIQUE: Frontal and lateral views of the chest are obtained. FINDINGS: Scattered senescent parenchymal changes noted. Hyperinflation compatible with COPD. No evidence for infiltrate. No evidence for atelectasis. Heart size is stable. Mediastinal structures are stable and grossly unremarkable. No evidence for hilar prominence. Degenerative changes dorsal spine. IMPRESSION: 1. No evidence for acute pulmonary disease.
[2019-12-28] MEDS ORDERED: NALOXONE 0.4 MG/ML 1 ML VIAL IV PRN (13:51)
--- NOTE | 2019-12-28 13:51 | ED ---
General Adult HPI - General Chief complaint: Weakness Stated complaint: weakness Time Seen by Provider: 12/28/19 11:20 Source: EMS Mode of arrival: EMS Limitations: no limitations - History of Present Illness Initial comments: 79-year-old male with multiple past medical conditions who presents emergency department saying that she has been sick for 3 weeks and has been progressively getting weaker. Review patient's chart demonstrates that she was discharged yesterday. Patient states that she continues to fall 3-4 times per day for which she needs to call EMS out to her house. After discharge home yesterday the patient states that she sustained a fall laid on the ground for several hours. She eventually called EMS was able to get her up in bed. Reports that early this morning her home care nurse came to the house was unable to get her up. Patient reports that Dr. Hays wanted to keep her yesterday in order for her to end her rehab if she is unable to care for herself however the patient refused stating that she wanted to go home. Patient states that she now understands her weakness and does believe that she needs rehab. She is req uesting admission for rehab placement - Related Data Home Medications Medication Instructions Recorded Confirmed Allopurinol [Zyloprim] 300 mg PO DAILY 07/21/13 12/28/19 Gabapentin [Neurontin] 400 mg PO QID 07/21/13 12/28/19 Insulin Glargine,Hum.rec.anlog 45 unit SQ HS 07/21/13 12/28/19 [Lantus Solostar] Levothyroxine Sodium [Synthroid] 100 mcg PO DAILY 07/21/13 12/28/19 Lovastatin [Mevacor] 20 mg PO HS 07/21/13 12/28/19 metFORMIN HCL [Glucophage] 850 mg PO TID 05/06/14 12/28/19 Furosemide [Lasix] 40 mg PO BID 01/21/17 12/28/19 Omeprazole [PriLOSEC] 20 mg PO BID 10/13/17 12/28/19 Acetaminophen [Tylenol] 500 mg PO TID PRN 08/19/18 12/28/19 INSULIN LISPRO (HumaLOG) [humaLOG] 15 units SQ AC-TID 08/19/18 12/28/19 Ergocalciferol (Vitamin D2) 1,250 mcg PO QMONTHLY 12/22/19 12/28/19 [Drisdol] Losartan Potassium [Cozaar] 25 mg PO HS 12/22/19 12/28/19 NIFEdipine [NIFEdipine ER 90 mg PO DAILY 12/22/19 12/28/19 (Osmotic)] Spironolactone [Aldactone] 25 mg PO DAILY 12/22/19 12/28/19 carvediloL [Carvedilol] 25 mg PO BID 12/22/19 12/28/19 traZODone HCL [Desyrel] 50 - 100 mg PO HS 12/22/19 12/28/19 Allergies Allergy/AdvReac Type Severity Reaction Status Date / Time nitrofurantoin Allergy Rash/Hives Verified 12/28/19 13:35 Sulfa (Sulfonamide Allergy Rash/Hives Verified 12/28/19 13:35 Antibiotics) STEROIDS AdvReac Hallucinati Uncoded 12/28/19 11:26 ons Review of Systems ROS Statement: Those systems with pertinent positive or pertinent negative responses have been documented in the HPI. ROS Other: All systems not noted in ROS Statement are negative. Past Medical History Past Medical History: Cancer, Heart Failure, COPD, Diabetes Mellitus, Fibromyalg ia, GERD/Reflux, Hyperlipidemia, Hypertension, Osteoarthritis (OA), Pneumonia, Skin Disorder, Sleep Apnea/CPAP/BIPAP, Thyroid Disorder Additional Past Medical History / Comment(s): COPD, obesity, obesity hypoventilation syndrome, lymphoma, obstructive sleep apnea, hiatal hernia, gout, psoriasis, cystic kidneys, sciatica, chronic back pain, , diabetes mellitus, fibroid tumors per history, degenerative arthritis., And the patient also has had previous history of recurrent urine infections History of Any Multi-Drug Resistant Organisms: None Reported Past Surgical History: Tubal Ligation Additional Past Surgical History / Comment(s): D&C, tumor removed from throat Past Anesthesia/Blood Transfusion Reactions: No Reported Reaction, Postoperative Nausea & Vomiting (PONV) Past Psychological History: Anxiety Smoking Status: Former smoker Past Alcohol Use History: None Reported Past Drug Use History: None Reported - Past Family History Mother Family Medical History: No Reported History Father Additional Family Medical History / Comment(s): pulmonary fibrosis General Exam Limitations: no limitations General appearance: alert, in no apparent distress Head exam: Present: atraumatic, normocephalic, normal inspection Eye exam: Present: normal appearance, PERRL, EOMI. Absent: scleral icterus, conjunctival injection, periorbital swelling ENT exam: Present: normal exam, mucous membranes moist Neck exam: Present: normal inspection. Absent: tenderness, meningismus, lymphadenopathy Respiratory exam: Present: normal lung sounds bilaterally. Absent: respiratory distress, wheezes, rales, rhonchi, stridor Cardiovascular Exam: Present: regular rate, normal rhythm, normal heart sounds. Absent: systolic murmur, diastolic murmur, rubs, gallop, clicks GI/Abdominal exam: Present: soft, normal bowel sounds. Absent: distended, tenderness, guarding, rebound, rigid Extremities exam: Present: normal capillary refill, other (weakness bilateral lower extremities). Absent: tenderness, pedal edema, joint swelling, calf tenderness Back exam: Present: normal inspection Neurological exam: Present: alert, oriented X3, CN II-XII intact Psychiatric exam: Present: normal affect, normal mood Skin exam: Present: warm, dry, intact, normal color. Absent: rash Course Vital Signs 12/28/19 12/28/19 12/28/19 11:17 11:45 13:42 Temperature 98.9 F Pulse Rate 66 68 Respiratory 20 20 20 Rate Blood Pressure 141/67 148/98 O2 Sat by Pulse 97 97 Oximetry 12/28/19 12/28/19 12/28/19 15:00 16:00 18:23 Temperature 98.7 F Pulse Rate 67 65 62 Respiratory 18 20 18 Rate Blood Pressure 148/78 146/78 140/72 O2 Sat by Pulse 98 98 99 Oximetry EKG Findings - EKG Comments: EKG Findings:: EKG demonstrates a normal sinus rhythm with ventricular rate of 63. OH interval 152. QRS 82. QTC 43. No acute ST segment elevations or depressions concerning for ischemic changes Medical Decision Making - Medical Decision Making Upon arrival patient is placed in room 7. A thorough history and physical exam was performed. I reviewed the patient's chart. Discussed case with Dr. Hays who agreed to admit the patient. Laboratory studies were conducted. Patient is currently awaiting a bed on the floor - Lab Data Result diagrams: 12/29/19 09:39 12/29/19 09:39 Lab Results 12/28/19 12/28/19 12/28/19 Range/Units 11:40 11:40 11:40 WBC 12.2 H (3.8-10.6) k/uL RBC 4.77 (3.80-5.40) m/uL Hgb 14.4 (11.4-16.0) gm/dL Hct 45.1 (34.0-46.0) % MCV 94.5 (80.0-100.0) fL MCH 30.2 (25.0-35.0) pg MCHC 32.0 (31.0-37.0) g/dL RDW 14.2 (11.5-15.5) % Plt Count 258 (150-450) k/uL MPV 8.1 Neutrophils % 78 % Lymphocytes % 14 % Monocytes % 4 % Eosinophils % 2 % Basophils % 1 % Neutrophils # 9.6 H (1.3-7.7) k/uL Lymphocytes # 1.7 (1.0-4.8) k/uL Monocytes # 0.5 (0-1.0) k/uL Eosinophils # 0.2 (0-0.7) k/uL Basophils # 0.1 (0-0.2) k/uL PT 10.5 (9.0-12.0) sec INR 1.0 (<1.2) APTT 22.6 (22.0-30.0) sec Sodium 137 (137-145) mmol/L Potassium 3.9 (3.5-5.1) mmol/L Chloride 93 L (98-107) mmol/L Carbon Dioxide 36 H (22-30) mmol/L Anion Gap 8 mmol/L BUN 22 H (7-17) mg/dL Creatinine 1.09 H (0.52-1.04) mg/dL Est GFR (CKD-EPI)AfAm 56 (>60 ml/min/1.73 sqM) Est GFR (CKD-EPI)NonAf 48 (>60 ml/min/1.73 sqM) Glucose 222 H (74-99) mg/dL Plasma Lactic Acid Parminder (0.7-2.0) mmol/L Calcium 9.4 (8.4-10.2) mg/dL Total Bilirubin 0.6 (0.2-1.3) mg/dL AST 25 (14-36) U/L ALT 17 (4-34) U/L Alkaline Phosphatase 61 (38-126) U/L Troponin I (0.000-0.034) ng/mL NT-Pro-B Natriuret Pep pg/mL Total Protein 7.0 (6.3-8.2) g/dL Albumin 4.2 (3.5-5.0) g/dL Urine Color Urine Appearance (Clear) Urine pH (5.0-8.0) Ur Specific [place] (1.001-1.035) Urine Protein (Negative) Urine Glucose (UA) (Negative) Urine Ketones (Negative) Urine Blood (Negative) Urine Nitrite (Negative) Urine Bilirubin (Negative) Urine Urobilinogen (<2.0) mg/dL Ur Leukocyte Esterase (Negative) Urine RBC (0-5) /hpf Urine WBC (0-5) /hpf Urine WBC Clumps (None) /hpf Ur Squamous Epith Cells (0-4) /hpf Urine Bacteria (None) /hpf Hyaline Casts (0-2) /lpf Urine Mucus (None) /hpf 12/28/19 12/28/19 12/28/19 Range/Units 11:40 11:40 11:40 WBC (3.8-10.6) k/uL RBC (3.80-5.40) m/uL Hgb (11.4-16.0) gm/dL Hct (34.0-46.0) % MCV (80.0-100.0) fL MCH (25.0-35.0) pg MCHC (31.0-37.0) g/dL RDW (11.5-15.5) % Plt Count (150-450) k/uL MPV Neutrophils % % Lymphocytes % % Monocytes % % Eosinophils % % Basophils % % Neutrophils # (1.3-7.7) k/uL Lymphocytes # (1.0-4.8) k/uL Monocytes # (0-1.0) k/uL Eosinophils # (0-0.7) k/uL Basophils # (0-0.2) k/uL PT (9.0-12.0) sec INR (<1.2) APTT (22.0-30.0) sec Sodium (137-145) mmol/L Potassium (3.5-5.1) mmol/L Chloride (98-107) mmol/L Carbon Dioxide (22-30) mmol/L Anion Gap mmol/L BUN (7-17) mg/dL Creatinine (0.52-1.04) mg/dL Est GFR (CKD-EPI)AfAm (>60 ml/min/1.73 sqM) Est GFR (CKD-EPI)NonAf (>60 ml/min/1.73 sqM) Glucose (74-99) mg/dL Plasma Lactic Acid Parminder 1.6 (0.7-2.0) mmol/L Calcium (8.4-10.2) mg/dL Total Bilirubin (0.2-1.3) mg/dL AST (14-36) U/L ALT (4-34) U/L Alkaline Phosphatase (38-126) U/L Troponin I <0.012 (0.000-0.034) ng/mL NT-Pro-B Natriuret Pep 120 pg/mL Total Protein (6.3-8.2) g/dL Albumin (3.5-5.0) g/dL Urine Color Urine Appearance (Clear) Urine pH (5.0-8.0) Ur Specific [place] (1.001-1.035) Urine Protein (Negative) Urine Glucose (UA) (Negative) Urine Ketones (Negative) Urine Blood (Negative) Urine Nitrite (Negative) Urine Bilirubin (Negative) Urine Urobilinogen (<2.0) mg/dL Ur Leukocyte Esterase (Negative) Urine RBC (0-5) /hpf Urine WBC (0-5) /hpf Urine WBC Clumps (None) /hpf Ur Squamous Epith Cells (0-4) /hpf Urine Bacteria (None) /hpf Hyaline Casts (0-2) /lpf Urine Mucus (None) /hpf 18/20 Range/Units 13:38 WBC (3.8-10.6) k/uL RBC (3.80-5.40) m/uL Hgb (11.4-16.0) gm/dL Hct (34.0-46.0) % MCV (80.0-100.0) fL MCH (25.0-35.0) pg MCHC (31.0-37.0) g/dL RDW (11.5-15.5) % Plt Count (150-450) k/uL MPV Neutrophils % % Lymphocytes % % Monocytes % % Eosinophils % % Basophils % % Neutrophils # (1.3-7.7) k/uL Lymphocytes # (1.0-4.8) k/uL Monocytes # (0-1.0) k/uL Eosinophils # (0-0.7) k/uL Basophils # (0-0.2) k/uL PT (9.0-12.0) sec INR (<1.2) APTT (22.0-30.0) sec Sodium (137-145) mmol/L Potassium (3.5-5.1) mmol/L Chloride (98-107) mmol/L Carbon Dioxide (22-30) mmol/L Anion Gap mmol/L BUN (7-17) mg/dL Creatinine (0.52-1.04) mg/dL Est GFR (CKD-EPI)AfAm (>60 ml/min/1.73 sqM) Est GFR (CKD-EPI)NonAf (>60 ml/min/1.73 sqM) Glucose (74-99) mg/dL Plasma Lactic Acid Parminder (0.7-2.0) mmol/L Calcium (8.4-10.2) mg/dL Total Bilirubin (0.2-1.3) mg/dL AST (14-36) U/L ALT (4-34) U/L Alkaline Phosphatase (38-126) U/L Troponin I (0.000-0.034) ng/mL NT-Pro-B Natriuret Pep pg/mL Total Protein (6.3-8.2) g/dL Albumin (3.5-5.0) g/dL Urine Color Yellow Urine Appearance Turbid H (Clear) Urine pH 5.5 (5.0-8.0) Ur Specific [place] 1.025 (1.001-1.035) Urine Protein 2+ H (Negative) Urine Glucose (UA) Negative (Negative) Urine Ketones Trace H (Negative) Urine Blood Small H (Negative) Urine Nitrite Negative (Negative) Urine Bilirubin 1+ H (Negative) Urine Urobilinogen 3.0 (<2.0) mg/dL Ur Leukocyte Esterase Large H (Negative) Urine RBC 10 H (0-5) /hpf Urine WBC >182 H (0-5) /hpf Urine WBC Clumps Many H (None) /hpf Ur Squamous Epith Cells 57 H (0-4) /hpf Urine Bacteria Many H (None) /hpf Hyaline Casts 69 H (0-2) /lpf Urine Mucus Many H (None) /hpf Disposition Clinical Impression: Weakness, Fall Disposition: ADMITTED IP TO THIS HOSP Condition: Stable Is patient prescribed a controlled substance at d/c from ED?: No Decision to Admit Reason: Admit from EC Decision Date: 12/28/19 Decision Time: 13:51
[2019-12-28 13:58] LABS: Appearance,Urine Turbid (Clear); Bacteria,Urine Many /hpf; Bilirubin,Urine 1+ (Negative); Blood,Urine Small (Negative); Color,Urine Yellow; Glucose,Urine (UA) Negative (Negative); Hyaline Casts,Urine 69 /lpf (0-2); Ketones,Urine Trace (Negative); Leukocyte Esterase,Urine Large (Negative); Mucus,Urine Many /hpf; Nitrite,Urine Negative (Negative); PH, Urine 5.5 (5.0-8.0); Protein,Urine 2+ (Negative); RBC,Urine 10 /hpf (0-5); Specific Gravity,Urine 1.025 (1.001-1.035); Squamous Epithelial Cell,Urine 57 /hpf (0-4); WBC,Urine >182 /hpf (0-5)
[2019-12-28] MEDS: SODIUM CHLORIDE 0.9% 1,000 ML IV SCH (14:37)
[2019-12-28] MEDS ORDERED: HYDROcodone/APAP 5-325MG 1 EACH TAB PO PRN (17:00)
[2019-12-28 18:00] LABS: Glucose,Whole Blood 162 mg/dL (75-99)
[2019-12-28] MEDS ORDERED: cefTRIAXone IN SWFI 1,000 MG/10 ML SYRINGE IVP STA (18:04)
[2019-12-28] MEDS: carvediloL 12.5 MG TAB PO SCH (18:04)
[2019-12-28] MEDS: GABAPENTIN 400 MG CAP PO SCH ×2 (18:04→21:33)
[2019-12-28] MEDS: INSULIN ASPART (NovoLOG) 100 UNIT/ML VIAL SQ SCH (18:05)
[2019-12-28] MEDS: ACETAMINOPHEN TAB 500 MG TAB PO PRN (18:09)
[2019-12-28 20:08] LABS: Glucose,Whole Blood 79 mg/dL (75-99)
--- NOTE | 2019-12-28 20:34 | HP ---
HISTORY AND PHYSICAL CHIEF COMPLAINT: Frequent falling, general debility and failure to thrive and not able to care for herself at home. HISTORY OF PRESENT ILLNESS: This is another admission for this 79-year-old female. She was in the hospital after frequent falling and came in for further evaluation with the idea that she would be placed. When she came into the hospital she agreed to go to rehab. However, she then refused. She requested to be discharged, stating that relatives would come in and take care of her and that everything would be fine. She no longer got home than she started repeatedly falling. Each time she did, the Fire Department or paramedics had to come and get her off the floor. She called on the day of readmission stating that she realized that she had to do something. She was quite short of breath at the time. She does have a history of heart failure. REVIEW OF SYSTEMS: Unchanged. She has no new symptoms other than the general debility and inability to walk, along with internal derangement of the left knee. Past medical history, family history, and personal and social can all be found in her recent admitting discharge summaries and are unchanged. PHYSICAL EXAMINATION: Blood pressure is 151/84 with a pulse of 79 and regular. Respirations were 35 and she was short of breath. She is afebrile. In general, she appeared to be obese, pale and short of breath. Head, ears, eyes, nose, mouth, and throat were normal. Neck veins could not be assessed. Chest demonstrated poor breath sounds with scattered rales and rhonchi. Cardiac exam demonstrated sinus tachycardia and the abdomen are protuberant. Extremities were normal except for stasis changes at the skin of the lower extremities. Neurologically, she is intact. She was admitted to the hospital with the diagnoses of. 1. Failure to thrive. 2. General debility due to disuse. 3. Morbid obesity. 4. Frequent falling. 5. Congestive heart failure. 6. Diabetes mellitus. PLAN: 1. Bed rest. 2. IV fluids. 3. Physical therapy. 4. Discharge to a assisted for rehab. MICHI / ELENA: [id number] /
[2019-12-28] MEDS: INSULIN DETEMIR (LEVEMIR) 100 UNIT/ML SYR SQ SCH (21:33)
[2019-12-28] MEDS: LOSARTAN 25 MG TAB PO SCH (21:33)
[2019-12-28] MEDS: PANTOPRAZOLE 40 MG TABLET PO SCH (21:33)
[2019-12-28 21:38] LABS: Glucose,Whole Blood 111 mg/dL (75-99)
[2019-12-29 00:03] LABS: Glucose,Whole Blood 217 mg/dL (75-99)
[2019-12-29] MEDS: LEVOTHYROXINE 100 MCG TAB PO SCH (05:15)
[2019-12-29 07:19] LABS: Glucose,Whole Blood 135 mg/dL (75-99)
[2019-12-29] MEDS: INSULIN ASPART (NovoLOG) 100 UNIT/ML VIAL SQ SCH ×3 (08:34→17:27)
[2019-12-29] MEDS: allopurinoL 300 MG TAB PO SCH (08:35)
[2019-12-29] MEDS: GABAPENTIN 400 MG CAP PO SCH ×4 (08:35→21:59)
[2019-12-29] MEDS: carvediloL 12.5 MG TAB PO SCH ×2 (08:35→17:26)
[2019-12-29] MEDS: PANTOPRAZOLE 40 MG TABLET PO SCH ×2 (08:36→20:48)
[2019-12-29] MEDS: NIFEdipine XL 90 MG TAB.ER.24 PO SCH (08:36)
[2019-12-29] MEDS: FUROSEMIDE 40 MG TAB PO SCH ×2 (08:36→16:39)
[2019-12-29] MEDS: SPIRONOLACTONE 25 MG TAB PO SCH (08:39)
--- NOTE | 2019-12-29 09:28 | ECHOF ---
Referral Reason:CHF MEASUREMENTS -------- HEIGHT: 149.9 cm WEIGHT: 112.0 kg BP: 134/59 RVIDd: 3.4 cm (< 3.3) IVSd: 1.2 cm (0.6 - 1.1) LVIDd: 4.4 cm (3.9 - 5.3) LVPWd: 1.1 cm (0.6 - 1.1) IVSs: 1.6 cm LVIDs: 3.0 cm LVPWs: 1.5 cm LA Diam: 4.2 cm (2.7 - 3.8) LAESV Index (A-L): 19.65 ml/m Ao Diam: 3.3 cm (2.0 - 3.7) AV Cusp: 1.4 cm (1.5 - 2.6) MV EXCURSION: 14.577 mm (> 18.000) MV EF SLOPE: 49 mm/s (70 - 150) EPSS: 1.0 cm MV E Agusto: 1.05 m/s MV DecT: 272 ms MV A Agusto: 1.23 m/s MV E/A Ratio: 0.85 AV maxP.58 mmHg AV meanP.41 mmHg RAP: 5.00 mmHg RVSP: 38.78 mmHg FINDINGS -------- Sinus rhythm. This was a technically adequate study. The left ventricular size is normal. There is borderline concentric left ventricular hypertrophy. Overall left ventricular systolic function is normal with, an EF between 60 - 65 %. The right ventricle is mildly enlarged. Normal LA size by volume 22+/-6 ml/m2. The right atrium is normal in size. Lipomatous Hypertrophy of the atrial septum is present There is mild aortic valve sclerosis. There is mild aortic stenosis present. Peak/mean gradient a cross the Aortic Valve is 18.58mmHg / 10.41mmHg. Mild mitral annular calcification present. Mild tricuspid regurgitation present. There is a small mass present. 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 The aortic root size is normal. Normal inferior vena cava with normal inspiratory collapse consistent with estimated right atrial pre ssure of 5 mmHg. There is no pericardial effusion. CONCLUSIONS -------- 1. The left ventricular size is normal. 2. There is borderline concentric left ventricular hypertrophy. 3. Overall left ventricular systolic function is normal with, an EF between 60 - 65 %. 4. The right ventricle is mildly enlarged. 5. Lipomatous Hypertrophy of the atrial septum is present 6. There is mild aortic valve sclerosis. 7. There is mild aortic stenosis present. 8. Peak/mean gradient across the Aortic Valve is 18.58mmHg / 10.41mmHg. 9. Mild mitral annular calcification present. 10. Mild tricuspid regurgitation present. 11. There is a small mass present. 12. 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 13. There is no pericardial effusion. [employer]PORT UTILITY WORKER: Jeniffer Gomez RDCS
[2019-12-29 10:12] LABS: Basophils # (A) 0.1 k/uL (0-0.2); Basophils % (A) 1 %; Eosinophils # (A) 0.4 k/uL (0-0.7); Eosinophils % (A) 5 %; HCT 40.4 % (34.0-46.0); HGB 12.9 gm/dL (11.4-16.0); Lymphocytes % (A) 11 %; MCH 30.3 pg (25.0-35.0); MCHC 31.8 g/dL (31.0-37.0); MCV 95.2 fL (80.0-100.0); Mean Platelet Volume 7.7; Monocytes # (A) 0.4 k/uL (0-1.0); Monocytes % (A) 4 %; Neutrophils # (A) 7.3 k/uL (1.3-7.7); Neutrophils % (A) 78 %; Platelet Count 213 k/uL (150-450); RBC 4.24 m/uL (3.80-5.40); WBC 9.3 k/uL (3.8-10.6)
[2019-12-29] MEDS ORDERED: ONDANSETRON 4 MG/2 ML VIAL IVP PRN (10:49)
[2019-12-29 11:12] LABS: Glucose,Whole Blood 138 mg/dL (75-99)
[2019-12-29 15:07] LABS: African American GFR (CKD) 80.7 (60.0-200.0); Anion Gap 10.9 mmol/L (4.00-12.00); Calcium 8.8 mg/dL (8.7-10.3); Carbon Dioxide 34.1 mmol/L (21.6-31.8); Non-African American GFR(CKD) 69.6 (60.0-200.0); Potassium 3.9 mmol/L (3.5-5.5)
[2019-12-29 17:08] LABS: Glucose,Whole Blood 170 mg/dL (75-99)
[2019-12-29] MEDS: SODIUM CHLORIDE 0.9% 1,000 ML IV SCH (17:21)
--- NOTE | 2019-12-29 19:35 | PN ---
PROGRESS NOTE DATE OF SERVICE: 12/29/2019 CHIEF COMPLAINT: General debility, failure to thrive and frequent falls. HISTORY OF PRESENT ILLNESS: This lady is doing fairly well, but she can barely roll over in bed. PHYSICAL EXAMINATION: Her chest is clear. Cardiac exam is normal. The abdomen is protuberant and soft. IMPRESSION: 1. General debility. 2. Obesity. 3. Failure to thrive. 4. Frequent falls and inability to ambulate. PLAN: Physical therapy and discharge planning. MMODL / YUMIKON: [id number] /
[2019-12-29 20:27] LABS: Glucose,Whole Blood 142 mg/dL (75-99)
[2019-12-29] MEDS: ACETAMINOPHEN TAB 500 MG TAB PO PRN (20:47)
[2019-12-29] MEDS: LOSARTAN 25 MG TAB PO SCH (20:48)
[2019-12-29] MEDS: INSULIN DETEMIR (LEVEMIR) 100 UNIT/ML SYR SQ SCH (20:48)
[2019-12-30] MEDS: LEVOTHYROXINE 100 MCG TAB PO SCH (05:38)
[2019-12-30 07:03] LABS: Glucose,Whole Blood 128 mg/dL (75-99)
[2019-12-30 07:11] VITALS: TEMP 97.9
[2019-12-30] MEDS: INSULIN ASPART (NovoLOG) 100 UNIT/ML VIAL SQ SCH ×3 (08:01→17:32)
[2019-12-30] MEDS: PANTOPRAZOLE 40 MG TABLET PO SCH (08:02)
[2019-12-30] MEDS: SPIRONOLACTONE 25 MG TAB PO SCH (08:02)
[2019-12-30] MEDS: NIFEdipine XL 90 MG TAB.ER.24 PO SCH (08:02)
[2019-12-30] MEDS: GABAPENTIN 400 MG CAP PO SCH ×3 (08:02→17:32)
[2019-12-30] MEDS: carvediloL 12.5 MG TAB PO SCH ×2 (08:02→16:58)
[2019-12-30] MEDS: allopurinoL 300 MG TAB PO SCH (08:02)
[2019-12-30] MEDS: FUROSEMIDE 40 MG TAB PO SCH ×2 (08:02→17:00)
[2019-12-30 11:27] LABS: Glucose,Whole Blood 158 mg/dL (75-99)
[2019-12-30 12:16] VITALS: BP 155/80; PULSE 70; RESP 17
--- NOTE | 2019-12-30 14:31 | DS ---
DISCHARGE SUMMARY CHIEF COMPLAINT: Failure to thrive, frequent falls, general debility. HISTORY OF PRESENT ILLNESS AND PHYSICAL EXAMINATION: Details of this lady's history and physical can be found in the initial workup. LABORATORY STUDIES: While she has hospital she had laboratory studies, details of which can be found in the laboratory section of her chart. COURSE IN THE HOSPITAL: After admission she was placed on bedrest, started on intravenous fluids and set up for discharge planning. She will receive physical and occupational therapies. A bed was arranged for her to go to [facility] on 12/30/2019. FINAL DIAGNOSES: 1. Frequent falling. 2. General debility. 3. Failure to thrive. 4. Disuse syndrome with leg weakness. 5. Hypertension. 6. Congestive heart failure. 7. Renal failure. 8. Insulin-dependent diabetes. 9. Congestive heart failure. OPERATIONS: None. CONSULTATIONS: None. She is improved. MMODL / IJN: [id number] /
[2019-12-30 16:50] LABS: Glucose,Whole Blood 175 mg/dL (75-99)
[2019-12-30] MEDS: SODIUM CHLORIDE 0.9% 1,000 ML IV SCH (16:57)
[2019-12-30] MEDS: ACETAMINOPHEN TAB 500 MG TAB PO PRN (17:00)
--- NOTE | 2020-01-01 15:05 | CDI ---
Documentation Clarification Form Date: 01/01/20 From: Neena Draper CCS Phone: If you have a question about this query, please contact Jackelin Rosales, Wiping Rag Washer at [phone] between 8am and 5pm. Admit Date: 12/28/19 Discharge Date: 12/30/19 Patient Name: Sierra Marquez Visit Number: [id number] ATTENTION: The Clinical Documentation Specialists (CDI) and [facility] Coding Staff appreciate your assistance in clarifying documentation. Please respond to the clarification below the line at the bottom and electronically sign. The CDI & [facility] Coding staff will review the response and follow-up if needed. Please note: Queries are made part of the Legal Health Record. If you have any questions, please contact the author of this message via ITS. Dear Dr. Hays, CHF is documented in the H&P, DS. History/Risk Factors: HTN, Morbid obesity / BMI 50, DM, Failure to Thrive Clinical Indicators: Short of breath VS/Pulse OX: BP 141/67, RR 20, UT 68, O2 Sat 97 BNP: 120 Echocardiogram Results: The left ventricular size is normal.There is borderline concentric left ventricular hypertrophy.Overall left ventricular systolic function is normal with, an EF between 60 - 65 %. The right ventricle is mildly enlarged. Chest X Ray: No evidence for acute pulmonary disease. Treatment: Lasix 40 mg PO BID In your professional opinion, can you please clarify the acuity and type of CHF if known? Systolic Heart Failure: Acute Chronic Acute on Chronic Diastolic Heart Failure: Acute Chronic Acute on Chronic Systolic & Diastolic Heart Failure: Acute Chronic Acute on Chronic Heart Failure Unable to Determine Other, please specify MTDD
--- NOTE | 2020-01-01 15:12 | CDI ---
Documentation Clarification Form Date: 01/01/20 From: Neena Draper CCS Phone: If you have a question about this query, please contact Jackelin Rosales, Field Seismologist at [phone] between 8am and 5pm. Admit Date: 12/28/19 Discharge Date:12/30/19 Patient Name: Sierra Marquez Visit Number: [id number] ATTENTION: The Clinical Documentation Specialists (CDI) and [facility] Coding Staff appreciate your assistance in clarifying documentation. Please respond to the clarification below the line at the bottom and electronically sign. The CDI & [facility] Coding staff will review the response and follow-up if needed. Please note: Queries are made part of the Legal Health Record. If you have any questions, please contact the author of this message via ITS. Dear Dr. Hays, Renal failure was documented in the DS. History/Risk Factors: HTN, DM, CHF, Morbid Obesity w/ BMI 50, Failure to Thrive Clinical Indicators: Kidney failure Current BUN/Cr/GFR: 22, 1.09, 48 Treatment: Monitor, Saline 0.9 % IV In order to capture the severity of condition, please clarify if the condition signifies: Acute renal failure, Please specify etiology (if known): Acute kidney injury Acute on chronic renal failure CKD Stage 1 GFR >90 CKD Stage 2 GFR 60-89 CKD Stage 3 GFR 30-59 CKD Stage 4 GFR 15-29 CKD Stage 5 GFR <15 Chronic renal failure/Chronic Kidney disease (CKD) please stage (if known): CKD Stage 1 GFR >90 CKD Stage 2 GFR 60-89 CKD Stage 3 GFR 30-59 CKD Stage 4 GFR 15-29 CKD Stage 5 GFR <15 Other, please specify Unable to determine MTDD
--- NOTE | 2020-01-11 05:45 | MISC ---
MISCELLANOUS REPORT QUERIES: Chronic systolic heart failure. GFR is 48, that is stage 3A. MMODL / IJN: [id number] /
== END 2019-12-30 18:50 | DRG 641 ==
LOC: EC 11:11 → 6NMEDSUR 13:51
PROVIDERS: ADMIT Family Medicine; ATTEND Family Medicine
DX: R62.7 Adult failure to thrive (principal); Z68.43 Body mass index [BMI] 50.0-59.9, adult; E66.2 Morbid (severe) obesity with alveolar hypoventilation; I13.0 Hypertensive heart and chronic kidney disease with heart failure and stage 1 through stage 4 chronic kidney disease, or unspecified chronic kidney disease; I50.22 Chronic systolic (congestive) heart failure; N18.31 Chronic kidney disease, stage 3a; E11.22 Type 2 diabetes mellitus with diabetic chronic kidney disease; Z20.828 Contact with and (suspected) exposure to other viral communicable diseases; J44.9 Chronic obstructive pulmonary disease, unspecified; Z79.4 Long term (current) use of insulin; E78.5 Hyperlipidemia, unspecified; M79.7 Fibromyalgia; K21.9 Gastro-esophageal reflux disease without esophagitis; M19.90 Unspecified osteoarthritis, unspecified site; G89.29 Other chronic pain; M54.30 Sciatica, unspecified side; K44.9 Diaphragmatic hernia without obstruction or gangrene; L40.9 Psoriasis, unspecified; M10.9 Gout, unspecified; F41.9 Anxiety disorder, unspecified; R29.6 Repeated falls; R53.81 Other malaise; N28.1 Cyst of kidney, acquired; R53.1 Weakness; E07.9 Disorder of thyroid, unspecified; Z79.899 Other long term (current) drug therapy; Z79.890 Hormone replacement therapy; Z87.01 Personal history of pneumonia (recurrent); Z91.81 History of falling; Z85.72 Personal history of non-Hodgkin lymphomas; Z98.51 Tubal ligation status; Z87.891 Personal history of nicotine dependence; Z88.2 Allergy status to sulfonamides; Z88.8 Allergy status to other drugs, medicaments and biological substances; Z83.6 Family history of other diseases of the respiratory system
CPT/HCPCS: 36415; 71046; 80048; 80053; 81001; 83605; 83880; 84484; 85025; 85610; 85730; 87086; 87635; 93005; 93306; 96374; 99285

== ENCOUNTER 2020-01-03 16:33 | Emergency (ER) | payer MEDICARE ==
[2020-01-03 16:44] VITALS: TEMP 98.8
--- NOTE | 2020-01-03 17:01 | ED ---
General Adult HPI - General Chief complaint: Recheck/Abnormal Lab/Rx Stated complaint: Mental Health Time Seen by Provider: 01/03/20 16:35 Source: patient, EMS, RN notes reviewed Mode of arrival: EMS Limitations: no limitations - History of Present Illness Initial comments: Patient is an 79-year-old female presenting to the emergency department for not liking her living conditions. Patient states she questioned if her blood pressure was high however has no other complaints. She states she was trying to get people to do stuff there and they just were standing there with her arms on the hips and looking at her. Patient has no specific complaints. Patient denies dyspnea and no chest pain. No weakness or confusion. Patient denies any suicidal or homicidal statements. - Related Data Home Medications Medication Instructions Recorded Confirmed Allopurinol [Zyloprim] 300 mg PO DAILY 07/21/13 12/28/19 Gabapentin [Neurontin] 400 mg PO QID 07/21/13 12/28/19 Insulin Glargine,Hum.rec.anlog 45 unit SQ HS 07/21/13 12/28/19 [Lantus Solostar] Levothyroxine Sodium [Synthroid] 100 mcg PO DAILY 07/21/13 12/28/19 Lovastatin [Mevacor] 20 mg PO HS 07/21/13 12/28/19 metFORMIN HCL [Glucophage] 850 mg PO TID 05/06/14 12/28/19 Furosemide [Lasix] 40 mg PO BID 01/21/17 12/28/19 Omeprazole [PriLOSEC] 20 mg PO BID 10/13/17 12/28/19 Acetaminophen [Tylenol] 500 mg PO TID PRN 08/19/18 12/28/19 INSULIN LISPRO (HumaLOG) [humaLOG] 15 units SQ AC-TID 08/19/18 12/28/19 Ergocalciferol (Vitamin D2) 1,250 mcg PO QMONTHLY 12/22/19 12/28/19 [Drisdol] Losartan Potassium [Cozaar] 25 mg PO HS 12/22/19 12/28/19 NIFEdipine [NIFEdipine ER 90 mg PO DAILY 12/22/19 12/28/19 (Osmotic)] Spironolactone [Aldactone] 25 mg PO DAILY 12/22/19 12/28/19 carvediloL [Carvedilol] 25 mg PO BID 12/22/19 12/28/19 traZODone HCL [Desyrel] 50 - 100 mg PO HS 12/22/19 12/28/19 Allergies Allergy/AdvReac Type Severity Reaction Status Date / Time nitrofurantoin Allergy Rash/Hives Verified 12/28/19 13:35 Sulfa (Sulfonamide Allergy Rash/Hives Verified 12/28/19 13:35 Antibiotics) STEROIDS AdvReac Hallucinati Uncoded 12/28/19 11:26 ons Review of Systems ROS Statement: Those systems with pertinent positive or pertinent negative responses have been documented in the HPI. ROS Other: All systems not noted in ROS Statement are negative. Constitutional: Denies: fever Eyes: Denies: eye pain ENT: Denies: ear pain Respiratory: Denies: cough Cardiovascular: Denies: chest pain Endocrine: Denies: fatigue Gastrointestinal: Denies: abdominal pain Genitourinary: Denies: dysuria Musculoskeletal: Denies: back pain Skin: Denies: rash Neurological: Denies: weakness Psychiatric: Reports: as per HPI Past Medical History Past Medical History: Cancer, Heart Failure, COPD, Diabetes Mellitus, Fibromyalgia, GERD/Reflux, Hyperlipidemia, Hypertension, Osteoarthritis (OA), Pneumonia, Skin Disorder, Sleep Apnea/CPAP/BIPAP, Thyroid Disorder Additional Past Medical History / Comment(s): COPD, obesity, obesity hypoventilation syndrome, lymphoma, obstructive sleep apnea, hiatal hernia, gout, psoriasis, cystic kidneys, sciatica, chronic back pain, , diabetes mellitus, fibroid tumors per history, degenerative arthritis., And the patient also has had previous history of recurrent urine infections History of Any Multi-Drug Resistant Organisms: None Reported Past Surgical History: Tubal Ligation Additional Past Surgical History / Comment(s): D&C, tumor removed from throat Past Anesthesia/Blood Transfusion Reactions: No Reported Reaction, Postoperative Nausea & Vomiting (PONV) Past Psychological History: Anxiety Smoking Status: Former smoker Past Alcohol Use History: None Reported Past Drug Use History: None Reported - Past Family History Mother Family Medical History: No Reported History Father Additional Family Medical History / Comment(s): pulmonary fibrosis General Exam Limitations: no limitations General appearance: alert, in no apparent distress Head exam: Present: normocephalic Eye exam: Present: normal appearance Neck exam: Present: normal inspection Respiratory exam: Present: normal lung sounds bilaterally Cardiovascular Exam: Present: regular rate, normal rhythm GI/Abdominal exam: Present: soft. Absent: tenderness Extremities exam: Present: normal inspection Neurological exam: Present: alert Psychiatric exam: Present: normal affect, normal mood Skin exam: Present: normal color Course Vital Signs 01/03/20 16:35 Temperature 98.8 F Pulse Rate 80 Respiratory 16 Rate Blood Pressure 149/77 O2 Sat by Pulse 97 Oximetry EKG Findings - EKG Comments: EKG Findings:: Normal sinus rhythm 82. DE 138. QRS 78. QT 354. QTC 413. Left axis. Q wave in lead III. No acute ST change. Medical Decision Making - Medical Decision Making Nursing staff did contact family who states patient has been a little bit more confused recently otherwise no other complaints. Case was discussed with Dr. Hays who is familiar to us patient and does recommend admission. He does request additional orders that can be placed for admission orders. - Lab Data Result diagrams: 01/03/20 17:50 Lab Results 01/03/20 Range/Units 17:50 WBC 13.1 H (3.8-10.6) k/uL RBC 4.95 (3.80-5.40) m/uL Hgb 14.7 (11.4-16.0) gm/dL Hct 45.6 (34.0-46.0) % MCV 92.2 (80.0-100.0) fL MCH 29.7 (25.0-35.0) pg MCHC 32.3 (31.0-37.0) g/dL RDW 13.9 (11.5-15.5) % Plt Count 272 (150-450) k/uL MPV 7.8 Neutrophils % 71 % Lymphocytes % 18 % Monocytes % 6 % Eosinophils % 2 % Basophils % 2 % Neutrophils # 9.3 H (1.3-7.7) k/uL Lymphocytes # 2.4 (1.0-4.8) k/uL Monocytes # 0.8 (0-1.0) k/uL Eosinophils # 0.3 (0-0.7) k/uL Basophils # 0.2 (0-0.2) k/uL - Radiology Data Radiology results: image reviewed Disposition Clinical Impression: Altered mental status Disposition: ADMITTED IP TO THIS HOSP Is patient prescribed a controlled substance at d/c from ED?: No Decision Time: 17:52
[2020-01-03] MEDS ORDERED: NALOXONE 0.4 MG/ML 1 ML VIAL IV PRN (17:52)
[2020-01-03] MEDS ORDERED: SODIUM CHLORIDE 0.9% 1,000 ML IV SCH (18:00)
--- NOTE | 2020-01-03 18:06 | XR ---
EXAMINATION TYPE: XR chest 2V DATE OF EXAM: 01/03/2020 COMPARISON: 12/28/2019 HISTORY: Short of breath There is no heart failure nor confluent pneumonic infiltrate. Costophrenic angles are clear. There is slight coarsening of the interstitial markings. Bony thorax is intact. There is no evidence of pleural effusion. IMPRESSION: Mild pulmonary fibrotic changes. No adverse change compared to old exam.
--- NOTE | 2020-01-03 18:45 | CT ---
EXAMINATION TYPE: CT brain wo con DATE OF EXAM: 01/03/2020 COMPARISON: None HISTORY: Altered mental status. CT DLP: 1099.4 mGycm Automated exposure control for dose reduction was used. There is 2.3 cm rounded high density mass in the left sylvian fissure. There is 2 cm rounded high de nsity mass right posterior frontal lobe cortex. There is some surrounding patchy white matter hypoden sity consistent with edema. There is slight shift of the midline to the left side. The calvarium is i ntact. Skull base is intact. IMPRESSION: Right side high density mass is suggestive of metastatic disease. There is moderate edema and cystic changes around the right frontal lobe lesion with some mass effect. This is suggestive of metastatic disease in this patient with a history of throat cancer. The left side lesion is probably within the sylvian fissure and the possibility of a giant aneurysm should be considered. There is no surrounding edema. Meningioma is also possible. Contrast CT scan would be helpful for further evaluation if clin ically indicated.
[2020-01-03 18:53] LABS: Basophils # (A) 0.2 k/uL (0-0.2); Basophils % (A) 2 %; Eosinophils # (A) 0.3 k/uL (0-0.7); Eosinophils % (A) 2 %; HCT 45.6 % (34.0-46.0); HGB 14.7 gm/dL (11.4-16.0); Lymphocytes # (A) 2.4 k/uL (1.0-4.8); Lymphocytes % (A) 18 %; MCH 29.7 pg (25.0-35.0); MCHC 32.3 g/dL (31.0-37.0); MCV 92.2 fL (80.0-100.0); Mean Platelet Volume 7.8; Monocytes # (A) 0.8 k/uL (0-1.0); Monocytes % (A) 6 %; Neutrophils # (A) 9.3 k/uL (1.3-7.7); Neutrophils % (A) 71 %; Platelet Count 272 k/uL (150-450); RBC 4.95 m/uL (3.80-5.40); RDW 13.9 % (11.5-15.5); WBC 13.1 k/uL (3.8-10.6)
[2020-01-03 19:04] LABS: Albumin 4.2 g/dL (3.5-5.0); Calcium 9.2 mg/dL (8.4-10.2); Potassium 5.7 mmol/L (3.5-5.1); Total Bilirubin 0.9 mg/dL (0.2-1.3); Total Protein 7.5 g/dL (6.3-8.2)
[2020-01-03 19:10] LABS: INR 1.1 (<1.2); Partial Thromboplastin Time 24.4 sec (22.0-30.0); Prothrombin Time 11.7 sec (9.0-12.0)
[2020-01-03] MEDS ORDERED: RX INFO: IV CONTRAST WAS GIVEN 1 EACH MISC MISCELLANE PRN (19:20)
[2020-01-03 19:37] LABS: Appearance,Urine Clear (Clear); Bilirubin,Urine Negative (Negative); Blood,Urine Negative (Negative); Color,Urine Yellow; Glucose,Urine (UA) Negative (Negative); Ketones,Urine Trace (Negative); Leukocyte Esterase,Urine Negative (Negative); Nitrite,Urine Negative (Negative); Protein,Urine Negative (Negative); Specific Gravity,Urine 1.012 (1.001-1.035); Urobilinogen,Urine <2.0 mg/dL (<2.0)
[2020-01-03 19:55] LABS: Amphetamine Screen,Urine Not Detected (NotDetected); Barbiturate Screen,Urine Not Detected (NotDetected); Benzodiazepines Screen,Urine Not Detected (NotDetected); Cocaine Screen,Urine Not Detected (NotDetected); Methadone Screen, Urine Not Detected (NotDetected); Opiate Screen,Urine Not Detected (NotDetected); Oxycodone Screen, Urine Not Detected (NotDetected); Phencyclidine Screen,Urine Not Detected (NotDetected); Tricyclic Antidepressant,Urine Not Detected (NotDetected); Urn Cannabinoid Scrn Not Detected (NotDetected)
[2020-01-03] MEDS ORDERED: levETIRAcetam IV 1,000 MG in SALINE 1 100ML.BAG IVPB STA (20:00)
--- NOTE | 2020-01-03 20:02 | CT ---
EXAMINATION TYPE: CT brain w con DATE OF EXAM: 01/03/2020 COMPARISON: 11 HISTORY: brain mass CT DLP: 1129.4 mGycm Automated exposure control for dose reduction was used. CONTRAST: Performed with IV Contrast, patient injected with 80cc mL of Isovue 300. There is 2 cm enhancing mass at the right posterior frontal lobe convexity. There is a second cortica l 2.5 cm enhancing mass lateral aspect of the right posterior frontal lobe. There are also multiple c ystic areas in the right posterior frontal and right parietal lobe with ring enhancement. This is con sistent with multiple tumors with necrosis. The largest cystic area measures 4.1 cm. There is white m atter edema in the right cerebral hemisphere adjacent to the masses. There is also some effacement of the right lateral ventricle and shift of the midline to the left side. There is rounded 1.7 cm densely enhancing mass within the left sylvian fissure. This is extra-axial a nd could be a giant aneurysm of the left middle cerebral artery. The left middle cerebral artery appe ars to enter the mass. The calvarium is intact. I see no bony destructive process. IMPRESSION: Multiple ring-enhancing masses involving the right parietal and right posterior frontal lobe consiste nt with metastatic disease and multiple necrotic tumors. Brain abscess not excluded. 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
[2020-01-03 20:18] VITALS: BP 144/66; PULSE 81; RESP 18
--- NOTE | 2020-01-03 20:55 | ED ---
Medical Decision Making - Medical Decision Making Abnormal computed tomography scan. CT with contrast shows multiple brain lesions, likely metastasis, cannot rule out abscess. 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 Case was discussed with neurologist Dr. Gavin who does recommend transfer. Case also discussed with Dr. Hays who agrees. Patient updated and agreeable. Patient has no neurological deficits on exam. Cranial nerves II-12 grossly intact. Strength 5/5 throughout. Sensation intact. Case was discussed with Dr. Figueredo who will accept transfer. Case also discussed with Dr. Leiva at [facility] will accept transfer. - Lab Data Result diagrams: 01/03/20 17:50 01/03/20 17:50 Lab Results 01/03/20 01/03/20 01/03/20 Range/Units 17:50 17:50 17:50 WBC 13.1 H (3.8-10.6) k/uL RBC 4.95 (3.80-5.40) m/uL Hgb 14.7 (11.4-16.0) gm/dL Hct 45.6 (34.0-46.0) % MCV 92.2 (80.0-100.0) fL MCH 29.7 (25.0-35.0) pg MCHC 32.3 (31.0-37.0) g/dL RDW 13.9 (11.5-15.5) % Plt Count 272 (150-450) k/uL MPV 7.8 Neutrophils % 71 % Lymphocytes % 18 % Monocytes % 6 % Eosinophils % 2 % Basophils % 2 % Neutrophils # 9.3 H (1.3-7.7) k/uL Lymphocytes # 2.4 (1.0-4.8) k/uL Monocytes # 0.8 (0-1.0) k/uL Eosinophils # 0.3 (0-0.7) k/uL Basophils # 0.2 (0-0.2) k/uL PT 11.7 (9.0-12.0) sec INR 1.1 (<1.2) APTT 24.4 (22.0-30.0) sec Sodium (137-145) mmol/L Potassium (3.5-5.1) mmol/L Chloride (98-107) mmol/L Carbon Dioxide (22-30) mmol/L Anion Gap mmol/L BUN (7-17) mg/dL Creatinine (0.52-1.04) mg/dL Est GFR (CKD-EPI)AfAm (>60 ml/min/1.73 sqM) Est GFR (CKD-EPI)NonAf (>60 ml/min/1.73 sqM) Glucose (74-99) mg/dL Calcium (8.4-10.2) mg/dL Total Bilirubin (0.2-1.3) mg/dL AST (14-36) U/L ALT (4-34) U/L Alkaline Phosphatase (38-126) U/L Troponin I (0.000-0.034) ng/mL Total Protein (6.3-8.2) g/dL Albumin (3.5-5.0) g/dL Urine Color Yellow Urine Appearance Clear (Clear) Urine pH 5.0 (5.0-8.0) Ur Specific Towner 1.012 (1.001-1.035) Urine Protein Negative (Negative) Urine Glucose (UA) Negative (Negative) Urine Ketones Trace H (Negative) Urine Blood Negative (Negative) Urine Nitrite Negative (Negative) Urine Bilirubin Negative (Negative) Urine Urobilinogen <2.0 (<2.0) mg/dL Ur Leukocyte Esterase Negative (Negative) Urine Opiates Screen Not Detected (NotDetected) Ur Oxycodone Screen Not Detected (NotDetected) Urine Methadone Screen Not Detected (NotDetected) Ur Propoxyphene Screen Not Detected (NotDetected) Ur Barbiturates Screen Not Detected (NotDetected) U Tricyclic Antidepress Not Detected (NotDetected) Ur Phencyclidine Scrn Not Detected (NotDetected) Ur Amphetamines Screen Not Detected (NotDetected) U Methamphetamines Scrn Not Detected (NotDetected) U Benzodiazepines Scrn Not Detected (NotDetected) Urine Cocaine Screen Not Detected (NotDetected) U Marijuana (THC) Screen Not Detected (NotDetected) 01/03/20 01/03/20 Range/Units 17:50 17:50 WBC (3.8-10.6) k/uL RBC (3.80-5.40) m/uL Hgb (11.4-16.0) gm/dL Hct (34.0-46.0) % MCV (80.0-100.0) fL MCH (25.0-35.0) pg MCHC (31.0-37.0) g/dL RDW (11.5-15.5) % Plt Count (150-450) k/uL MPV Neutrophils % % Lymphocytes % % Monocytes % % Eosinophils % % Basophils % % Neutrophils # (1.3-7.7) k/uL Lymphocytes # (1.0-4.8) k/uL Monocytes # (0-1.0) k/uL Eosinophils # (0-0.7) k/uL Basophils # (0-0.2) k/uL PT (9.0-12.0) sec INR (<1.2) APTT (22.0-30.0) sec Sodium 136 L (137-145) mmol/L Potassium 5.7 H (3.5-5.1) mmol/L Chloride 92 L (98-107) mmol/L Carbon Dioxide 33 H (22-30) mmol/L Anion Gap 11 mmol/L BUN 30 H (7-17) mg/dL Creatinine 0.95 (0.52-1.04) mg/dL Est GFR (CKD-EPI)AfAm 66 (>60 ml/min/1.73 sqM) Est GFR (CKD-EPI)NonAf 57 (>60 ml/min/1.73 sqM) Glucose 137 H (74-99) mg/dL Calcium 9.2 (8.4-10.2) mg/dL Total Bilirubin 0.9 (0.2-1.3) mg/dL AST 48 H (14-36) U/L ALT 22 (4-34) U/L Alkaline Phosphatase 52 (38-126) U/L Troponin I <0.012 (0.000-0.034) ng/mL Total Protein 7.5 (6.3-8.2) g/dL Albumin 4.2 (3.5-5.0) g/dL Urine Color Urine Appearance (Clear) Urine pH (5.0-8.0) Ur Specific Towner (1.001-1.035) Urine Protein (Negative) Urine Glucose (UA) (Negative) Urine Ketones (Negative) Urine Blood (Negative) Urine Nitrite (Negative) Urine Bilirubin (Negative) Urine Urobilinogen (<2.0) mg/dL Ur Leukocyte Esterase (Negative) Urine Opiates Screen (NotDetected) Ur Oxycodone Screen (NotDetected) Urine Methadone Screen (NotDetected) Ur Propoxyphene Screen (NotDetected) Ur Barbiturates Screen (NotDetected) U Tricyclic Antidepress (NotDetected) Ur Phencyclidine Scrn (NotDetected) Ur Amphetamines Screen (NotDetected) U Methamphetamines Scrn (NotDetected) U Benzodiazepines Scrn (NotDetected) Urine Cocaine Screen (NotDetected) U Marijuana (THC) Screen (NotDetected) Disposition Clinical Impression: Altered mental status, Brain mass Disposition: OTHER INSTITUTION NOT DEFINED Is patient prescribed a controlled substance at d/c from ED?: No Referrals: Aguilar Hays MD [Primary Care Provider] - 1-2 days - Out of Hospital Transfer - Req. Specs Out of Hospital Transfer - Requested Specifics: Other Emergency Center
[2020-01-04] MEDS ORDERED: levETIRAcetam 500 MG TAB PO SCH (09:00)
== END 2020-01-03 22:05 | disposition other institution (70) ==
LOC: EC 16:33 → 5NMEDONC 17:53 → UNDOADMIN 17:53 → EC 22:05
DX: G93.9 Disorder of brain, unspecified (principal); F41.9 Anxiety disorder, unspecified; I50.9 Heart failure, unspecified; E11.9 Type 2 diabetes mellitus without complications; K21.9 Gastro-esophageal reflux disease without esophagitis; E78.5 Hyperlipidemia, unspecified; M19.90 Unspecified osteoarthritis, unspecified site; E07.9 Disorder of thyroid, unspecified; G47.33 Obstructive sleep apnea (adult) (pediatric); J44.9 Chronic obstructive pulmonary disease, unspecified; M10.9 Gout, unspecified; Z79.4 Long term (current) use of insulin; Z79.899 Other long term (current) drug therapy; Z79.890 Hormone replacement therapy; Z88.2 Allergy status to sulfonamides; Z88.8 Allergy status to other drugs, medicaments and biological substances; Z87.891 Personal history of nicotine dependence
CPT/HCPCS: 93005; 80053; 84484; 85025; 85610; 85730; 81003; 80306; 71046; 70450; 70460; 99285; 96365; 96361; J1953; Q9967